=== PATIENT | female | born 1995 | race Caucasian/White ===

== ENCOUNTER 2017-10-22 11:27 | Emergency (ER) | payer OTHER ==
--- OUTSIDE RECORDS SUMMARY | 2017-10-22 11:30 | XMS REPORT ---
:1995 Author Organization [facility] Address [address] [place] [address] Care Team Providers Name Role Phone DR NIDIA LESTER Unavailable Unavailable Problems This patient has no known problems. Allergies, Adverse Reactions, Alerts This patient has no known allergies or adverse reactions. Medications This patient has no known medications. Encounters Start End Encounter Admission Attending Care Care Encounter Date/Time Date/Time Type Type Clinicians Facility Department ID 2017-08-31 2017-09-01 Emergency E NIDIA LESTER [facility] [id number] 21:44:00 01:30:00 Results Test Description Test Time Test Comments Text Results Atomic Results Result Comments THYROID PANEL/SCREEN (TSH) 2017-08-31 22:45:00 Test Item Value Reference Range Comments TSH (test code=A57) 1.110 uIU/mL 0.358-3.740 [id number] 22:40:00 Test Item Value Reference Range Comments ACETAMINPH (test code=94M) <2.0 ug/mL 10.0-30.0 COMPREHENSIVE METABOLIC [id number] 22:40:00 Test Item Value Reference Range Comments GLUCOSE (test code=06D) 72 mg/dL 75-100 SODIUM (test code=01A) 139 mmol/L 136-145 POTASSIUM (test code=01B) 3.6 mmol/L 3.6-5.1 CHLORIDE (test code=04A) 107 mmol/L 98-107 CO2 (test code=02A) 25 mmol/L 22-32 ANION GAP (test code=ANG) 10.6 mmol/L BUN (test code=05D) 22 mg/dL 7-18 CREATININE (test code=03E) 0.7 mg/dL 0.4-1.1 BUN/CREA (test code=BCR) 30 12-20 CALCIUM (test code=09D) 8.4 mg/dL 8.3-9.5 BILI TOTAL (test code=11A) 0.5 mg/dL 0.2-1.0 PROTEIN (test code=07D) 7.8 g/dL 6.4-8.2 ALBUMIN (test code=08D) 4.0 g/dL 3.5-4.8 GLOBULIN (test code=GLB) 3.8 g/dL 1.5-3.8 ALB/GLOB (test code=AGRR) 1.1 1.0-2.6 ALK PHOS (test code=35A) 68 IU/L 42-121 AST (test code=30A) 20 IU/L <=42 ALT (test code=31A) 17 IU/L <=78 BRAIN NATRIURETIC [id number] 22:31:00 Test Item Value Reference Range Comments proBNP (test code=PBNP) 16 pg/mL 0-125 ALCOHOL BLOOD (ETOH)2017-08-31 22:30:00 Test Item Value Reference Range Comments ETOH (test code=HALC) ETHANOL The result is to be used only for medical purposes ALCOHOL (test code=56A) <10 mg/dL <=10 CARDIAC [id number] 22:30:00 Test Item Value Reference Range Comments TROPONIN I (test code=A84) <0.015 ng/mL 0.000-0.045 CKMB (test code=A49) 1.3 ng/mL <=3.6 CPK (test code=32A) 60 IU/L 26-192 [id number] 22:26:00 Test Item Value Reference Range Comments SALICYLATE (test code=94B) 2.9 mg/dL 2.8-20.0 AMYLASE AND [id number] 22:26:00 Test Item Value Reference Range Comments AMYLASE (test code=10A) 24 U/L 28-100 LIPASE (test code=60A) 97 IU/L 73-393 AMMONIA [id number] 22:25:00 Test Item Value Reference Range Comments AMMONIA (test code=54A) 16 umol/L 11-32 [id number] 22:25:00 Test Item Value Reference Range Comments MAGNESIUM (test code=48A) 2.2 mg/dL 1.8-2.4 DRUGS OF [id number] 22:17:00 Test Item Value Reference Range Comments DRUG SCRN (test code=HDOA) URINE DRUG SCREEN This is an unconfirmed screening result and should not be used for non-medical purposes CANNABINOD (test code=88C) Negative NEGATIVE AMPHETAMINE (test code=84A) POSITIVE NEGATIVE BENZODIAZP (test code=86A) POSITIVE NEGATIVE BARBITURAT (test code=85A) Negative NEGATIVE OPIATES (test code=92B) Negative NEGATIVE COCAINE (test code=87A) POSITIVE NEGATIVE PHENCYCLID (test code=66A) Negative NEGATIVE METHADONE (test code=64A) POSITIVE NEGATIVE DOAH (test code=DOAH) URINE DRUG SCREEN Cut-off values are as follows: ---- Cannabinoids 50 ng/mL Cocaine 300 ng/mL Amphetamines 1000 ng/mL Phencyclidine 25 ng/mL Benzodiazepines 200 ng.mL Methadone 300 ng/mL Barbiturates 200 ng/mL Opiates 2000 ng/mL SERUM [id number] 22:17:00 Test Item Value Reference Range Comments PREG SRM (test code=PGS) NEGATIVE NEGATIVE CBC (INCLUDES AUTOMATED DIFFERENTIAL)2017-08-31 22:16:00 Test Item Value Reference Range Comments WBC (test code=WBC) 5.4 10\S\3/uL 4.5-11.0 RBC (test code=RBC) 3.66 10\S\6/uL 4.30-5.70 HGB (test code=HBG) 10.9 g/dL 12.0-15.5 HCT (test code=HCT) 32.3 % 35.0-44.0 MCV (test code=MCV) 88.3 fL 81.0-99.0 MCH (test code=MCH) 29.8 pg 27.0-31.0 MCHC (test code=MCHC) 33.7 g/dL 32.0-36.0 RDW (test code=RDW) 12.7 % 11.5-14.5 PLT (test code=PLT) 278 10\S\3/uL 130-400 MPV (test code=MPV) 11.0 fL 9.4-12.4 NEUTROP # (test code=NE#) 1.5 10\S\3/uL 1.6-8.0 LYMPH # (test code=LY#) 3.1 10\S\3/uL 1.1-3.5 MONOCYTE # (test code=MO#) 0.5 10\S\3/uL 0.0-1.1 EOSINOPH # (test code=EO#) 0.2 10\S\3/uL 0.0-0.7 BASOPHIL # (test code=BA#) 0.0 10\S\3/uL 0.0-0.3 IG # (test code=IG#) 0.01 10\S\3/uL 0.00-0.06 NRBC # (test code=NRBC#) 0.00 10\S\3/uL 0.00-0.01 NEUTROPH % (test code=NE%) 28.2 % 35.0-73.0 LYMPH % (test code=LY%) 58.5 % 20.0-55.0 MONO % (test code=MO%) 9.5 % 2.5-10.0 EOSINOPH % (test code=EO%) 3.2 % 0.0-5.0 BASOPHIL % (test code=BA%) 0.4 % 0.0-2.0 IG % (test code=IG%) 0.2 % 0.0-0.8 NRBC% (test code=NRBC%) 0.0 % 0.0-0.2 MANDIFF (test code=MDIFF) NO NO RBC MORPH (test code=RBCMOR) NORMAL PRO TIME AND [id number] 22:16:00 Test Item Value Reference Range Comments PT (test code=TT) 11.7 s 9.8-13.6 INR (test code=INR) 1.0 INRH (test code=INRH) SUGGESTED THERAPEUTIC RANGE FOR INR: 2.5 - 3.5 For Patients with Prosthetic Valves or Patients with recurrent Thromboembolic Events 2.0 - 3.0 For Most Other Applications PTT (test code=PTT) 18.3 s 20.2-38.0 PTTH (test code=PTTH) To monitor the effectiveness of heparin, we offer the Anti-Xa (Heparin Assay). It can be used for either unfractionated or LMW Heparin. Order Code is ANTI-XA [id number] 22:09:00 Test Item Value Reference Range Comments COLOR (test code=COLU) YELLOW YELLOW CLARITY (test code=CLA) CLEAR CLEAR GLUCOSE UR (test code=UA GLUCOSE) NEGATIVE NEGATIVE BILI UR (test code=BILE) NEGATIVE NEGATIVE KETONES UR (test code=MARTHA) TRACE NEGATIVE SP GRAVITY (test code=SPGR) 1.021 1.005-1.030 PH UR (test code=PH) 6.0 4.5-8.0 PROTEIN UR (test code=PU) NEGATIVE NEGATIVE UROBIL UR (test code=UROQ) 1.0 EU/dL 0.2-1.0 NITRITE UR (test code=NITRITE) NEGATIVE NEGATIVE BLOOD UR (test code=UA BLOOD) NEGATIVE NEGATIVE LEUK ES UR (test code=LEUK) NEGATIVE NEGATIVE
[2017-10-22] MEDS ORDERED: BUPIVACAINE 0.5% PF 10 ML VIAL ONE (11:59)
--- NOTE | 2017-10-22 12:09 | ER ---
Nurse's Notes [facility] Name: Shruti Garcia Age: 21 yrs Sex: Female : 1995 Arrival Date: 10/22/2017 Time: 11:30 Bed 18 Private MD: NIDIA LAMA Diagnosis: Dental Pain;Anxiety disorder, unspecified Presentation: 10/22 11:51 Presenting complaint: Patient states: "I just moved from [place] and I've been having ss bad panic attacks, and I'm out of my alprazolam. Also, my ear and jaw having been hurting since this morning." Pt c/o R ear and jaw pain since this morning. Denies fever. Transition of care: patient was not received from another setting of care. Onset of symptoms is unknown. Risk Assessment: Do you want to hurt yourself or someone else? Patient reports no desire to harm self or others. Initial Sepsis Screen: Does the patient meet any 2 criteria? No. Patient's initial sepsis screen is negative. Does the patient have a suspected source of infection? No. Patient's initial sepsis screen is negative. Care prior to arrival: None. 11:51 Method Of Arrival: Ambulatory 11:51 Acuity: TIMOTEO 4 ss 11:55 Note Pt reports she is currently taking alprazolam because her daughter in May of this year. Historical: - Allergies: 11:55 Neurontin; ss - Home Meds: 11:55 alprazolam 2 mg Oral tab as needed [Active]; ss - PMHx: 11:55 Anxiety; ss - PSHx: 11:55 c section; ss - Immunization history:: Adult Immunizations unknown. - Social history:: Smoking status: Patient uses tobacco products, 4 cigarettes/ day. - Ebola Screening: : Patient denies exposure to infectious person Patient denies travel to an Ebola-affected area in the 21 days before illness onset. Screenin:45 Abuse screen: Denies threats or abuse. Denies injuries from another. Nutritional ss screening: No deficits noted. Tuberculosis screening: Never had TB. Fall Risk None identified. Assessment: 11:45 General: Appears in no apparent distress. comfortable, Behavior is calm, cooperative, ss Denies fever, feeling ill, fatigue, chills. Pain: Complains of pain in right ear and right cheek Pain currently is 8 out of 10 on a pain scale. Quality of pain is described as aching, Pain began this morning Is continuous. Neuro: Level of Consciousness is awake, alert, obeys commands. Cardiovascular: Capillary refill < 3 seconds is brisk in bilateral fingers. Respiratory: Airway is patent Respiratory effort is even, unlabored, Respiratory pattern is regular, symmetrical. GI: Patient currently denies abdominal pain, nausea. EENT: Nares are clear Oral mucosa is moist. Poor dentition noted. Throat is clear. Derm: Skin is intact, is healthy with good turgor, Skin is dry, Skin is pink, warm \\T\\ dry. normal. Musculoskeletal: Circulation, motion, and sensation intact. Range of motion: intact in all extremities, Swelling absent. Vital Signs: 11:55 BP 109 / 57; Pulse 94; Resp 16; Temp 98.5(TE); Pulse Ox 99% on R/A; ss ED Course: 11:30 Patient arrived in ED. sb2 11:31 NIDIA LAMA is Private Physician. sb2 11:44 [facility] 11:44 Deniz Guo MD is Attending Physician. [facility] 11:45 Patient has correct armband on for positive identification. Bed in low position. Call ss light in reach. 11:53 Triage completed. 11:55 Arm band placed on right wrist. 11:56 Jr Navarrete LVN is Primary Nurse. em 12:29 No provider procedures requiring assistance completed. Patient did not have IV access ss during this emergency room visit. Administered Medications: 11:58 CANCELLED (hospital doesn't have stock): [place] - Benzocaine 20 % 1 em application Mucous Membrane in affected area once 12:07 Drug: Marcaine (0.5 %) 10 ml Volume: 10 ml; Route: Infiltration; em Outcome: 12:08 Discharge ordered by . [facility] 12:29 Discharged to home ambulatory. 12:29 Condition: improved 12:29 Discharge instructions given to patient, Instructed on discharge instructions, follow up and referral plans. medication usage, Demonstrated understanding of instructions, follow-up care, medications, Prescriptions given X 2. 12:29 Patient left the ED. Signatures: Gerald Gallegos PA PA jmm Munoz, Edgar, LVN LVN em Marylou Stockton, RN RN ss Billeau, Makayla sb2
--- NOTE | 2017-10-22 12:09 | EDPHYS ---
Physician Documentation [facility] Name: Shruti Garcia Age: 21 yrs Sex: Female : 1995 Arrival Date: 10/22/2017 Time: 11:30 Bed 18 Private MD: NIDIA LAMA ED Physician Deniz Guo HPI: 10/22 11:53 This 21 yrs old Female presents to ER via Unassigned with complaints of PANIC jmm ATTACK, Toothache. 11:53 The patient presents with pain. The problem is located in the right cheek, right ear jmm and mouth. Onset: The symptoms/episode began/occurred gradually, 1 day(s) ago. Patient complains of dental pain radiating to the right ear beginning this morning. Patient states she is also out of her xanax which she takes as needed. Patient denies fever, . Historical: - Allergies: 11:55 Neurontin; ss - Home Meds: 11:55 alprazolam 2 mg Oral tab as needed [Active]; ss - PMHx: 11:55 Anxiety; ss - PSHx: 11:55 c section; ss - Immunization history:: Adult Immunizations unknown. - Social history:: Smoking status: Patient uses tobacco products, 4 cigarettes/ day. - Ebola Screening: : Patient denies exposure to infectious person Patient denies travel to an Ebola-affected area in the 21 days before illness onset. ROS: 11:58 Constitutional: Negative for fever, chills, and weight loss. jmm 11:58 ENT: Positive for dental pain. 11:58 Psych: Positive for anxiety. 11:58 All other systems are negative. Exam: 11:58 Head/Face: atraumatic. jmm 11:58 Constitutional: The patient appears alert, awake, anxious, uncomfortable. 11:58 ENT: Posterior pharynx: is normal, no edema appreciated, Dental exam: avulsion, diffusely, dental caries. 11:58 Neck: ROM/movement: is normal. 11:58 Cardiovascular: Rate: normal. 11:58 Respiratory: the patient does not display signs of respiratory distress, Respirations: normal. 11:58 Musculoskeletal/extremity: ROM: intact in all extremities. 11:58 Skin: Appearance: Color: normal in color. 11:58 Neuro: Orientation: is normal, Mentation: is normal, Memory: is normal, Gait: is steady. 11:58 Psych: Behavior/mood is pleasant, cooperative. Vital Signs: 11:55 BP 109 / 57; Pulse 94; Resp 16; Temp 98.5(TE); Pulse Ox 99% on R/A; ss MDM: 11:51 Patient medically screened. [facility] 12:07 Data reviewed: vital signs, nurses notes. Counseling: I had a detailed discussion with [facility] the patient and/or guardian regarding: the historical points, exam findings, and any diagnostic results supporting the discharge/admit diagnosis, the need for outpatient follow up, to return to the emergency department if symptoms worsen or persist or if there are any questions or concerns that arise at home. 12:30 ED course: The patient experienced immediate relief after administration of marcaine in [facility] the infraorbital region and submental region of the right side of the face. The patient will be prescribed PCN VK and patient will be given a refill of alprazolam. Patient is advised of the need to follow up with PCP for further care of anxiety. Patient is given return precautions for increased pain or swelling, fever, ext. Patient understood and agrees with the plan of care. . Administered Medications: 11:58 CANCELLED (hospital doesn't have stock): [place] - Benzocaine 20 % 1 em application Mucous Membrane in affected area once 12:07 Drug: Marcaine (0.5 %) 10 ml Volume: 10 ml; Route: Infiltration; em Disposition: 14:34 Co-signature as Attending Physician, Deniz Guo MD. rn Disposition: 10/22/17 12:08 Discharged to Home. Impression: Dental Pain, Anxiety disorder, unspecified. - Condition is Stable. - Discharge Instructions: Panic Attacks, Dental Pain. - Prescriptions for penicillin V potassium 500 mg Oral tablet - take 1 tablet by ORAL route every 6 hours for 10 days; 40 tablet. Xanax 1 mg Oral Tablet - take 1 tablet by ORAL route every 8 hours As needed; 10 tablet. - Medication Reconciliation Form, Thank You Letter, Antibiotic Education, Prescription Opioid Use form. - Follow up: Private Physician; When: 2 - 3 days; Reason: Continuance of care. Signatures: Gerald Gallegos PA PA [facility] Jr Navarrete, COMPUTER TECHNICIAN COMPUTER TECHNICIAN em Deniz Guo MD MD rn Marylou Stockton RN RN ss Corrections: (The following items were deleted from the chart) 11:58 11:52 [place] - Benzocaine [place] 20 % 1 application Mucous Membrane in affected em area once ordered. ping 12:29 12:08 10/22/2017 12:08 Discharged to Home. Impression: Dental Pain; Anxiety disorder, ss unspecified. Condition is Stable. Forms are Medication Reconciliation Form, Thank You Letter, Antibiotic Education, Prescription Opioid Use. Follow up: Private Physician; When: 2 - 3 days; Reason: Continuance of care. ping
[2017-10-22 12:33] VITALS: BP 109/57; TEMP 98.5; O2SAT 99
== END 2017-10-22 12:29 | disposition home or self-care (01) ==
LOC: ER 11:27
DX: K08.89 Other specified disorders of teeth and supporting structures (principal); F41.9 Anxiety disorder, unspecified; F17.210 Nicotine dependence, cigarettes, uncomplicated
CPT/HCPCS: 99283

== ENCOUNTER 2017-10-22 18:56 | Emergency (ER) | payer OTHER ==
--- OUTSIDE RECORDS SUMMARY | 2017-10-22 18:59 | XMS REPORT ---
:1995 [facility] Address [address] [place] [address] Care Team Providers Name Role Phone DR NIDIA LESTER Unavailable Unavailable Problems This patient has no known problems. Allergies, Adverse Reactions, Alerts This patient has no known allergies or adverse reactions. Medications This patient has no known medications. Encounters Start End Encounter Admission Attending Care Care Encounter Date/Time Date/Time Type Type Clinicians Facility Department ID 2017-08-31 2017-09-01 Emergency E NIDIA LESTER [facility] [id number] 21:44:00 01:30:00 Results Test Description Test Time Test Comments Text Results Atomic Results Result Comments THYROID PANEL/SCREEN (TSH) 2017-08-31 22:45:00 Test Item Value Reference Range Comments TSH (test code=A57) 1.110 uIU/mL 0.358-3.740 [id number] 22:40:00 Test Item Value Reference Range Comments ACETAMINPH (test code=94M) <2.0 ug/mL 10.0-30.0 COMPREHENSIVE METABOLIC [id number] 22:40:00 Test Item Value Reference Range Comments [...] (test code=31A) 17 IU/L <=78 BRAIN NATRIURETIC [id number] 22:31:00 Test Item Value Reference Range Comments proBNP (test code=PBNP) 16 pg/mL 0-125 ALCOHOL BLOOD (ETOH)2017-08-31 22:30:00 Test Item Value Reference Range Comments ETOH (test code=HALC) ETHANOL The result is to be used only for medical purposes ALCOHOL (test code=56A) <10 mg/dL <=10 CARDIAC [id number] 22:30:00 Test Item Value Reference Range Comments TROPONIN I (test code=A84) <0.015 ng/mL 0.000-0.045 CKMB (test code=A49) 1.3 ng/mL <=3.6 CPK (test code=32A) 60 IU/L 26-192 [id number] 22:26:00 Test Item Value Reference Range Comments SALICYLATE (test code=94B) 2.9 mg/dL 2.8-20.0 AMYLASE AND [id number] 22:26:00 Test Item Value Reference Range Comments AMYLASE (test code=10A) 24 U/L 28-100 LIPASE (test code=60A) 97 IU/L 73-393 AMMONIA [id number] 22:25:00 Test Item Value Reference Range Comments AMMONIA (test code=54A) 16 umol/L 11-32 [id number] 22:25:00 Test Item Value Reference Range Comments MAGNESIUM (test code=48A) 2.2 mg/dL 1.8-2.4 DRUGS OF [id number] 22:17:00 Test Item Value Reference Range Comments [...] Barbiturates 200 ng/mL Opiates 2000 ng/mL SERUM [id number] 22:17:00 Test Item Value Reference Range Comments [...] MORPH (test code=RBCMOR) NORMAL PRO TIME AND [id number] 22:16:00 Test Item Value Reference Range Comments [...] or LMW Heparin. Order Code is ANTI-XA [id number] 22:09:00 Test Item Value Reference Range Comments [...]
[2017-10-22] MEDS ORDERED: HYDROCODONE/APAP 5/325 MG TAB ONE (19:46)
--- NOTE | 2017-10-22 19:51 | ER ---
Nurse's Notes [facility] Name: Shruti Garcia Age: 21 yrs Sex: Female : 1995 Arrival Date: 10/22/2017 Time: 19:00 Bed 19 Private MD: NIDIA LAMA Diagnosis: Dental Pain Presentation: 10/22 19:20 Presenting complaint: Patient states: "I came in here earlier when my ear and jaw pain. aj1 He gave me shot up here, but it didn't work for my ear. The pain is bad. Its intolerable. I can't eat, I can't nothing" Denies N/V/D, denies fever. Transition of care: patient was not received from another setting of care. Onset of symptoms was October 22, 2017. Risk Assessment: Do you want to hurt yourself or someone else? Patient reports no desire to harm self or others. Initial Sepsis Screen: Does the patient meet any 2 criteria? No. Patient's initial sepsis screen is negative. Does the patient have a suspected source of infection? No. Patient's initial sepsis screen is negative. Care prior to arrival: None. 19:20 Method Of Arrival: EMS: [facility] aj1 19:20 Acuity: TIMOTEO 4 aj1 Triage Assessment: 19:22 General: Appears uncomfortable, Behavior is anxious. Pain: Complains of pain in right aj1 ear and right jaw Pain does not radiate. Pain currently is 10 out of 10 on a pain scale. Quality of pain is described as sharp, throbbing, Pain began this morning Is continuous. EENT: Reports pain in right ear and right jaw. Neuro: Level of Consciousness is awake, alert, obeys commands, Oriented to person, place, time, situation, Speech is normal, Facial symmetry appears normal. Cardiovascular: Patient's skin is warm and dry. Respiratory: Airway is patent Respiratory effort is even, unlabored, Respiratory pattern is regular, symmetrical. GI: No signs and/or symptoms were reported involving the gastrointestinal system. Derm: Skin is pink, warm \\T\\ dry. black. Musculoskeletal: Circulation, motion, and sensation intact. DATA CONSULTANT: 19:22 LMP 09/24/2017 aj1 Historical: - Allergies: 19:22 Neurontin; aj1 19:22 Clindamycin; aj1 - Home Meds: 19:22 alprazolam 2 mg Oral tab as needed [Active]; aj1 - PMHx: 19:22 Anxiety; PREECLAMPSIA; aj1 - PSHx: 19:22 ; aj1 - Immunization history:: Adult Immunizations up to date. - Social history:: Smoking status: Patient uses tobacco products, 4 cigarettes per day. - Ebola Screening: : Patient denies travel to an Ebola-affected area in the 21 days before illness onset. Screenin:56 Abuse screen: Denies threats or abuse. Denies injuries from another. Nutritional bs1 screening: No deficits noted. Tuberculosis screening: No symptoms or risk factors identified. Fall Risk None identified. Assessment: 19:30 General: Appears uncomfortable, Behavior is anxious. Pain: Complains of pain in face bs1 and right jaw and right ear Pain radiates to right ear. Neuro: Level of Consciousness is awake, alert, obeys commands, Oriented to person, place, time, situation, Appropriate for age. Cardiovascular: Denies chest pain, shortness of breath, Heart tones S1 S2 present Capillary refill < 3 seconds Patient's skin is warm and dry. Respiratory: Airway is patent Trachea midline Breath sounds are clear bilaterally. GI: No signs and/or symptoms were reported involving the gastrointestinal system. : No signs and/or symptoms were reported regarding the genitourinary system. Derm: Skin is intact, Skin is pink, warm \\T\\ dry. normal. Musculoskeletal: Circulation, motion, and sensation intact. Capillary refill < 3 seconds, Range of motion: intact in all extremities. 19:30 EENT: Poor dentition noted. Reports pain in face and right jaw and right ear. bs1 Vital Signs: 19:22 BP 108 / 79; Pulse 97; Resp 18; Temp 98.5(O); Pulse Ox 99% on R/A; Weight 49.9 kg (R); aj1 Height 5 ft. 4 in. (162.56 cm) (R); Pain 10/10; 19:22 Body Mass Index 18.88 (49.90 kg, 162.56 cm) aj1 ED Course: 19:00 Patient arrived in ED. sb2 19:01 NIDIA LAMA is Private Physician. sb2 19:22 Triage completed. aj1 19:22 Arm band placed on Patient placed in an exam room. aj1 19:31 Cox, Zeinab, RN is Primary Nurse. bs1 19:40 Gerald Gallegos PA is PHCP. [facility] 19:40 Tye Gallegos MD is Attending Physician. [facility] 19:56 Patient has correct armband on for positive identification. Bed in low position. Call bs1 light in reach. Side rails up X 1. Pulse ox on. NIBP on. 19:56 No provider procedures requiring assistance completed. Patient did not have IV access bs1 during this emergency room visit. Administered Medications: 19:46 Drug: [place] 5 mg-325 mg 1 tabs Route: PO; bs1 19:57 Follow up: Response: No adverse reaction bs1 Outcome: 19:51 Discharge ordered by MD. [facility] 19:56 Discharged to home ambulatory. bs1 19:56 Discharged to home with significant other. 19:56 Condition: stable 19:56 Discharge instructions given to patient, Instructed on discharge instructions, follow up and referral plans. medication usage, Demonstrated understanding of instructions, follow-up care, medications, Prescriptions given X 1. 19:57 Patient left the ED. bs1 Signatures: Sanjuanita Win RN RN aj1 Gerald Gallegos PA PA [facility] Zeinab Cox, RN RN bs1 Makayla Novak sb2 Corrections: (The following items were deleted from the chart) 19:49 19:30 EENT: No signs and/or symptoms were reported regarding the EENT system. bs1 bs1
--- NOTE | 2017-10-22 19:52 | EDPHYS ---
Physician Documentation [facility] Name: Shruti Garcia Age: 21 yrs Sex: Female : 1995 Arrival Date: 10/22/2017 Time: 19:00 Bed 19 Private MD: NIDIA LAMA ED Physician Tye Gallegos HPI: 10/22 19:42 This 21 yrs old Female presents to ER via EMS with complaints of PANIC jmm ATTACK, Toothache. 19:42 The patient presents with pain. Onset: The symptoms/episode began/occurred gradually, jmm today. Duration: The symptoms are continuous. Associated signs and symptoms: Pertinent negatives: fever. This is a 21 year old female with no chronic medical conditions that presents to the ED with right sided dental pain and right ear pain. Patient was previously evaluated in the ED and prescribed antibiotics. Patient states her dental bloack has worn off. . 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 - Social history:: Smoking status: Patient uses tobacco products, 4 cigarettes per day. - Ebola Screening: : Patient denies travel to an Ebola-affected area in the 21 days before illness onset. ROS: 19:42 Constitutional: Negative for fever. jmm 19:42 ENT: Positive for dental pain. 19:42 Psych: Positive for anxiety. 19:42 All other systems are negative. Exam: 19:42 Head/Face: atraumatic. jmm 19:42 Constitutional: The patient appears in no acute distress, alert, awake. 19:42 Head/face: No facial swelling appreciated, no submandibular tenderness appreciated. . 19:42 ENT: Dental exam: dental caries, diffusely. 19:42 Neck: ROM/movement: is normal. 19:42 Cardiovascular: Rate: normal. 19:42 Respiratory: the patient does not display signs of respiratory distress, Respirations: normal. 19:42 Musculoskeletal/extremity: ROM: intact in all extremities. 19:42 Skin: Appearance: Color: normal in color. 19:42 Neuro: Orientation: is normal, Mentation: is normal, Memory: is normal, Gait: is steady. 19:42 Psych: Behavior/mood is pleasant, cooperative. Vital Signs: 19:22 BP 108 / 79; Pulse 97; Resp 18; Temp 98.5(O); Pulse Ox 99% on R/A; Weight 49.9 kg (R); aj1 Height 5 ft. 4 in. (162.56 cm) (R); Pain 10/10; 19:22 Body Mass Index 18.88 (49.90 kg, 162.56 cm) aj1 MDM: 19:42 Patient medically screened. [facility] 19:51 Data reviewed: vital signs, nurses notes. Counseling: I had a detailed discussion with [facility] the patient and/or guardian regarding: the historical points, exam findings, and any diagnostic results supporting the discharge/admit diagnosis, radiology results, the need for outpatient follow up, to return to the emergency department if symptoms worsen or persist or if there are any questions or concerns that arise at home. Administered Medications: 19:46 Drug: [place] 5 mg-325 mg 1 tabs Route: PO; bs1 19:57 Follow up: Response: No adverse reaction bs1 Disposition: 10/22/17 19:51 Discharged to Home. Impression: Dental Pain. - Condition is Stable. - Discharge Instructions: Dental Pain. - Prescriptions for Tramadol 50 mg Oral Tablet - take 1 tablet by ORAL route every 8 hours as needed; 6 tablet. - Medication Reconciliation Form, Thank You Letter, Antibiotic Education, Prescription Opioid Use form. - Follow up: Private Physician; When: 2 - 3 days; Reason: Continuance of care. Addendum: 10/24/2017 08:39 Co-signature as Attending Physician, Tye Gallegos MD I agree with the assessment and c reyes plan of care. Signatures: Sanjuanita Win, RN RN aj1 Tye Gallegos MD MD cha Mickail, Joel, PA PA [facility] Zeinab Cox, RN RN bs1 Corrections: (The following items were deleted from the chart) 10/22 19:57 19:51 10/22/2017 19:51 Discharged to Home. Impression: Dental Pain. Condition is bs1 Stable. Forms are Medication Reconciliation Form, Thank You Letter, Antibiotic Education, Prescription Opioid Use. Follow up: Private Physician; When: 2 - 3 days; Reason: Continuance of care. ping
[2017-10-22 20:03] VITALS: BP 108/79; TEMP 98.5; O2SAT 99
== END 2017-10-22 19:57 | disposition home or self-care (01) ==
LOC: ER 18:56
DX: K08.89 Other specified disorders of teeth and supporting structures (principal); Z72.0 Tobacco use; Z88.3 Allergy status to other anti-infective agents; Z88.8 Allergy status to other drugs, medicaments and biological substances
CPT/HCPCS: 99284

== ENCOUNTER 2017-11-12 14:24 | Emergency (ER) | payer OTHER ==
--- OUTSIDE RECORDS SUMMARY | 2017-11-12 14:26 | XMS REPORT ---
:1995 Author Organization [facility] Address [address] [place] [address] Dr. Perez [address] [place] [id number] Care Team Providers Name Role Phone DR NIDIA LESTER Unavailable Unavailable Problems This patient has no known problems. Allergies, Adverse Reactions, Alerts This patient has no known allergies or adverse reactions. Medications This patient has no known medications. Encounters Start End Encounter Admission Attending Care Care Encounter Date/Time Date/Time Type Type Clinicians Facility Department ID 2017-08-31 2017-09-01 Emergency E NIDIA LESTER [facility] [id number] 21:44:00 01:30:00 Results Test Description Test Time Test Comments Text Results Atomic Results Result Comments THYROID PANEL/SCREEN (TSH) 2017-08-31 22:45:00 Test Item Value Reference Range Comments TSH (test code=A57) 1.110 uIU/mL 0.358-3.740 [id number] 22:40:00 Test Item Value Reference Range Comments ACETAMINPH (test code=94M) <2.0 ug/mL 10.0-30.0 COMPREHENSIVE METABOLIC [id number] 22:40:00 Test Item Value Reference Range Comments [...] (test code=31A) 17 IU/L <=78 BRAIN NATRIURETIC [id number] 22:31:00 Test Item Value Reference Range Comments proBNP (test code=PBNP) 16 pg/mL 0-125 ALCOHOL BLOOD (ETOH)2017-08-31 22:30:00 Test Item Value Reference Range Comments ETOH (test code=HALC) ETHANOL The result is to be used only for medical purposes ALCOHOL (test code=56A) <10 mg/dL <=10 CARDIAC [id number] 22:30:00 Test Item Value Reference Range Comments TROPONIN I (test code=A84) <0.015 ng/mL 0.000-0.045 CKMB (test code=A49) 1.3 ng/mL <=3.6 CPK (test code=32A) 60 IU/L 26-192 [id number] 22:26:00 Test Item Value Reference Range Comments SALICYLATE (test code=94B) 2.9 mg/dL 2.8-20.0 AMYLASE AND [id number] 22:26:00 Test Item Value Reference Range Comments AMYLASE (test code=10A) 24 U/L 28-100 LIPASE (test code=60A) 97 IU/L 73-393 AMMONIA [id number] 22:25:00 Test Item Value Reference Range Comments AMMONIA (test code=54A) 16 umol/L 11-32 [id number] 22:25:00 Test Item Value Reference Range Comments MAGNESIUM (test code=48A) 2.2 mg/dL 1.8-2.4 DRUGS OF [id number] 22:17:00 Test Item Value Reference Range Comments [...] Barbiturates 200 ng/mL Opiates 2000 ng/mL SERUM [id number] 22:17:00 Test Item Value Reference Range Comments [...] MORPH (test code=RBCMOR) NORMAL PRO TIME AND [id number] 22:16:00 Test Item Value Reference Range Comments [...] or LMW Heparin. Order Code is ANTI-XA [id number] 22:09:00 Test Item Value Reference Range Comments [...]
--- NOTE | 2017-11-12 15:37 | ER ---
Nurse's Notes [facility] Name: Shruti Garcia Age: 21 yrs Sex: Female : 1995 Arrival Date: 11/12/2017 Time: 14:26 Bed 27 Private MD: Diagnosis: Periapical abscess without sinus;Anxiety disorder due to known physiological condition Presentation: 11/12 14:29 Presenting complaint: Patient states: "I have an abscess tooth and I just need a refill aa5 of my alprazolam until I can see the anxiety doctor this because I can't get it under control". Pt states "I am scheduled to get the tooth out on ". Transition of care: patient was not received from another setting of care. Onset of symptoms was October 2017. Risk Assessment: Do you want to hurt yourself or someone else? Patient reports no desire to harm self or others. Initial Sepsis Screen: Does the patient meet any 2 criteria? No. Patient's initial sepsis screen is negative. Does the patient have a suspected source of infection? No. Patient's initial sepsis screen is negative. Care prior to arrival: None. 14:29 Method Of Arrival: Ambulatory aa5 14:29 Acuity: TIMOTEO 5 aa5 Triage Assessment: 15:44 EENT:. mg2 15:50 EENT: Reports pain in upper right second molar and upper right first molar (#3) and mg2 upper right second molar (#2). 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 - Social history:: Smoking status: Patient/guardian denies using tobacco, Patient/guardian denies using alcohol, street drugs, IV drugs. - Ebola Screening: : No symptoms or risks identified at this time. Screenin:09 Abuse screen: Denies threats or abuse. Denies injuries from another. Nutritional mg2 screening: No deficits noted. Tuberculosis screening: No symptoms or risk factors identified. Fall Risk None identified. Assessment: 15:04 General: Appears in no apparent distress. comfortable, Behavior is calm, cooperative. mg2 Pain: Complains of pain in teeth Pain does not radiate. Pain currently is 5 out of 10 on a pain scale. Quality of pain is described as aching, Pain began 2 weeks Is intermittent, Alleviated by medications. Neuro: Level of Consciousness is awake, alert, obeys commands, Oriented to person, place, time, situation. Cardiovascular: Capillary refill < 3 seconds Patient's skin is warm and dry. Respiratory: Airway is patent Respiratory effort is even, unlabored, Respiratory pattern is regular, symmetrical. GI: No signs and/or symptoms were reported involving the gastrointestinal system. : No signs and/or symptoms were reported regarding the genitourinary system. EENT: Dental caries noted in upper right second molar (#2) and upper right first molar (#3). Derm: Skin is intact, Skin is pink, warm \\T\\ dry. normal. Musculoskeletal: No signs and/or symptoms reported regarding the musculoskeletal system. Vital Signs: 14:31 BP 128 / 81; Pulse 119; Resp 20 S; Temp 98.3(O); Pulse Ox 98% on R/A; Weight 52.16 kg aa5 (R); Height 5 ft. 3 in. (160.02 cm) (R); Pain 10/10; 15:10 BP 100 / 72; Pulse 89; Resp 18; Pulse Ox 100% on R/A; Pain 4/10; mg2 14:31 Body Mass Index 20.37 (52.16 kg, 160.02 cm) aa5 ED Course: 14:26 Patient arrived in ED. aa5 14:30 Triage completed. aa5 14:30 Arm band placed on. aa5 14:56 Sp Bolden, MARTIN is Primary Nurse. mg2 15:02 Jorge Blackwell PA is PHCP. jr8 15:02 Deniz Guo MD is Attending Physician. jr8 15:10 Patient has correct armband on for positive identification. Bed in low position. Call mg2 light in reach. Side rails up X 1. Door closed. Warm blanket given. 15:43 No provider procedures requiring assistance completed. Patient did not have IV access mg2 during this emergency room visit. Administered Medications: No medications were administered Outcome: 15:36 Discharge ordered by . jr8 15:43 Discharged to home ambulatory, with family. mg2 15:43 Condition: stable 15:43 Discharge instructions given to patient, family, Instructed on discharge instructions, follow up and referral plans. medication usage, Demonstrated understanding of instructions, follow-up care, medications, Prescriptions given X 2. 15:45 Patient left the ED. mg2 Signatures: Digna Villagomez RN RN aa5 Jorge Blackwell PA PA jr8 Sp Bolden RN RN mg2 Corrections: (The following items were deleted from the chart) 14:31 14:29 Presenting complaint: Patient states: "I have an abscess tooth and I just need a aa5 refill of my alprazolam until I can see the anxiety doctor this Thday". aa5 14:32 14:29 Presenting complaint: Patient states: "I have an abscess tooth and I just need a aa5 refill of my alprazolam until I can see the anxiety doctor this Thday". Pt states "I am scheduled to get the tooth out on " aa5
--- NOTE | 2017-11-12 15:37 | EDPHYS ---
Physician Documentation [facility] Name: Shruti Garcia Age: 21 yrs Sex: Female : 1995 Arrival Date: 11/12/2017 Time: 14:26 Bed 27 Private MD: ED Physician Deniz Guo HPI: 11/12 16:00 This 21 yrs old Female presents to ER via Ambulatory with complaints of jr8 Anxiety. 16:00 Patient stated that she thinks she has another tooth abscess. Stated that she has had jr8 this once before and got better after antibiotics. Stated that she has both PCP and dentist appointment for this . Stated that she is out of her xanax and is having bad panic attacks before . Severity of symptoms: At their worst the symptoms were moderate in the emergency department the symptoms are unchanged. The patient has experienced a previous episode. The patient has not recently seen a physician. 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 - Social history:: Smoking status: Patient/guardian denies using tobacco, Patient/guardian denies using alcohol, street drugs, IV drugs. - Ebola Screening: : No symptoms or risks identified at this time. ROS: 16:00 Eyes: Negative for injury, pain, redness, and discharge, Neck: Negative for injury, jr8 pain, and swelling, Cardiovascular: Negative for chest pain, palpitations, and edema, Respiratory: Negative for shortness of breath, cough, wheezing, and pleuritic chest pain, Abdomen/GI: Negative for abdominal pain, nausea, vomiting, diarrhea, and constipation, Back: Negative for injury and pain, MS/Extremity: Negative for injury and deformity, Skin: Negative for injury, rash, and discoloration, Neuro: Negative for headache, weakness, numbness, tingling, and seizure. 16:00 ENT: Positive for dental pain, Gum pain Negative for sinus congestion, sinus pain, sore throat, difficulty swallowing, difficulty handling secretions, hoarseness. 16:00 Psych: Positive for anxiety, depression, Negative for homicidal ideation, insomnia, suicide gesture, suicidal ideation. Exam: 16:00 Eyes: Pupils equal round and reactive to light, extra-ocular motions intact. Lids and jr8 lashes normal. Conjunctiva and sclera are non-icteric and not injected. Cornea within normal limits. Periorbital areas with no swelling, redness, or edema. Neck: Trachea midline, no thyromegaly or masses palpated, and no cervical lymphadenopathy. Supple, full range of motion without nuchal rigidity, or vertebral point tenderness. No Meningismus. Cardiovascular: Regular rate and rhythm with a normal S1 and S2. No gallops, murmurs, or rubs. Normal PMI, no JVD. No pulse deficits. Respiratory: Lungs have equal breath sounds bilaterally, clear to auscultation and percussion. No rales, rhonchi or wheezes noted. No increased work of breathing, no retractions or nasal flaring. Abdomen/GI: Soft, non-tender, with normal bowel sounds. No distension or tympany. No guarding or rebound. No evidence of tenderness throughout. Back: No spinal tenderness. No costovertebral tenderness. Full range of motion. Skin: Warm, dry with normal turgor. Normal color with no rashes, no lesions, and no evidence of cellulitis. MS/ Extremity: Pulses equal, no cyanosis. Neurovascular intact. Full, normal range of motion. Neuro: Awake and alert, GCS 15, oriented to person, place, time, and situation. Cranial nerves II-XII grossly intact. Motor strength 5/5 in all extremities. Sensory grossly intact. Cerebellar exam normal. Normal gait. 16:00 ENT: External ear(s): are unremarkable, Ear canal(s): are normal, TM's: are normal, Nose: is normal, Mouth: Lips: moist, Oral mucosa: pink and intact, moist, Gums: pink, reddened, swollen, on the upper right second molar, Dental exam: pain, that is moderate, specifically in the upper right second molar (#2). 16:00 Psych: Behavior/mood is cooperative, anxious, depressed, Patient depressed and anxious over recent of her child. Affect is calm, Oriented to person, place, time, Patient has no thoughts/intents to harm self or others. Judgement / Insight is normal. Memory is normal. Delusions/hallucinations are not present. Vital Signs: 14:31 BP 128 / 81; Pulse 119; Resp 20 S; Temp 98.3(O); Pulse Ox 98% on R/A; Weight 52.16 kg aa5 (R); Height 5 ft. 3 in. (160.02 cm) (R); Pain 10/10; 15:10 BP 100 / 72; Pulse 89; Resp 18; Pulse Ox 100% on R/A; Pain 4/10; mg2 14:31 Body Mass Index 20.37 (52.16 kg, 160.02 cm) aa5 MDM: 15:02 Patient medically screened. jr8 15:35 Data reviewed: vital signs, nurses notes, and as a result, I will discharge patient. jr8 Data interpreted: Pulse oximetry: on room air is 100 %. Interpretation: normal. Counseling: I had a detailed discussion with the patient and/or guardian regarding: the historical points, exam findings, and any diagnostic results supporting the discharge/admit diagnosis, the need for outpatient follow up, a dentist, a family practitioner, to return to the emergency department if symptoms worsen or persist or if there are any questions or concerns that arise at home. Administered Medications: No medications were administered Disposition: 16:13 Co-signature as Attending Physician, Deniz Guo MD. rn Disposition: 11/12/17 15:36 Discharged to Home. Impression: Periapical abscess without sinus, Anxiety disorder due to known physiological condition. - Condition is Stable. - Discharge Instructions: Panic Attacks, Dental Abscess, Root Canal. - Prescriptions for Augmentin 875- 125 mg Oral Tablet - take 1 tablet by ORAL route every 12 hours for 10 days; 20 tablet. Xanax 1 mg Oral Tablet - take 1 tablet by ORAL route every 8 hours As needed; 10 tablet. - Medication Reconciliation Form, Thank You Letter, Antibiotic Education, Prescription Opioid Use form. - Follow up: Private Physician; When: 2 - 3 days; Reason: Recheck today's complaints, Continuance of care, Re-evaluation by your physician. - Problem is new. - Symptoms have improved. Signatures: Deniz Guo MD MD rn Calderon, Audri, RN RN aa5 Jorge Blackwell PA PA jr8 Gardose, Sp, RN RN mg2 Corrections: (The following items were deleted from the chart) 15:45 15:36 11/12/2017 15:36 Discharged to Home. Impression: Periapical abscess without mg2 sinus; Anxiety disorder due to known physiological condition. Condition is Stable. Forms are Medication Reconciliation Form, Thank You Letter, Antibiotic Education, Prescription Opioid Use. Follow up: Private Physician; When: 2 - 3 days; Reason: Recheck today's complaints, Continuance of care, Re-evaluation by your physician. Problem is new. Symptoms have improved. jr8
[2017-11-12 15:52] VITALS: TEMP 98.3
[2017-11-12 15:53] VITALS: BP 100/72; O2SAT 100
== END 2017-11-12 15:45 | disposition home or self-care (01) ==
LOC: ER 14:24
DX: K04.6 Periapical abscess with sinus (principal); F41.9 Anxiety disorder, unspecified; Z88.1 Allergy status to other antibiotic agents; Z88.8 Allergy status to other drugs, medicaments and biological substances
CPT/HCPCS: 99282

== ENCOUNTER 2017-11-22 22:21 | Emergency (ER) | payer OTHER ==
--- OUTSIDE RECORDS SUMMARY | 2017-11-22 22:24 | XMS REPORT ---
:1995 Author [facility] Address [address] [place] [address] Dr. Perez [address] [place] [address] Care Team Providers Name Role Phone DR NIDIA LESTER Unavailable Unavailable Problems This patient has no known problems. Allergies, Adverse Reactions, Alerts This patient has no known allergies or adverse reactions. Medications This patient has no known medications. Encounters Start End Encounter Admission Attending Care Care Encounter Date/Time Date/Time Type Type Clinicians Facility Department ID 2017-08-31 2017-09-01 Emergency E NIDIA LESTER [facility] [id number] 21:44:00 01:30:00 Results Test Description Test Time Test Comments Text Results Atomic Results Result Comments THYROID PANEL/SCREEN (TSH) 2017-08-31 22:45:00 Test Item Value Reference Range Comments TSH (test code=A57) 1.110 uIU/mL 0.358-3.740 [id number] 22:40:00 Test Item Value Reference Range Comments ACETAMINPH (test code=94M) <2.0 ug/mL 10.0-30.0 COMPREHENSIVE METABOLIC [id number] 22:40:00 Test Item Value Reference Range Comments [...] (test code=31A) 17 IU/L <=78 BRAIN NATRIURETIC [id number] 22:31:00 Test Item Value Reference Range Comments proBNP (test code=PBNP) 16 pg/mL 0-125 ALCOHOL BLOOD (ETOH)2017-08-31 22:30:00 Test Item Value Reference Range Comments ETOH (test code=HALC) ETHANOL The result is to be used only for medical purposes ALCOHOL (test code=56A) <10 mg/dL <=10 CARDIAC [id number] 22:30:00 Test Item Value Reference Range Comments TROPONIN I (test code=A84) <0.015 ng/mL 0.000-0.045 CKMB (test code=A49) 1.3 ng/mL <=3.6 CPK (test code=32A) 60 IU/L 26-192 [id number] 22:26:00 Test Item Value Reference Range Comments SALICYLATE (test code=94B) 2.9 mg/dL 2.8-20.0 AMYLASE AND [id number] 22:26:00 Test Item Value Reference Range Comments AMYLASE (test code=10A) 24 U/L 28-100 LIPASE (test code=60A) 97 IU/L 73-393 AMMONIA [id number] 22:25:00 Test Item Value Reference Range Comments AMMONIA (test code=54A) 16 umol/L 11-32 [id number] 22:25:00 Test Item Value Reference Range Comments MAGNESIUM (test code=48A) 2.2 mg/dL 1.8-2.4 DRUGS OF [id number] 22:17:00 Test Item Value Reference Range Comments [...] Barbiturates 200 ng/mL Opiates 2000 ng/mL SERUM [id number] 22:17:00 Test Item Value Reference Range Comments [...] MORPH (test code=RBCMOR) NORMAL PRO TIME AND [id number] 22:16:00 Test Item Value Reference Range Comments [...] or LMW Heparin. Order Code is ANTI-XA [id number] 22:09:00 Test Item Value Reference Range Comments [...]
[2017-11-22] MEDS ORDERED: HYDROCODONE/APAP 5/325 MG TAB ONE (23:23)
[2017-11-22] MEDS ORDERED: ONDANSETRON 4 MG (ODT) TAB ONE (23:23)
[2017-11-23] MEDS ORDERED: IBUPROFEN 200 MG TAB PO ONE (00:11)
[2017-11-23] MEDS ORDERED: BUPIVACAINE 0.5% PF 10 ML VIAL ONE (00:11)
--- NOTE | 2017-11-23 00:42 | EDPHYS ---
Physician Documentation [facility] Name: Shruti Garcia Age: 21 yrs Sex: Female : 1995 Arrival Date: 11/22/2017 Time: 22:23 Bed 30 Private MD: NIDIA LAMA ED Physician Nils Henry HPI: 11/23 07:47 This 21 yrs old Female presents to ER via Ambulatory with complaints of TOOTH wa PAIN AFTER EXTRACTION. 07:47 The patient presents with pain, dry socket. The problem is located in the R upper wa molar. Onset: The symptoms/episode began/occurred today. Duration: The symptoms are continuous, and are steadily getting worse. Modifying factors: The symptoms are alleviated by nothing, the symptoms are aggravated by nothing. Associated signs and symptoms: The patient has no apparent associated signs or symptoms. Severity of symptoms: At their worst the symptoms were moderate, in the emergency department the symptoms are actually worse, moderately. The patient has not experienced similar symptoms in the past. The patient has been recently seen by a physician: her dentist. 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 - Social history:: Smoking status: Patient uses tobacco products, smokes one-half pack cigarettes per day. - Ebola Screening: : Patient negative for fever greater than or equal to 101.5 degrees Fahrenheit, and additional compatible Ebola Virus Disease symptoms Patient denies exposure to infectious person Patient denies travel to an Ebola-affected area in the 21 days before illness onset. - Family history:: not pertinent. - Hospitalizations: : No recent hospitalization is reported. ROS: 11/23 07:49 Constitutional: Negative for fever, chills, and weight loss, Eyes: Negative for injury, wa pain, redness, and discharge, Neck: Negative for injury, pain, and swelling, Cardiovascular: Negative for chest pain, palpitations, and edema, Respiratory: Negative for shortness of breath, cough, wheezing, and pleuritic chest pain, Abdomen/GI: Negative for abdominal pain, nausea, vomiting, diarrhea, and constipation, Back: Negative for injury and pain, : Negative for injury, bleeding, discharge, and swelling, MS/Extremity: Negative for injury and deformity, Skin: Negative for injury, rash, and discoloration, Neuro: Negative for headache, weakness, numbness, tingling, and seizure, Psych: Negative for depression, anxiety, suicide ideation, homicidal ideation, and hallucinations. ENT: Positive for dental pain. Exam: 07:49 Constitutional: This is a well developed, well nourished patient who is awake, alert, wa and in no acute distress. Head/Face: Normocephalic, atraumatic. Eyes: Pupils equal round and reactive to light, extra-ocular motions intact. Lids and lashes normal. Conjunctiva and sclera are non-icteric and not injected. Cornea within normal limits. Periorbital areas with no swelling, redness, or edema. Neck: Trachea midline, no thyromegaly or masses palpated, and no cervical lymphadenopathy. Supple, full range of motion without nuchal rigidity, or vertebral point tenderness. No Meningismus. Chest/axilla: Normal chest wall appearance and motion. Nontender with no deformity. No lesions are appreciated. Cardiovascular: Regular rate and rhythm with a normal S1 and S2. No gallops, murmurs, or rubs. Normal PMI, no JVD. No pulse deficits. Respiratory: Lungs have equal breath sounds bilaterally, clear to auscultation and percussion. No rales, rhonchi or wheezes noted. No increased work of breathing, no retractions or nasal flaring. Abdomen/GI: Soft, non-tender, with normal bowel sounds. No distension or tympany. No guarding or rebound. No evidence of tenderness throughout. Back: No spinal tenderness. No costovertebral tenderness. Full range of motion. Skin: Warm, dry with normal turgor. Normal color with no rashes, no lesions, and no evidence of cellulitis. MS/ Extremity: Pulses equal, no cyanosis. Neurovascular intact. Full, normal range of motion. Neuro: Awake and alert, GCS 15, oriented to person, place, time, and situation. Cranial nerves II-XII grossly intact. Motor strength 5/5 in all extremities. Sensory grossly intact. Cerebellar exam normal. Normal gait. Psych: Awake, alert, with orientation to person, place and time. Behavior, mood, and affect are within normal limits. 07:49 ENT: Dental exam: noted missing R upper molar. socket tender to palpation. no abscess. Vital Signs: 11/22 22:43 BP 119 / 91; Pulse 86; Resp 20; Temp 98.0(O); Pulse Ox 100% on R/A; Weight 52.16 kg fc (R); Height 5 ft. 4 in. (162.56 cm) (R); Pain 10/10; 11/23 00:48 BP 124 / 90; Pulse 87; Resp 20; Pulse Ox 100% on R/A; kr2 11/22 22:43 Body Mass Index 19.74 (52.16 kg, 162.56 cm) Procedures: 07:51 Nerve block: (dental) of periapical block, Medication: Marcaine 0.5%, Amount: 3 mls wa were injected, Effect: the patient's symptoms are improved, Set up for procedure. Performed by Nils Henry MD Patient tolerated well. MDM: 11/22 22:56 Patient medically screened. mn 11/23 07:52 Data reviewed: vital signs, nurses notes. mn 07:52 Differential diagnosis: dry socket. wa Administered Medications: 11/22 23:21 Drug: [place] 5 mg-325 mg 1 tabs Route: PO; kr2 11/23 00:25 Follow up: Response: No adverse reaction; Pain is decreased [facility] 11/22 23:21 Drug: Zofran 4 mg Route: PO; kr2 11/23 00:25 Follow up: Response: No adverse reaction; Nausea is decreased [facility] Disposition: 11/23/17 00:41 Discharged to Home. Impression: Acute dental pain. - Condition is Stable. - Discharge Instructions: Dental Dry Socket. - Prescriptions for Zofran 4 mg Oral Tablet - take 1 tablet by ORAL route every 12 hours As needed; 20 tablet. - Medication Reconciliation Form, Thank You Letter, Antibiotic Education, Prescription Opioid Use form. - Follow up: Private Physician; When: Tomorrow; Reason: Re-evaluation by your physician. - Problem is new. - Symptoms have improved. - Notes: see your dentist later today per your appointment Signatures: Maria Eugenia Rosario, RN RN Nils Henry MD MD wa Reaves, Karey, RN RN kr2 Corrections: (The following items were deleted from the chart) 00:50 00:41 11/23/2017 00:41 Discharged to Home. Impression: Acute dental pain. Condition is kr2 Stable. Forms are Medication Reconciliation Form, Thank You Letter, Antibiotic Education, Prescription Opioid Use. Follow up: Private Physician; When: Tomorrow; Reason: Re-evaluation by your physician. Problem is new. Symptoms have improved. karma
--- NOTE | 2017-11-23 00:42 | ER ---
Nurse's Notes [facility] Name: Shruti Garcia Age: 21 yrs Sex: Female : 1995 Arrival Date: 11/22/2017 Time: 22:23 Bed 30 Private MD: NIDIA LAMA Diagnosis: Acute dental pain Presentation: 11/22 22:37 Presenting complaint: Patient states: that yesterday she had a wisdom tooth and molar fc removed from right upper and she is now having increasing pain. Done by Suzi Lin in [place]. Transition of care: patient was not received from another setting of care. Onset of symptoms was November 22, 2017. Risk Assessment: Do you want to hurt yourself or someone else? Patient reports no desire to harm self or others. Care prior to arrival: Medication(s) given: Motrin, 800 mg, at 2215. 22:37 Method Of Arrival: Ambulatory fc 22:37 Acuity: TIMOTEO 4 fc 23:28 Initial Sepsis Screen: Does the patient meet any 2 criteria? No. Patient's initial kr2 sepsis screen is negative. Does the patient have a suspected source of infection? Yes: Other: tooth extraction yesterday. 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 - Social history:: Smoking status: Patient uses tobacco products, smokes one-half pack cigarettes per day. - Ebola Screening: : Patient negative for fever greater than or equal to 101.5 degrees Fahrenheit, and additional compatible Ebola Virus Disease symptoms Patient denies exposure to infectious person Patient denies travel to an Ebola-affected area in the 21 days before illness onset. - Family history:: not pertinent. - Hospitalizations: : No recent hospitalization is reported. Screenin:49 Abuse screen: Denies threats or abuse. Denies injuries from another. Nutritional mg2 screening: No deficits noted. Tuberculosis screening: No symptoms or risk factors identified. Fall Risk None identified. Assessment: 23:25 General: Appears in no apparent distress. uncomfortable, well developed, Behavior is kr2 calm, cooperative, appropriate for age. Pain: Complains of pain in mouth and jaw Pain currently is 10 out of 10 on a pain scale. Quality of pain is described as aching, Is continuous, Alleviated by nothing. Aggravated by eating, drinking. Neuro: Level of Consciousness is awake, alert, obeys commands, Oriented to person, place, time, situation, Appropriate for age. Cardiovascular: Capillary refill < 3 seconds in bilateral fingers Patient's skin is warm and dry. Respiratory: Airway is patent Respiratory effort is even, unlabored, Respiratory pattern is regular, symmetrical. GI: Reports nausea. EENT: Poor dentition noted. [place] tooth extraction yesterday. Derm: Skin is intact, is healthy with good turgor. 23:25 Musculoskeletal: Swelling present in jaw. kr2 11/23 00:25 Reassessment: Patient appears in no apparent distress at this time. Patient and/or kr2 family updated on plan of care and expected duration. Pain level reassessed. Patient is alert, oriented x 3, equal unlabored respirations, skin warm/dry/pink. Patient states she does want to have Dr. Henry perform nerve block for management of pain. 00:40 Reassessment: Patient appears in no apparent distress at this time. Patient and/or kr2 family updated on plan of care and expected duration. Pain level reassessed. Patient is alert, oriented x 3, equal unlabored respirations, skin warm/dry/pink. Dr. Henry injected Bupivacaine orally at this time. Patient tolerated well. 00:48 Reassessment: Patient appears in no apparent distress at this time. Patient and/or kr2 family updated on plan of care and expected duration. Pain level reassessed. Patient is alert, oriented x 3, equal unlabored respirations, skin warm/dry/pink. Patient states she "feels much better and the pain is instantly better". Vital Signs: 11/22 22:43 BP 119 / 91; Pulse 86; Resp 20; Temp 98.0(O); Pulse Ox 100% on R/A; Weight 52.16 kg fc (R); Height 5 ft. 4 in. (162.56 cm) (R); Pain 02/01; 11/23 00:48 BP 124 / 90; Pulse 87; Resp 20; Pulse Ox 100% on R/A; kr2 11/22 22:43 Body Mass Index 19.74 (52.16 kg, 162.56 cm) ED Course: 11/22 22:23 Patient arrived in ED. es 22:37 NIDIA LAMA is Private Physician. 22:40 Triage completed. 22:43 Arm band placed on Patient placed in an exam room, on a stretcher. 22:56 Nils Henry MD is Attending Physician. ri 23:16 Nneka Corey, RN is Primary Nurse. kr2 23:28 Patient has correct armband on for positive identification. Bed in low position. Call kr2 light in reach. Side rails up X 1. Adult w/ patient. Pulse ox on. NIBP on. Door closed. Warm blanket given. Head of bed elevated. 11/23 00:49 No provider procedures requiring assistance completed. Patient did not have IV access kr2 during this emergency room visit. Administered Medications: 11/22 23:21 Drug: [place] 5 mg-325 mg 1 tabs Route: PO; kr2 11/23 00:25 Follow up: Response: No adverse reaction; Pain is decreased kr2 11/22 23:21 Drug: Zofran 4 mg Route: PO; kr2 11/23 00:25 Follow up: Response: No adverse reaction; Nausea is decreased kr2 Outcome: 00:41 Discharge ordered by . ri 00:49 Discharged to home ambulatory, with family. kr2 00:49 Condition: improved 00:49 Discharge instructions given to patient, family, Instructed on discharge instructions, follow up and referral plans. medication usage, Demonstrated understanding of instructions, follow-up care, medications, Prescriptions given X 1. 00:50 Patient left the ED. kr2 Signatures: Cassandra Delatorre Felicia RN MARTIN Nils Henry MD MD wa Reaves, Karey, RN RN kr2 Sp Bolden RN RN [place]
[2017-11-23 00:56] VITALS: TEMP 98; O2SAT 100
[2017-11-23 00:57] VITALS: BP 124/90
== END 2017-11-23 00:50 | disposition home or self-care (01) ==
LOC: ER 22:21
DX: K08.89 Other specified disorders of teeth and supporting structures (principal); F17.210 Nicotine dependence, cigarettes, uncomplicated; F41.9 Anxiety disorder, unspecified; Z88.3 Allergy status to other anti-infective agents; Z88.8 Allergy status to other drugs, medicaments and biological substances; Z98.818 Other dental procedure status
CPT/HCPCS: 99283

== ENCOUNTER 2017-11-29 11:21 | Emergency (ER) | payer OTHER, SELFPAY ==
--- OUTSIDE RECORDS SUMMARY | 2017-11-29 11:23 | XMS REPORT ---
:1995 Author Organization [facility] Address [address] Perez [address] [place] [id number] Care Team Providers Name Role Phone DR NIDIA LESTER Unavailable Unavailable Problems This patient has no known problems. Allergies, Adverse Reactions, Alerts This patient has no known allergies or adverse reactions. Medications This patient has no known medications. Encounters Start End Encounter Admission Attending Care Care Encounter Date/Time Date/Time Type Type Clinicians Facility Department ID 2017-08-31 2017-09-[address] [facility] [id number] 21:44:00 01:30:00 Results Test Description Test Time Test Comments Text Results Atomic Results Result Comments THYROID PANEL/SCREEN (TSH) 2017-08-31 22:45:00 Test Item Value Reference Range Comments TSH (test code=A57) 1.110 uIU/mL 0.358-3.740 [id number] 22:40:00 Test Item Value Reference Range Comments ACETAMINPH (test code=94M) <2.0 ug/mL 10.0-30.0 COMPREHENSIVE METABOLIC [id number] 22:40:00 Test Item Value Reference Range Comments [...] (test code=31A) 17 IU/L <=78 BRAIN NATRIURETIC [id number] 22:31:00 Test Item Value Reference Range Comments proBNP (test code=PBNP) 16 pg/mL 0-125 ALCOHOL BLOOD (ETOH)2017-08-31 22:30:00 Test Item Value Reference Range Comments ETOH (test code=HALC) ETHANOL The result is to be used only for medical purposes ALCOHOL (test code=56A) <10 mg/dL <=10 CARDIAC [id number] 22:30:00 Test Item Value Reference Range Comments TROPONIN I (test code=A84) <0.015 ng/mL 0.000-0.045 CKMB (test code=A49) 1.3 ng/mL <=3.6 CPK (test code=32A) 60 IU/L 26-192 [id number] 22:26:00 Test Item Value Reference Range Comments SALICYLATE (test code=94B) 2.9 mg/dL 2.8-20.0 AMYLASE AND [id number] 22:26:00 Test Item Value Reference Range Comments AMYLASE (test code=10A) 24 U/L 28-100 LIPASE (test code=60A) 97 IU/L 73-393 AMMONIA [id number] 22:25:00 Test Item Value Reference Range Comments AMMONIA (test code=54A) 16 umol/L 11-32 [id number] 22:25:00 Test Item Value Reference Range Comments MAGNESIUM (test code=48A) 2.2 mg/dL 1.8-2.4 DRUGS OF [id number] 22:17:00 Test Item Value Reference Range Comments [...] Barbiturates 200 ng/mL Opiates 2000 ng/mL SERUM [id number] 22:17:00 Test Item Value Reference Range Comments [...] MORPH (test code=RBCMOR) NORMAL PRO TIME AND [id number] 22:16:00 Test Item Value Reference Range Comments [...] or LMW Heparin. Order Code is ANTI-XA [id number] 22:09:00 Test Item Value Reference Range Comments [...]
[2017-11-29] MEDS ORDERED: ONDANSETRON 4 MG/2 ML VIAL ONE (12:20)
[2017-11-29] MEDS ORDERED: NA CHLORIDE 0.9% 1,000 ML ONE (12:20)
[2017-11-29 12:31] LABS: Absolute Lymphocytes (CBC) 1.7 K/uL (0.7-4.9); Absolute Monocytes 0.5 K/uL (0.1-1.3); Absolute Neutrophil 5.2 K/uL (1.8-8.0); Basophils % 0.4 % (0-1.3); Eosinophils % 0.6 % (0-4.4); Hematocrit 36.3 % (36.0-45.0); Lymphocytes % 22.9 % (15.3-44.8); MCH 31.2 pg (27.0-35.0); MCV 89.6 fL (80-100); MPV 9.3 fL (7.6-11.3); Monocytes % 6.5 % (3.3-12.3); RBC Red Blood Cell Count 4.05 M/uL (3.86-4.86)
[2017-11-29 12:42] LABS: ALT/SGPT 10 U/L (12-78); AST/SGOT 10 U/L (15-37); Alkaline Phosphatase 72 U/L (45-117); BUN Blood Urea Nitrogen 18 mg/dL (7-18); Bicarbonate 27 mmol/L (21-32); Bilirubin Direct 0.1 mg/dL (0-0.2); Bilirubin Total 0.3 mg/dL (0.2-1.0); Glucose Level 78 mg/dL (74-106); Lipase 263 U/L (73-393); Potassium 3.4 mmol/L (3.5-5.1); Sodium Level 145 mmol/L (136-145)
[2017-11-29 13:31] LABS: Urine Blood NEGATIVE (NEG); Urine Glucose NEGATIVE (NEG); Urine Protein NEGATIVE (NEG); Urine Specific Gravity 1.015 (1.005-1.030); Urine pH 6.5 (5.0-7.0)
[2017-11-29 13:36] LABS: Urine Bacteria >50 /HPF (<20); Urine Culture Reflex Order REFLEXED; Urine RBC <5 /HPF (NONE SEEN)
--- NOTE | 2017-11-29 14:05 | EDPHYS ---
Physician Documentation [facility] Name: Shruti Garcia Age: 22 yrs Sex: Female : 1995 Arrival Date: 11/29/2017 Time: 11:26 Bed 16 Private MD: NIDIA LAMA ED Physician Deniz Guo HPI: 11/29 12:49 This 22 yrs old Female presents to ER via Ambulatory with complaints of rn Anxiety, Nausea/Vomiting/Diarrhea. 12:49 The patient presents to the emergency department with nausea, vomiting, diarrhea. rn Onset: The symptoms/episode began/occurred 3 day(s) ago. Possible causes: unknown. The symptoms are aggravated by nothing. The symptoms are alleviated by nothing. Severity of symptoms: At their worst the symptoms were mild in the emergency department the symptoms are unchanged. The patient has experienced similar episodes in the past. Reports nausea/vomiting/diarrhea, no abd pain, here more for anxiety, states ran out of anxiety medication recently, and ran out of insurance. + chills. 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 - Social history:: Smoking status: Patient/guardian denies using tobacco. - Ebola Screening: : No symptoms or risks identified at this time. - Family history:: not pertinent. - Hospitalizations: : No recent hospitalization is reported. ROS: 12:49 Constitutional: Negative for weight loss, Eyes: Negative for injury, pain, redness, and employee benefits attorney, Neck: Negative for injury, pain, and swelling, Cardiovascular: Negative for chest pain, palpitations, and edema, Respiratory: Negative for shortness of breath, cough, wheezing, and pleuritic chest pain, Abdomen/GI: Negative for abdominal pain, constipation, MS/Extremity: Negative for injury and deformity, Skin: Negative for injury, rash, and discoloration, Neuro: Negative for headache, weakness, and seizure. Exam: 12:49 Constitutional: This is a well developed, well nourished patient who is awake, alert, rn and in no acute distress. Head/Face: Normocephalic, atraumatic. Eyes: Pupils equal round and reactive to light, extra-ocular motions intact. Lids and lashes normal. Conjunctiva and sclera are non-icteric and not injected. Cornea within normal limits. Periorbital areas with no swelling, redness, or edema. ENT: MMM Cardiovascular: tachycardic, regular, no murmur Respiratory: Lungs have equal breath sounds bilaterally, clear to auscultation and percussion. No rales, rhonchi or wheezes noted. No increased work of breathing, no retractions or nasal flaring. Abdomen/GI: Soft, non-tender, with normal bowel sounds. No distension or tympany. No guarding or rebound. No evidence of tenderness throughout. MS/ Extremity: Pulses equal, no cyanosis. Neurovascular intact. Full, normal range of motion. Equal circumference. Neuro: Awake and alert, GCS 15, oriented to person, place, time, and situation. Cranial nerves II-XII grossly intact. Motor strength 5/5 in all extremities. Sensory grossly intact. Vital Signs: 11:37 BP 133 / 99; Pulse 118; Resp 16; Temp 98.3; Pulse Ox 100% on R/A; Weight 49.9 kg; hb Height 5 ft. 3 in. (160.02 cm); Pain 0/10; 11:37 Body Mass Index 19.49 (49.90 kg, 160.02 cm) hb MDM: 11:41 Patient medically screened. rn 14:02 Differential diagnosis: Nonspecific abd pain, gastritis, viral gastroenteritis, rn gastroenteritis. Data reviewed: vital signs, nurses notes, lab test result(s), and as a result, I will discharge patient. Counseling: I had a detailed discussion with the patient and/or guardian regarding: the historical points, exam findings, and any diagnostic results supporting the discharge/admit diagnosis, lab results, the need for outpatient follow up, to return to the emergency department if symptoms worsen or persist or if there are any questions or concerns that arise at home. Response to treatment: the patient's symptoms have markedly improved after treatment, and as a result, I will discharge patient. Special discussion: I discussed with the patient/guardian in detail that at this point there is no indication for admission to the hospital. It is understood, however, that if the symptoms persist or worsen the patient needs to return immediately for re-evaluation. 14:02 ED course: Pt states has a ride home, given PO valium for her anxiety, none prescribed, rn recommend pcp f/u.. 11/29 11:55 Order name: Basic Metabolic Panel rn 11/29 11:55 Order name: CBC with Diff rn 11/29 11:55 Order name: Hepatic Function rn 11/29 11:55 Order name: Lipase rn 11/29 11:55 Order name: Urine Microscopic Only rn 11/29 11:55 Order name: Flu rn 11/29 12:17 Order name: Urine Dipstick--Ancillary (enter results) eb 11/29 12:27 Order name: Influenza Screen (A ; Complete Time: 13:18 EDMS 11/29 12:34 Order name: CBC with Automated Diff; Complete Time: 13:18 EDMS 11/29 12:42 Order name: Basic Metabolic Panel; Complete Time: 13:18 EDMS 11/29 12:42 Order name: Liver (Hepatic) Function; Complete Time: 13:18 EDMS 11/29 12:42 Order name: Lipase; Complete Time: 13:18 EDMS 11/29 13:31 Order name: Urine Dipstick-Ancillary; Complete Time: 13:44 EDMS 11/29 13:36 Order name: Urine Microscopic Only; Complete Time: 13:44 EDMS 11/29 11:55 Order name: IV Saline Lock; Complete Time: 12:18 rn 11/29 11:55 Order name: Labs collected and sent; Complete Time: 12:18 rn 11/29 11:55 Order name: Urine Dipstick-Ancillary (obtain specimen); Complete Time: 12:18 rn Administered Medications: 12:20 Drug: NS 0.9% 1000 ml Route: IV; Rate: 1000 ml; Site: left antecubital; rb1 13:34 Follow up: IV Status: Completed infusion rb1 12:20 Drug: Zofran 4 mg Route: IVP; Site: left antecubital; rb1 12:35 Follow up: Response: No adverse reaction; Nausea is decreased rb1 14:33 Drug: Valium 5 mg Route: PO; rb1 14:33 Follow up: Response: Medication administered at discharge.; Significant other is at rb1 bedside to drive the pt. home. Disposition: 11/29/17 14:05 Discharged to Home. Impression: Anxiety disorder, unspecified, Viral gastroenteritis. - Condition is Stable. - Discharge Instructions: Generalized Anxiety Disorder. - Prescriptions for Zofran ODT 4 mg Oral tablet,disintegrating - place 1 tablet by TRANSLINGUAL route every 8-10 hours As needed; 20 tablet. Macrobid 100 mg Oral Capsule - take 1 capsule by ORAL route every 12 hours for 7 days; 14 capsule. - Medication Reconciliation Form, Thank You Letter, Antibiotic Education, Prescription Opioid Use form. - Follow up: Private Physician; When: As needed; Reason: Recheck today's complaints, Re-evaluation by your physician. - Problem is new. - Symptoms have improved. Signatures: Dispatcher [employer] EDMS Deniz Guo MD MD rn Barber, Rebecca, RN RN rb1 Divine Olsen RN RN Corrections: (The following items were deleted from the chart) 14:34 14:05 11/29/2017 14:05 Discharged to Home. Impression: Anxiety disorder, unspecified; rb1 Viral gastroenteritis. Condition is Stable. Forms are Medication Reconciliation Form, Thank You Letter, Antibiotic Education, Prescription Opioid Use. Follow up: Private Physician; When: As needed; Reason: Recheck today's complaints, Re-evaluation by your physician. Problem is new. Symptoms have improved. rn
--- NOTE | 2017-11-29 14:05 | ER ---
Nurse's Notes [facility] Name: Shruti Garcia Age: 22 yrs Sex: Female : 1995 Arrival Date: 11/29/2017 Time: 11:26 Bed 16 Private MD: NIDIA LAMA Diagnosis: Anxiety disorder, unspecified;Viral gastroenteritis Presentation: 11/29 11:34 Presenting complaint: Patient states: N/V/D, lower abdominal pain, and fever x 3 days. hb Not tolerating liquids. Also reports anxiety r/t recent of daughter. TMAX 103. Transition of care: patient was not received from another setting of care. Onset of symptoms was November 26, 2017. Risk Assessment: Do you want to hurt yourself or someone else? Patient reports no desire to harm self or others. Initial Sepsis Screen:. Care prior to arrival: Medication(s) given: Tylenol, 1000 today. 11:34 Method Of Arrival: Ambulatory hb 11:34 Acuity: TIMOTEO 3 hb 11:45 Initial Sepsis Screen: Does the patient meet any 2 criteria? No. Patient's initial rb1 sepsis screen is negative. Does the patient have a suspected source of infection? No. Patient's initial sepsis screen is negative. 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 - Social history:: Smoking status: Patient/guardian denies using tobacco. - Ebola Screening: : No symptoms or risks identified at this time. - Family history:: not pertinent. - Hospitalizations: : No recent hospitalization is reported. Screenin:45 Abuse screen: Denies threats or abuse. rb1 11:45 Nutritional screening: No deficits noted. Tuberculosis screening: No symptoms or risk rb1 factors identified. Fall Risk None identified. Assessment: 11:45 General: Appears uncomfortable, slender, Behavior is cooperative, anxious, Reports rb1 fever for 2-3 days. Pain: Denies pain. Neuro: Level of Consciousness is awake, alert, obeys commands, Oriented to person, place, time, situation. Cardiovascular: Capillary refill < 3 seconds is brisk in bilateral fingers. Respiratory: Airway is patent Respiratory effort is even, unlabored, Respiratory pattern is regular, symmetrical. GI: Reports diarrhea, nausea, vomiting, since x 3 days. : No signs and/or symptoms were reported regarding the genitourinary system. Derm: Skin is pink, warm \T\ dry. Vital Signs: 11:37 BP 133 / 99; Pulse 118; Resp 16; Temp 98.3; Pulse Ox 100% on R/A; Weight 49.9 kg; hb Height 5 ft. 3 in. (160.02 cm); Pain 0/10; 11:37 Body Mass Index 19.49 (49.90 kg, 160.02 cm) hb ED Course: 11:26 Patient arrived in ED. sb2 11:27 NIDIA LAMA is Private Physician. sb2 11:36 Triage completed. hb 11:37 Arm band placed on left wrist. hb 11:41 Deniz Guo MD is Attending Physician. rn 11:45 Patient has correct armband on for positive identification. Bed in low position. Call rb1 light in reach. Side rails up X 1. Pulse ox on. NIBP on. 12:06 Initial lab(s) drawn, by me, sent to lab. Urine collected: clean catch specimen, dh3 cloudy. Inserted saline lock: 22 gauge in left antecubital area, using aseptic technique. Blood collected. 12:11 Lesa Shelby, RN is Primary Nurse. rb1 12:16 Flu and/or RSV swab sent to lab. dh3 12:26 Flu Sent. rb1 14:34 No provider procedures requiring assistance completed. IV discontinued, intact, rb1 bleeding controlled, No redness/swelling at site. Pressure dressing applied. Administered Medications: 12:20 Drug: NS 0.9% 1000 ml Route: IV; Rate: 1000 ml; Site: left antecubital; rb1 13:34 Follow up: IV Status: Completed infusion rb1 12:20 Drug: Zofran 4 mg Route: IVP; Site: left antecubital; rb1 12:35 Follow up: Response: No adverse reaction; Nausea is decreased rb1 14:33 Drug: Valium 5 mg Route: PO; rb1 14:33 Follow up: Response: Medication administered at discharge.; Significant other is at rb1 bedside to drive the pt. home. Intake: Outcome: 14:05 Discharge ordered by . rn 14:34 Patient left the ED. rb1 14:34 Discharged to home ambulatory, with significant other. rb1 14:34 Condition: stable 14:34 Discharge instructions given to patient, Instructed on discharge instructions, follow up and referral plans. medication usage, Demonstrated understanding of instructions, follow-up care, medications, Prescriptions given X 2. Addendum: 12/02/2017 07:20 Addendum: Culture Results: Positive urine culture. No further action required. Bacteria s s sensitive to prescribed antibiotic. Signatures: Deniz Guo MD MD rn Smirch, Shelby, RN RN Lesa Shelby RN RN Divine Dalton RN RN Fabienne Kelly 3 Makayla Novak sb2 Corrections: (The following items were deleted from the chart) 11/29 11:37 11:34 Presenting complaint: Patient states: N/V/D and fever x 3 days. Also reports hb anxiety r/t recent of daughter. TMAX 103 hb
[2017-11-29] MEDS ORDERED: DIAZEPAM 5 MG TABLET ONE (14:33)
[2017-11-29 14:38] VITALS: BP 133/99; TEMP 98.3; O2SAT 100
[2017-11-29 15:25] LABS: Specific Gravity 1.015 (1.005-1.030)
== END 2017-11-29 14:34 | disposition home or self-care (01) ==
LOC: ER 11:21
DX: A08.4 Viral intestinal infection, unspecified (principal); Z88.3 Allergy status to other anti-infective agents; Z88.8 Allergy status to other drugs, medicaments and biological substances
CPT/HCPCS: 36415; 80048; 80076; 81003; 81015; 81025; 83690; 85025; 87077; 87086; 87088; 87186; 87804; 96361; 96374; 99284; J2405; J7030

== ENCOUNTER 2018-05-07 12:33 | Emergency (ER) | payer SELFPAY ==
--- OUTSIDE RECORDS SUMMARY | 2018-05-07 12:36 | XMS REPORT ---
:1995 [facility] Address [address] [place] [address] [address]. [address] [place] [address] Care Team Providers Name Role Phone DR NIDIA LESTER Unavailable Unavailable Problems This patient has no known problems. Allergies, Adverse Reactions, Alerts This patient has no known allergies or adverse reactions. Medications This patient has no known medications. Encounters Start End Encounter Admission Attending Care Care Encounter Date/Time Date/Time Type Type Clinicians Facility Department ID 2017-08-31 2017-09-01 Emergency E NIDIA LESTER [facility] [id number] 21:44:00 01:30:00 Results Test Description Test Time Test Comments Text Results Atomic Results Result Comments THYROID PANEL/SCREEN (TSH) 2017-08-31 22:45:00 Test Item Value Reference Range Comments TSH (test code=A57) 1.110 uIU/mL 0.358-3.740 [id number] 22:40:00 Test Item Value Reference Range Comments ACETAMINPH (test code=94M) <2.0 ug/mL 10.0-30.0 COMPREHENSIVE METABOLIC [id number] 22:40:00 Test Item Value Reference Range Comments [...] (test code=31A) 17 IU/L <=78 BRAIN NATRIURETIC [id number] 22:31:00 Test Item Value Reference Range Comments proBNP (test code=PBNP) 16 pg/mL 0-125 ALCOHOL BLOOD (ETOH)2017-08-31 22:30:00 Test Item Value Reference Range Comments ETOH (test code=HALC) ETHANOL The result is to be used only for medical purposes ALCOHOL (test code=56A) <10 mg/dL <=10 CARDIAC [id number] 22:30:00 Test Item Value Reference Range Comments TROPONIN I (test code=A84) <0.015 ng/mL 0.000-0.045 CKMB (test code=A49) 1.3 ng/mL <=3.6 CPK (test code=32A) 60 IU/L 26-192 [id number] 22:26:00 Test Item Value Reference Range Comments SALICYLATE (test code=94B) 2.9 mg/dL 2.8-20.0 AMYLASE AND [id number] 22:26:00 Test Item Value Reference Range Comments AMYLASE (test code=10A) 24 U/L 28-100 LIPASE (test code=60A) 97 IU/L 73-393 AMMONIA [id number] 22:25:00 Test Item Value Reference Range Comments AMMONIA (test code=54A) 16 umol/L 11-32 [id number] 22:25:00 Test Item Value Reference Range Comments MAGNESIUM (test code=48A) 2.2 mg/dL 1.8-2.4 DRUGS OF [id number] 22:17:00 Test Item Value Reference Range Comments [...] Barbiturates 200 ng/mL Opiates 2000 ng/mL SERUM [id number] 22:17:00 Test Item Value Reference Range Comments [...] MORPH (test code=RBCMOR) NORMAL PRO TIME AND [id number] 22:16:00 Test Item Value Reference Range Comments [...] or LMW Heparin. Order Code is ANTI-XA [id number] 22:09:00 Test Item Value Reference Range Comments [...]
[2018-05-07 13:25] LABS: Absolute Lymphocytes (CBC) 1.7 K/uL (0.7-4.9); Absolute Monocytes 0.2 K/uL (0.1-1.3); Absolute Neutrophil 2.1 K/uL (1.8-8.0); Basophils % 0.4 % (0-1.3); Eosinophils % 1.1 % (0-4.4); Hematocrit 39.4 % (36.0-45.0); Lymphocytes % 41.6 % (15.3-44.8); MPV 9.4 fL (7.6-11.3); Monocytes % 4.4 % (3.3-12.3); RBC Red Blood Cell Count 4.45 M/uL (3.86-4.86)
[2018-05-07 13:54] LABS: ALT/SGPT 13 U/L (12-78); AST/SGOT 12 U/L (15-37); Albumin 4.4 g/dL (3.4-5.0); Alkaline Phosphatase 68 U/L (45-117); BUN Blood Urea Nitrogen 10 mg/dL (7-18); Bicarbonate 26 mmol/L (21-32); Bilirubin Direct < 0.1 mg/dL (0-0.2); Bilirubin Total 0.3 mg/dL (0.2-1.0); Glucose Level 98 mg/dL (74-106); Potassium 3.6 mmol/L (3.5-5.1); Protein, Total 8.5 g/dL (6.4-8.2); Sodium Level 145 mmol/L (136-145)
[2018-05-07] MEDS ORDERED: clonazePAM 0.5 MG TAB ONE ×2 (14:47→19:20)
[2018-05-07] MEDS ORDERED: ACETAMINOPHEN 325 MG TABLET ONE (14:47)
[2018-05-07 16:19] LABS: Urine Bacteria LOADED /HPF (<20); Urine Culture Reflex Order REFLEXED; Urine RBC NONE SEEN /HPF (NONE SEEN)
[2018-05-07 16:24] LABS: Barbiturates NEGATIVE (NEGATIVE); Benzodiazepines POSITIVE (NEGATIVE); Cocaine NEGATIVE (NEGATIVE); METHAMPHETAM NEGATIVE (NEGATIVE); Methadone NEGATIVE (NEGATIVE); Opiates NEGATIVE (NEGATIVE); Phencyclidine NEGATIVE (NEGATIVE); THC Cannibis NEGATIVE (NEGATIVE)
--- NOTE | 2018-05-07 16:25 | EKG ---
Test Date: 2018-05-07 Test Time: 13:17:48 Making Machine Operator: MERARY MEASUREMENT RESULTS: Intervals: Rate: 87 VT: 126 QRSD: 76 QT: 372 QTc: 447 [place]: P: 68 VT: 126 QRS: 64 T: 55 INTERPRETIVE STATEMENTS: Normal sinus rhythm Normal ECG Compared to ECG 05/18/2014 12:58:06 No significant changes Electronically Signed On 05-07-18 16:24:55 MODELING ANALYST by Timothy Mistry
[2018-05-07] MEDS ORDERED: LORazepam 2 MG/ML VIAL ONE (17:11)
[2018-05-07 17:47] LABS: Urine Blood NEGATIVE (NEG); Urine Glucose NEGATIVE (NEG); Urine Protein NEGATIVE (NEG); Urine Specific Gravity 1.015 (1.005-1.030); Urine pH 7.5 (5.0-7.0)
--- NOTE | 2018-05-07 17:58 | ER ---
Nurse's Notes [facility] Name: Shruti Garcia Age: 22 yrs Sex: Female : 1995 Arrival Date: 05/07/2018 Time: 12:34 Bed 26 Private MD: NIDIA LAMA Diagnosis: Major depressive disorder, recurrent;Suicidal ideations Presentation: 05/07 12:44 Presenting complaint: Patient states: "I'm having suicidal thoughts and really bad aj1 anxiety" Patient states that she has been having these feelings since her daughter last May. Patient was last treated in an inpatient psychiatric facility 7 months ago. Patient denies a plan at this time. Transition of care: patient was not received from another setting of care. Onset of symptoms was May 04, 2018. Risk Assessment: Do you want to hurt yourself or someone else? Patient reports desire/thoughts of hurting themselves or someone else. Provider notified. Initial Sepsis Screen: Does the patient meet any 2 criteria? HR > 90 bpm. No. Patient's initial sepsis screen is negative. Does the patient have a suspected source of infection? No. Patient's initial sepsis screen is negative. Care prior to arrival: None. 12:44 Method Of Arrival: Ambulatory aj 12:44 Acuity: TIMOTEO 2 aj1 Triage Assessment: 12:48 General: Appears uncomfortable, Behavior is cooperative, anxious, crying. Pain: Denies aj1 pain. Neuro: Level of Consciousness is awake, alert, obeys commands. Cardiovascular: Patient's skin is warm and dry. Respiratory: Airway is patent Respiratory effort is even, unlabored, Respiratory pattern is regular, symmetrical. QUALITY CONTROL ASSISTANT: 12:48 LMP 04/30/2018 aj1 Historical: - Allergies: 12:48 Clindamycin; aj1 12:48 Neurontin; aj1 - Home Meds: 12:48 Klonopin Oral [Active]; Lexapro Oral [Active]; aj1 - PMHx: 12:48 Anxiety; PREECLAMPSIA; Depression; overdose; aj1 - Immunization history:: Flu vaccine is not up to date. - Social history:: Smoking status: Patient uses tobacco products, smokes one pack cigarettes per day. - Ebola Screening: : Patient denies travel to an Ebola-affected area in the 21 days before illness onset. Screenin:49 Abuse screen: Denies threats or abuse. Nutritional screening: No deficits noted. tw2 Tuberculosis screening: No symptoms or risk factors identified. Fall Risk None identified. Assessment: 12:52 General: Appears in no apparent distress. slender, Behavior is calm, cooperative, tw2 appropriate for age. Pain: Denies pain. Neuro: Level of Consciousness is awake, alert, obeys commands, Oriented to person, place, time, situation. Cardiovascular: Heart tones S1 S2 Patient's skin is warm and dry. Respiratory: Airway is patent Respiratory effort is even, unlabored, Respiratory pattern is regular, symmetrical, Breath sounds are clear bilaterally. GI: No signs and/or symptoms were reported involving the gastrointestinal system. Abdomen is flat, Bowel sounds present X 4 quads. : No signs and/or symptoms were reported regarding the genitourinary system. EENT: No signs and/or symptoms were reported regarding the EENT system. Derm: No signs and/or symptoms reported regarding the dermatologic system. Musculoskeletal: Circulation, motion, and sensation intact. Range of motion: intact in all extremities. 12:55 Reassessment: Dr. Potts at bedside. tw2 13:52 Reassessment: Patient appears in no apparent distress at this time. No changes from tw2 previously documented assessment. Patient and/or family updated on plan of care and expected duration. Pain level reassessed. Patient is alert, oriented x 3, equal unlabored respirations, skin warm/dry/pink. 14:52 Reassessment: Patient appears in no apparent distress at this time. No changes from tw2 previously documented assessment. Patient and/or family updated on plan of care and expected duration. Pain level reassessed. Patient is alert, oriented x 3, equal unlabored respirations, skin warm/dry/pink. 15:52 Reassessment: Patient appears in no apparent distress at this time. No changes from tw2 previously documented assessment. Patient and/or family updated on plan of care and expected duration. Pain level reassessed. Patient is alert, oriented x 3, equal unlabored respirations, skin warm/dry/pink. 17:00 Reassessment: pt had a male visitor after he left pt became upset started crying, tw2 states "he is my boyfriend and we are just not used to not being together", provider notified. 18:00 Reassessment: Patient appears in no apparent distress at this time. No changes from tw2 previously documented assessment. Patient and/or family updated on plan of care and expected duration. Pain level reassessed. Patient is alert, oriented x 3, equal unlabored respirations, skin warm/dry/pink. 19:00 Reassessment: Patient appears in no apparent distress at this time. No changes from tw2 previously documented assessment. Patient and/or family updated on plan of care and expected duration. Pain level reassessed. Patient is alert, oriented x 3, equal unlabored respirations, skin warm/dry/pink. 20:17 Reassessment: Patient appears in no apparent distress at this time. No changes from la1 previously documented assessment. Patient and/or family updated on plan of care and expected duration. Pain level reassessed. Patient is alert, oriented x 3, equal unlabored respirations, skin warm/dry/pink. Psych: 12:49 Subjective: Patient's mood is sad, Delusions are denied, Hallucinations are denied aj1 Having thoughts of suicide. Objective: Patient is cooperative, Speech is normal, Affect is flat. Suicide Risk Assessment: Sad Person Scale: Sex of patient: Female: Score 0 points. Age of patient: Score 1 point if patient 15-34. Depression: Score 1 point if signs of depression are present. Previous Attempt: Score 1 point if patient has previously attempted suicide. Substance Abuse: Score 1 point if patient abuses alcohol or drugs. Rational Thinking: Score 1 point if patient is lacking rational thinking. Social Support: Score 0 if social support is present/available. Organized Plan: Score 0 if patient did not have an organized plan in place. Relationship: Score 1 point if patient is , , , or for a single male Chronic Sickness: Score 0 point if patient does not have a chronic illness, debilitating, or severe disorder. TOTAL POINTS: If total points are 3-4, proposed clinical action is close follow-up/consider hospitalization. opitaes. 12:52 Interventions: Removed personal items and placed in bag. Patient placed in hospital tw2 gown. Safety Checks: Personal items have been removed. Door is open. Commitment: Patient will be a voluntary commitment. Vital Signs: 12:48 BP 120 / 80; Pulse 113; Resp 16; Temp 98.9(O); Pulse Ox 100% on R/A; Weight 49.9 kg aj1 (R); Height 5 ft. 3 in. (160.02 cm) (R); Pain 0/10; 16:45 BP 121 / 88; Pulse 88; Resp 18; Pulse Ox 99% on R/A; dh3 20:14 BP 104 / 74; Pulse 96; Resp 18; Temp 98.8(O); Pulse Ox 100% on R/A; jb5 12:48 Body Mass Index 19.49 (49.90 kg, 160.02 cm) aj1 ED Course: 12:34 Patient arrived in ED. sb2 12:34 NIDIA LAMA is Private Physician. sb2 12:46 Triage completed. aj1 12:48 Arm band placed on Patient placed in an exam room. aj1 12:48 Safety checks: Items removed: yes. Door open/sign placed on door: yes. Family/friend dh3 present: yes. Family/friends encouraged to stay with patient. Sitter present: Yes. 12:52 Placed in gown. Bed in low position. Call light in reach. Adult w/ patient. tw2 12:58 Safety Checks: Personal items have been removed. The door is open or patient has been tw2 placed in a hallway bed/chair. A family member and/or friend is present and encouraged to stay. Sitter present at this time. sitter to remain present throughout shift. 13:00 Safety checks: Items removed: yes. Door open/sign placed on door: yes. Family/friend dh3 present: yes. Family/friends encouraged to stay with patient. Sitter present: Yes. 13:02 Franklin Potts MD is Attending Physician. gs 13:10 Iman Dougherty RN is Primary Nurse. tw2 13:15 Safety checks: Items removed: yes. Door open/sign placed on door: yes. Family/friend dh3 present: yes. Family/friends encouraged to stay with patient. Sitter present: Yes. 13:20 Inserted saline lock: 22 gauge in left antecubital area, using aseptic technique. Blood la1 collected. 13:21 EKG done, by telemetry technician. la1 13:30 Safety checks: Items removed: yes. Door open/sign placed on door: yes. Family/friend dh3 present: yes. Family/friends encouraged to stay with patient. Sitter present: Yes. 13:45 Safety checks: Items removed: yes. Door open/sign placed on door: yes. Family/friend dh3 present: yes. Family/friends encouraged to stay with patient. Sitter present: Yes. 13:50 No provider procedures requiring assistance completed. tw2 14:00 Safety checks: Items removed: yes. Door open/sign placed on door: yes. Family/friend dh3 present: yes. Family/friends encouraged to stay with patient. Sitter present: Yes. 14:15 Safety checks: Items removed: yes. Door open/sign placed on door: yes. Family/friend dh3 present: yes. Family/friends encouraged to stay with patient. Sitter present: Yes. 14:30 Safety checks: Items removed: yes. Door open/sign placed on door: yes. Family/friend dh3 present: yes. Family/friends encouraged to stay with patient. Sitter present: Yes. 14:45 Safety checks: Items removed: yes. Door open/sign placed on door: yes. Family/friend dh3 present: no. Sitter present: Yes. 15:00 Safety checks: Items removed: yes. Door open/sign placed on door: yes. Family/friend dh3 present: no. Sitter present: Yes. 15:15 Safety checks: Items removed: yes. Door open/sign placed on door: yes. Family/friend dh3 present: no. Sitter present: Yes. 15:30 Safety checks: Items removed: yes. Door open/sign placed on door: yes. Family/friend dh3 present: no. Sitter present: Yes. 15:45 Safety checks: Items removed: yes. Door open/sign placed on door: yes. Family/friend dh3 present: no. Sitter present: Yes. 16:00 Safety checks: Items removed: yes. Door open/sign placed on door: yes. Family/friend dh3 present: yes. Family/friends encouraged to stay with patient. Sitter present: Yes. 16:15 Safety checks: Items removed: yes. Door open/sign placed on door: yes. Family/friend dh3 present: yes. Family/friends encouraged to stay with patient. Sitter present: Yes. 16:30 Safety checks: Items removed: yes. Door open/sign placed on door: yes. Family/friend dh3 present: yes. Family/friends encouraged to stay with patient. Sitter present: Yes. 16:45 Safety checks: Items removed: yes. Door open/sign placed on door: yes. Family/friend dh3 present: yes. Family/friends encouraged to stay with patient. Sitter present: Yes. 17:00 Safety checks: Items removed: yes. Door open/sign placed on door: yes. Family/friend dh3 present: no. Sitter present: Yes. 17:10 Safety Checks: Personal items have been removed. The door is open or patient has been tw2 placed in a hallway bed/chair. There are no family/friend visitors at this time Sitter present at this time. 17:15 Safety checks: Items removed: yes. Door open/sign placed on door: yes. Family/friend dh3 present: no. Sitter present: Yes. 17:30 Safety checks: Items removed: yes. Door open/sign placed on door: yes. Family/friend dh3 present: no. Sitter present: Yes. 17:45 Safety checks: Items removed: yes. Door open/sign placed on door: yes. Family/friend dh3 present: no. Sitter present: Yes. 18:00 Safety checks: Items removed: yes. Door open/sign placed on door: yes. Family/friend dh3 present: yes. Family/friends encouraged to stay with patient. Sitter present: Yes. 18:15 Safety checks: Items removed: yes. Door open/sign placed on door: yes. Family/friend dh3 present: yes. Family/friends encouraged to stay with patient. Sitter present: Yes. 18:30 Safety checks: Items removed: yes. Door open/sign placed on door: yes. Family/friend dh3 present: no. Sitter present: Yes. 18:45 Safety checks: Items removed: yes. Door open/sign placed on door: yes. Family/friend dh3 present: no. Sitter present: Yes. 19:00 Safety checks: Items removed: yes. Door open/sign placed on door: yes. Family/friend dh3 present: no. Sitter present: Yes. 19:00 Report given to MARTIN Diana. tw2 20:17 IV discontinued, intact, bleeding controlled, No redness/swelling at site. Pressure la1 dressing applied. Administered Medications: 14:40 Drug: clonazePAM 1 mg Route: PO; tw2 15:20 Follow up: Response: No adverse reaction; Marked relief of symptoms tw2 14:40 Drug: Tylenol 650 mg Route: PO; tw2 17:25 Follow up: Response: No adverse reaction tw2 17:04 Drug: Ativan 1 mg Route: IVP; Site: left antecubital; tw2 17:30 Follow up: Response: No adverse reaction; No change in condition tw2 19:13 Drug: KLONopin 1 mg Route: PO; la1 20:17 Follow up: Response: No adverse reaction la1 Outcome: 17:57 ER care complete, transfer ordered by . 20:18 Patient left the ED. la1 Addendum: 05/10/2018 07:45 Addendum: Culture Results: Positive urine culture. Phone call Attempt #1 faxed urine s s culture report to [address] Signatures: Sanjuanita Win RN RN aj1 Marylou Stockton RN MARTIN ss Pasquale Perkins RN RN la1 Iman Dougherty RN RN tw2 Preethi Mccloud Fabienne Rivero [facility] Franklin Potts MD MD gs [place], Sheri 2 Corrections: (The following items were deleted from the chart) 05/07 16:58 16:56 Safety checks: Items removed: yes. Door open/sign placed on door: yes. [facility] Family/friend present: yes. Family/friends encouraged to stay with patient. Sitter present: Yes. [facility] 18:34 18:24 Safety checks: [place] [id number]
--- NOTE | 2018-05-07 17:58 | EDPHYS ---
Physician Documentation [facility] Name: Shruti Garcia Age: 22 yrs Sex: Female : 1995 Arrival Date: 05/07/2018 Time: 12:34 Bed 26 Private MD: NIDIA LAMA ED Physician Franklin Potts HPI: 05/07 15:39 This 22 yrs old Female presents to ER via Ambulatory with complaints of gs Suicidal Ideation, Anxiety. 15:39 The patient presents to the emergency department with depression, over a , a gs history of substance abuse, suicide ideation. Onset: The symptoms/episode began/occurred 1 week(s) ago, and became persistent. Associated signs and symptoms: Pertinent negatives: chest pain, delusions, hallucinations. Severity of symptoms: At their worst the symptoms were severe in the emergency department the symptoms are unchanged. The patient has experienced similar episodes in the past, a few times. 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 - Social history:: Smoking status: Patient uses tobacco products, smokes one pack cigarettes per day. - Ebola Screening: : Patient denies travel to an Ebola-affected area in the 21 days before illness onset. ROS: 15:39 All other systems are negative. gs Exam: 15:39 Head/Face: Normocephalic, atraumatic. Eyes: Pupils equal round and reactive to light, gs extra-ocular motions intact. Lids and lashes normal. Conjunctiva and sclera are non-icteric and not injected. Cornea within normal limits. Periorbital areas with no swelling, redness, or edema. ENT: Nares patent. No nasal discharge, no septal abnormalities noted. Tympanic membranes are normal and external auditory canals are clear. Oropharynx with no redness, swelling, or masses, exudates, or evidence of obstruction, uvula midline. Mucous membranes moist. Neck: Trachea midline, no thyromegaly or masses palpated, and no cervical lymphadenopathy. Supple, full range of motion without nuchal rigidity, or vertebral point tenderness. No Meningismus. Chest/axilla: Normal chest wall appearance and motion. Nontender with no deformity. No lesions are appreciated. Respiratory: Lungs have equal breath sounds bilaterally, clear to auscultation and percussion. No rales, rhonchi or wheezes noted. No increased work of breathing, no retractions or nasal flaring. Abdomen/GI: Soft, non-tender, with normal bowel sounds. No distension or tympany. No guarding or rebound. No evidence of tenderness throughout. Back: No spinal tenderness. No costovertebral tenderness. Full range of motion. Skin: Warm, dry with normal turgor. Normal color with no rashes, no lesions, and no evidence of cellulitis. MS/ Extremity: Pulses equal, no cyanosis. Neurovascular intact. Full, normal range of motion. 15:39 Neuro: Awake and alert, GCS 15, oriented to person, place, time, and situation. Cranial nerves II-XII grossly intact. Motor strength 5/5 in all extremities. Sensory grossly intact. Cerebellar exam normal. Normal gait. 15:39 Constitutional: The patient appears alert, awake. 15:39 Cardiovascular: Rate: tachycardic, Rhythm: regular, Pulses: no pulse deficits are appreciated. 15:39 Psych: Behavior/mood is depressed, Affect is flat, Oriented to person, place, time, Patient having thoughts of suicide. Judgement / Insight is impaired. Delusions/hallucinations are not present. Vital Signs: 12:48 BP 120 / 80; Pulse 113; Resp 16; Temp 98.9(O); Pulse Ox 100% on R/A; Weight 49.9 kg aj1 (R); Height 5 ft. 3 in. (160.02 cm) (R); Pain 0/10; 16:45 BP 121 / 88; Pulse 88; Resp 18; Pulse Ox 99% on R/A; dh3 20:14 BP 104 / 74; Pulse 96; Resp 18; Temp 98.8(O); Pulse Ox 100% on R/A; jb5 12:48 Body Mass Index 19.49 (49.90 kg, 160.02 cm) aj1 MDM: 13:10 Patient medically screened. 15:39 Data reviewed: vital signs, nurses notes. Response to treatment: the patient's symptoms gs have markedly improved after treatment, and as a result, I will continue to observe the patient. 05/07 13:10 Order name: Acetaminophen; Complete Time: 15:35 05/07 13:10 Order name: Basic Metabolic Panel; Complete Time: 15:35 05/07 13:10 Order name: CBC with Diff; Complete Time: 15:35 05/07 13:10 Order name: ETOH Level; Complete Time: 15:35 05/07 13:10 Order name: Hepatic Function; Complete Time: 15:35 05/07 13:10 Order name: PT-INR; Complete Time: 15:35 05/07 13:10 Order name: Ptt, Activated; Complete Time: 15:35 05/07 13:10 Order name: Salicylate; Complete Time: 15:35 05/07 13:10 Order name: Urine Drug Screen; Complete Time: 17:57 05/07 15:42 Order name: Urine Microscopic Only; Complete Time: 17:57 05/07 16:21 Order name: Urine Culture [facility] 05/07 16:49 Order name: Urine Dipstick--Ancillary (enter results); Complete Time: 17:57 05/07 16:49 Order name: Urine --Ancillary (enter results); Complete Time: 17:57 05/07 13:10 Order name: Urine Test (obtain specimen); Complete Time: 17:25 05/07 13:10 Order name: EKG; Complete Time: 13:11 05/07 13:10 Order name: EKG - Nurse/Tech; Complete Time: 13:26 05/07 13:10 Order name: IV Saline Lock; Complete Time: 13:26 05/07 13:10 Order name: Labs collected and sent; Complete Time: 13:26 05/07 13:10 Order name: Urine Dipstick-Ancillary (obtain specimen); Complete Time: 15:42 05/07 17:05 Order name: Diet Regular; Complete Time: 17:05 tw2 Administered Medications: 14:40 Drug: clonazePAM 1 mg Route: PO; tw2 15:20 Follow up: Response: No adverse reaction; Marked relief of symptoms tw2 14:40 Drug: Tylenol 650 mg Route: PO; tw2 17:25 Follow up: Response: No adverse reaction tw2 17:04 Drug: Ativan 1 mg Route: IVP; Site: left antecubital; tw2 17:30 Follow up: Response: No adverse reaction; No change in condition tw2 19:13 Drug: KLONopin 1 mg Route: PO; la1 20:17 Follow up: Response: No adverse reaction la1 Disposition: 05/07/18 17:57 Transfer ordered to [facility]. Diagnosis are Major depressive disorder, recurrent, Suicidal ideations. - Reason for transfer: Higher level of care. - Accepting physician is law. - Condition is Stable. - Problem is new. - Symptoms have improved. Signatures: Dispatcher [employer] EDMS Sanjuanita Win RN RN aj1 Marylou Stockton RN RN ss Pasquale Perkins RN RN la1 Iman Dougherty RN RN tw2 Franklin Potts MD MD Corrections: (The following items were deleted from the chart) 17:57 17:57 05/07/2018 17:57 Transfer ordered to [facility]. Diagnosis is gs Major depressive disorder, recurrent. Reason for transfer: Higher level of care. Accepting physician is law. Condition is Stable. Problem is new. Symptoms have improved. 20:18 17:57 05/07/2018 17:57 Transfer ordered to [facility]. Diagnosis is la1 Major depressive disorder, recurrent; Suicidal ideations. Reason for transfer: Higher level of care. Accepting physician is law. Condition is Stable. Problem is new. Symptoms have improved. gs
[2018-05-07 20:40] VITALS: BP 104/74; TEMP 98.8; O2SAT 100
== END 2018-05-07 20:18 | disposition short-term general hospital (02) ==
LOC: ER 12:33
DX: F33.9 Major depressive disorder, recurrent, unspecified (principal); F41.9 Anxiety disorder, unspecified; F17.210 Nicotine dependence, cigarettes, uncomplicated; Z88.3 Allergy status to other anti-infective agents; Z88.8 Allergy status to other drugs, medicaments and biological substances
CPT/HCPCS: 36415; 80048; 80076; 80307; 80320; 80329; 81003; 81015; 81025; 85025; 85610; 85730; 87077; 87086; 87088; 87186; 93005; 96374; 99285

== ENCOUNTER 2018-05-28 11:39 | Emergency (ER) | payer SELFPAY ==
--- OUTSIDE RECORDS SUMMARY | 2018-05-28 11:41 | XMS REPORT | Clinical Summary ---
:1995 Author Organization [facility] Address [address] [place] [address] Care Team Providers Name Role Phone Asked, No Pcp Primary Care Provider Unavailable Allergies No Known Allergies Medications Medication Sig Dispensed Refills Start Date End Date Status gabapentin Take 2 180 capsule 0 05/16/2018 Active (NEURONTIN) 300 mg capsules (600 0 capsuleIndications mg total) by : Alcoholism mouth 3 (three) times a day. hydrOXYzine Take 1 tablet 30 tablet 0 05/16/2018 Active (ATARAX) 25 MG (25 mg total) 9 tabletIndications: by mouth every Anxiety 6 (six) hours as needed for anxiety for up to 30 days. escitalopram Take 1 tablet 30 tablet 0 05/17/2018 Active (LEXAPRO) 10 MG (10 mg total) 9 tabletIndications: by mouth daily Anxiety with for 90 days. Depression traZODone Take 1 tablet 30 tablet 0 05/16/2018 Active (DESYREL) 100 MG (100 mg total) 9 tabletIndications: by mouth insomnia nightly for 30 associated with days. depression nicotine (NICODERM Place 1 patch 30 patch 0 05/17/2018 Active CQ) 21 mg/24 on the skin 9 hrIndications: daily for 30 Smoking Cessation days. clonAZEPAM Take 2 mg by 0 Discontinued (KlonoPIN) 1 MG mouth 2 (two) 9 tablet times a day as needed for anxiety or seizures. buprenorphine-nalo Place 1 Film 0 Discontinued xone (SUBOXONE) under the 9 8-2 mg film tongue 2 (two) times a day. amoxicillin-pot Take 1 tablet 20 tablet 0 05/16/2018 clavulanate (500 mg total) 9 (AUGMENTIN) by mouth 2 500-125 mg per (two) times a tabletIndications: day for 10 Skin and Skin days. Structure Infection Active Problems Problem Noted Date Opioid dependence with withdrawal 05/08/2018 Encounters Date Type Specialty Care Team Description 05/07/2018 - Hospital Encounter Psychiatry Keiko Hinojosa MD 05/16/2018 Lea Mahmood MD Flack, James N., MD 05/07/2018 Intake Access N/A after 05/27/2017 Social History Tobacco Use Types Packs/Day Years Used Date Current Every Day Smoker Cigarettes 1.5 5 Tobacco Cessation: Ready to Quit: No; Counseling Given: Yes Alcohol Use Drinks/Week oz/Week Comments No Alcohol Habits Answer Date Recorded How often do you have a drink containing alcohol? Never 05/07/2018 How many drinks containing alcohol do you have on a typical Not asked day when you are drinking? How often do you have six or more drinks on one occasion? Not asked Sex Assigned at Date Recorded Not on file Job Start Date Occupation Industry Not on file Not on file Not on file Travel History Travel Start Travel End No recent travel history available. Last Filed Vital Signs Vital Sign Reading Time Taken Blood Pressure 96/58 05/16/2018 6:20 AM [facility] Pulse 64 05/16/2018 6:20 AM [employer] Temperature 36.7 C (98.1 F) 05/16/2018 6:20 AM [employer] [facility] [facility] Respiratory Rate 15 05/16/2018 6:20 AM [employer] [facility] Oxygen Saturation 99% 05/16/2018 6:20 AM [employer] [facility] Inhaled Oxygen Concentration - - Weight 50.4 kg (111 lb 3.2 oz) 05/10/2018 6:15 AM [employer] [facility] Height 160 cm (5' 3") 05/07/2018 9:40 PM [employer] [facility] Body Mass Index 19.7 05/10/2018 6:15 AM [facility] Plan of Treatment Health Maintenance Due Date Last Done Comments CHLAMYDIA SCREENING 2009 CERVICAL CANCER SCREENING 2014 INFLUENZA VACCINE 2017 Procedures Procedure Name Priority Date/Time Associated Comments Diagnosis XR PANOREX STAT 05/12/2018 10:03 Results for this PM [facility] procedure are in the results section. HCG QUALITATIVE, Routine 05/08/2018 6:00 Results for this SERUM SCREEN AM [employer] [facility] procedure are in the results section. HEMOGLOBIN A1C Routine 05/08/2018 6:00 Results for this AM [employer] procedure are in the results section. SYPHILIS TREPONEMAL Routine 05/08/2018 4:00 Results for this IGG AM [employer] procedure are in the results section. HIV AG/AB COMBINATION Routine 05/08/2018 4:00 Results for this AM [employer] [facility] procedure are in the results section. LIPID PANEL Routine 05/08/2018 4:00 Results for this AM [employer] [facility] [facility] procedure are in the results section. 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 IMPRESSION: Single Panorex demonstrates lucency of central maxilla without definition of alveolar ridge and absence of bilateral maxillary central and lateral incisors and possibly canines. Absence of right maxillary third molar, left mandibular first and third molars with defined alveolar ridge in these locations. Focal dental amalgam along the crowns of left maxillary second molar and right mandibular second molar.. Recommend maxillofacial CT for further evaluation. 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 IMPRESSION: Single Panorex demonstrates lucency of central maxilla without definition of alveolar ridge and absence of bilateral maxillary central and lateral incisors and possibly canines. Absence of right maxillary third molar, left mandibular first and third molars with defined alveolar ridge in these locations. Focal dental amalgam along the crowns of left maxillary second molar and right mandibular second molar.. Recommend maxillofacial CT for further evaluation. [facility]-[id number] Performing Organization Address City/State/Zipcode Phone Number [facility] [address] [place] [address] hCG qualitative, serum screen (05/08/2018 6:00 AM [facility] [facility] [facility]) hCG qualitative, serum NegativeComment: [facility] Sensitivity of HCG test: 25 HOSPITAL mIU/mL Specimen Blood Performing Organization Address City/[facility]/Zipcode Phone Number [facility] DEPARTMENT OF PATHOLOGY AND [address] [place] [address] GENOMIC MEDICINE [address] [address] Hemoglobin A1c (05/08/2018 6:00 AM [facility]) Hemoglobin A1C 5.0 4.0 - 5.6 % [facility] Comment: HbA1c cutoffs for diagnosing diabetes: 4.0% - 5.6%=normal 5.7% - 6.4%=increased risk for diabetes (prediabetes) >=6.5%=diabetes Goals for glycemic control (ADA 2016) < 7.0%Target for non adults with diabetes. More or less stringent targets may be appropriate for individual patients. <7.5% Target for Children and adolescents with type 1 diabetes. Specimen Blood Performing Organization Address City/[facility] Phone Number [facility] DEPARTMENT OF PATHOLOGY AND [address] [place] [address] Syphilis treponemal IgG (05/08/2018 4:00 AM [facility]) Syphilis treponemal IgG Non-reactiveComment: Non-reactive [facility] Non-reactive: No HOSPITAL serological evidence of Syphilis infection Specimen Serum Performing Organization Address City/[facility] Phone Number [facility] DEPARTMENT OF PATHOLOGY AND [address] [place] [phone] HIV Ag/Ab combination (05/08/2018 4:00 AM [facility]) HIV Ag/Ab combination Non-reactive Non-reactive [facility] Specimen Blood Performing Organization Address City/[facility] Phone Number [facility] DEPARTMENT OF PATHOLOGY AND [address] [place] [phone] Lipid panel (05/08/2018 4:00 AM [facility]) Cholesterol 142 <200 mg/dL [facility] Triglycerides 98 <150 mg/dL [facility] HDL cholesterol 51 >40 mg/dL [facility] LDL cholesterol 86Comment: Result obtained <100 mg/dL [facility] by direct LDL measurement [facility] Lipid panel interpretation SeeBelow [facility] Comment: HOSPITAL Total Cholesterol (mg/dL) <200 Desirable 080-181Xazpwrwpep-tseq >=240High Triglycerides (mg/dL) <150 Normal 314-545Fprgfawkyh-bejn 200-499High >=500Very high HDL Cholesterol (mg/dL) <40Low (male) <40Low (female) LDL Cholesterol (mg/dL) <100 Optimal 100-129Near or above optimal 109-146Tylhgmzdxs-xovt 160-189High >=190Very high Risk Catergories that modify LDL goals. Risk CatergoriesLDL goal (mg/dL) CHD and CHD risk equivalent<100 (10-year risk >20%) Multiple (2+) risk factors <130 (10-year risk=<20%) 0-1 risk factors <160 (<10-year risk) Defining levels of lipids in metabolic syndrome Triglycerides>=150 mg/dL HDL Cholesterol Men<40 mg/dL Women<40 mg/dL Non-HDL cholesterol is a second target for therapy in persons with high triglycerides (>=200 mg/dL) Specimen Plasma specimen Performing Organization Address City/State/Zipcode Phone Number [facility] DEPARTMENT OF PATHOLOGY AND [address] [place] [address] GENOMIC MEDICINE [address] [address] after 05/27/2017 Advance Directives Patient has advance care planning documents on file. For more information, please contact:[address] [address]
--- OUTSIDE RECORDS SUMMARY | 2018-05-28 11:42 | XMS REPORT ---
:1995 [facility] Address [address] [place] [address] Care Team Providers Name Role Phone DR NIDIA LESTER Unavailable Unavailable Problems This patient has no known problems. Allergies, Adverse Reactions, Alerts This patient has no known allergies or adverse reactions. Medications This patient has no known medications. Encounters Start End Encounter Admission Attending Care Care Encounter Date/Time Date/Time Type Type Clinicians Facility Department ID 2017-08-31 2017-09-01 Emergency E NIDIA LESTER [facility] [id number] 21:44:00 01:30:00 Results Test Description Test Time Test Comments Text Results Atomic Results Result Comments THYROID PANEL/SCREEN (TSH) 2017-08-31 22:45:00 Test Item Value Reference Range Comments TSH (test code=A57) 1.110 uIU/mL 0.358-3.740 [id number] 22:40:00 Test Item Value Reference Range Comments ACETAMINPH (test code=94M) <2.0 ug/mL 10.0-30.0 COMPREHENSIVE METABOLIC [id number] 22:40:00 Test Item Value Reference Range Comments [...] (test code=31A) 17 IU/L <=78 BRAIN NATRIURETIC [id number] 22:31:00 Test Item Value Reference Range Comments proBNP (test code=PBNP) 16 pg/mL 0-125 ALCOHOL BLOOD (ETOH)2017-08-31 22:30:00 Test Item Value Reference Range Comments ETOH (test code=HALC) ETHANOL The result is to be used only for medical purposes ALCOHOL (test code=56A) <10 mg/dL <=10 CARDIAC [id number] 22:30:00 Test Item Value Reference Range Comments TROPONIN I (test code=A84) <0.015 ng/mL 0.000-0.045 CKMB (test code=A49) 1.3 ng/mL <=3.6 CPK (test code=32A) 60 IU/L 26-192 [id number] 22:26:00 Test Item Value Reference Range Comments SALICYLATE (test code=94B) 2.9 mg/dL 2.8-20.0 AMYLASE AND [id number] 22:26:00 Test Item Value Reference Range Comments AMYLASE (test code=10A) 24 U/L 28-100 LIPASE (test code=60A) 97 IU/L 73-393 AMMONIA [id number] 22:25:00 Test Item Value Reference Range Comments AMMONIA (test code=54A) 16 umol/L 11-32 [id number] 22:25:00 Test Item Value Reference Range Comments MAGNESIUM (test code=48A) 2.2 mg/dL 1.8-2.4 DRUGS OF [id number] 22:17:00 Test Item Value Reference Range Comments [...] Barbiturates 200 ng/mL Opiates 2000 ng/mL SERUM [id number] 22:17:00 Test Item Value Reference Range Comments [...] MORPH (test code=RBCMOR) NORMAL PRO TIME AND [id number] 22:16:00 Test Item Value Reference Range Comments [...] or LMW Heparin. Order Code is ANTI-XA [id number] 22:09:00 Test Item Value Reference Range Comments [...]
[2018-05-28] MEDS ORDERED: LORAZEPAM 0.5 MG TABLET ONE (12:40)
--- NOTE | 2018-05-28 13:10 | EDPHYS ---
Physician Documentation [facility] Name: Shruti Garcia Age: 22 yrs Sex: Female : 1995 Arrival Date: 05/28/2018 Time: 11:41 Bed 17 Private MD: ED Physician Tye Gallegos HPI: 05/28 11:48 This 22 yrs old Female presents to ER via EMS with complaints of Anxiety. rh1 11:48 The patient presents to the emergency department with anxiety, over recent arrest. rh1 Onset: The symptoms/episode began/occurred just prior to arrival. Past psychiatric history: Prior diagnosis: depression, Psychiatric medications include: Klonipin, Lexapro, trazadone. Associated signs and symptoms: Pertinent positives; anxiety, depression, Pertinent negatives: abdominal pain, chest pain, chills, delusions, fever, hallucinations, headache, homicidal ideation, palpitations, shortness of breath, suicide ideation, vomiting. Severity of symptoms: At their worst the symptoms were moderate in the emergency department the symptoms are unchanged. The patient has not experienced similar symptoms in the past. The patient has not recently seen a physician. She was brought in today with [employer] after she began hyperventilating, and was tachycardic today after arrested and [facility]. She reports hx of panic attacks, and is having one now due to recent arrest. Reports with hyperventilation she has transient cramping in hands/feet. No chest pain, SOB, palpitations, syncope. She is calm, quiet, minimally tearful throughout examination. She has hx of PTSD and OD after her daughter's , reports taking oxycontin. She currently takes medication for anxiety/depression, took her am mullins of lexapro, has not had trazadone or clonazepam today. She sees Dr. Dobbins/psych at [facility]. Denies any SI/HI at this time. Her significant other was also brought in by police today.. IT SOLUTIONS ARCHITECT: 11:47 LMP 05/18/2018 em Historical: - Allergies: 11:47 Clindamycin; em 11:47 Neurontin; em - Home Meds: 11:47 Klonopin Oral [Active]; Lexapro Oral [Active]; em - PMHx: 11:47 Anxiety; Depression; Overdose; PREECLAMPSIA; em - Immunization history:: Adult Immunizations up to date. - Social history:: Smoking status: Patient uses tobacco products, smokes one pack cigarettes per day. - Ebola Screening: : Patient negative for fever greater than or equal to 101.5 degrees Fahrenheit, and additional compatible Ebola Virus Disease symptoms Patient denies exposure to infectious person Patient denies travel to an Ebola-affected area in the 21 days before illness onset No symptoms or risks identified at this time. ROS: 11:48 Constitutional: Negative for fever, chills, and weight loss. rh1 11:48 ENT: Negative for rhinorrhea, sore throat, difficulty swallowing, difficulty handling secretions. 11:48 Neck: Negative for pain with movement, pain at rest. 11:48 Cardiovascular: Negative for chest pain, palpitations. 11:48 Respiratory: Negative for cough, hemoptysis, shortness of breath, wheezing. 11:48 Abdomen/GI: Negative for abdominal pain, nausea, vomiting, and diarrhea. 11:48 Back: Negative for decreased range of motion, pain at rest, pain with movement, radiated pain. 11:48 : Negative for urinary symptoms. 11:48 MS/extremity: Positive for cramping, Negative for decreased range of motion, pain, paresthesias, swelling, tenderness. 11:48 Skin: Negative for pallor, rash. 11:48 Neuro: Negative for altered mental status, dizziness, headache, numbness, tingling, weakness. 11:48 Psych: Positive for anxiety, depression, Negative for auditory hallucinations, visual hallucinations, homicidal ideation, suicide gesture, suicidal ideation. Exam: 11:48 Constitutional: This is a well developed, well nourished patient who is awake, alert, rh1 and in no acute distress. Head/Face: Normocephalic, atraumatic. Eyes: Pupils equal round and reactive to light, extra-ocular motions intact. Lids and lashes normal. Conjunctiva and sclera are non-icteric and not injected. Cornea within normal limits. Periorbital areas with no swelling, redness, or edema. ENT: Nares patent. No nasal discharge, no septal abnormalities noted. Tympanic membranes are normal and external auditory canals are clear. Oropharynx with no redness, swelling, or masses, exudates, or evidence of obstruction, uvula midline. Mucous membranes moist. Neck: Trachea midline, and no cervical lymphadenopathy. Supple, full range of motion without nuchal rigidity. No Meningismus. Chest/axilla: Normal chest wall appearance and motion. Nontender with no deformity. No lesions are appreciated. Cardiovascular: Regular rate and rhythm with a normal S1 and S2. No gallops, murmurs, or rubs. No JVD. No pulse deficits. Respiratory: Lungs have equal breath sounds bilaterally, clear to auscultation. No rales, rhonchi or wheezes noted. No increased work of breathing. Abdomen/GI: Soft, non-tender, with normal bowel sounds. No distension. No guarding or rebound. No evidence of tenderness throughout. Back: No spinal tenderness. No costovertebral tenderness. Full range of motion. Skin: Warm, dry with normal turgor. Normal color with no rashes, no lesions, and no evidence of cellulitis. MS/ Extremity: Pulses equal, no cyanosis. Neurovascular intact. Full, normal range of motion. 11:48 Neuro: Orientation: is normal, to person, place \T\ time. Mentation: is normal, lucid, able to follow commands, Motor: is normal, moves all fours, Sensation: is normal, no obvious gross deficits, numbness, is not appreciated, tingling, is not appreciated, Gait: is steady, at a normal pace, without difficulty. 11:48 Psych: Behavior/mood is cooperative, tearful. Affect is calm, Oriented to person, place, time, Patient has no thoughts/intents to harm self or others. Judgement / Insight is normal. Delusions/hallucinations are not present. Vital Signs: 11:47 BP 105 / 87; Pulse 102; Resp 18; Pulse Ox 100% on R/A; Weight 52.16 kg; Height 5 ft. 3 em in. (160.02 cm); Pain 0/10; 12:40 BP 105 / 79; Pulse 88; Resp 20; Pulse Ox 100% on R/A; em 13:30 BP 110 / 77; Pulse 90; Resp 22; Pulse Ox 100% on R/A; em 11:47 Body Mass Index 20.37 (52.16 kg, 160.02 cm) em MDM: 11:[address] [facility] 13:09 Data reviewed: vital signs, nurses notes, EKG, and as a result, I will discharge 1 patient. Data interpreted: Pulse oximetry: on room air is 100 %. Interpretation: normal. Counseling: I had a detailed discussion with the patient and/or guardian regarding: the historical points, exam findings, and any diagnostic results supporting the discharge/admit diagnosis, lab results, the need for outpatient follow up, a family practitioner, a psychiatrist, to return to the emergency department if symptoms worsen or persist or if there are any questions or concerns that arise at home. 05/28 12:50 Order name: Urine Dipstick--Ancillary (enter results) 05/28 12:50 Order name: Urine --Ancillary (enter results) 05/28 12:03 Order name: EKG - Nurse/Tech; Complete Time: 12:31 [facility] 05/28 12:05 Order name: Urine Dipstick-Ancillary (obtain specimen); Complete Time: 12:31 [facility] 05/28 12:05 Order name: Urine Test (obtain specimen); Complete Time: 12:16 [facility] Administered Medications: 12:35 Drug: Ativan 0.5 mg Route: PO; em 13:38 Follow up: Response: No adverse reaction; Anxiety unchanged em Disposition: 05/29 09:14 Co-signature as Attending Physician, Tye Gallegos MD I agree with the assessment and georges plan of care. Disposition: 05/28/18 13:09 Discharged to Home. Impression: Anxiety disorder, unspecified. - Condition is Stable. - Discharge Instructions: Panic Attacks, Generalized Anxiety Disorder. - Medication Reconciliation Form, Thank You Letter, Antibiotic Education, Prescription Opioid Use form. - Follow up: Private Physician; When: 1 - 2 days; Reason: Recheck today's complaints, Continuance of care, Re-evaluation by your physician. Follow up: Emergency Department; When: As needed; Reason: Fever > 102 F, If symptoms return, Trouble breathing, Worsening of condition. - Problem is new. - Symptoms have improved. Signatures: Dispatcher [employer] Tye Gerardo MD MD cha Munoz, Edgar, BLIND AIDE BLIND AIDE em Doreen Cook, ILEANA RESOURCE CONSERVATION MANAGER [facility] Corrections: (The following items were deleted from the chart) 05/28 13:07 11:48 She began hyperventilating, and was tachycardic today after arrested and taken to [facility]. She reports hx of panic attacks, and is having one now due to recent arrest. Reports with hyperventilation she has transient cramping in hands/feet. She is calm, quiet, minimally tearful throughout examination. Denies any SI/HI at this time.. rh1 13:08 11:48 She began hyperventilating, and was tachycardic today after arrested and taken to [facility]. She reports hx of panic attacks, and is having one now due to recent arrest. Reports with hyperventilation she has transient cramping in hands/feet. She is calm, quiet, minimally tearful throughout examination. She has hx of PTSD and OD after her daughter's , reports taking oxycontin. She currently takes medication for anxiety/depression, took her am mullins of lexapro, has not had trazadone or clonazepam today. Denies any SI/HI at this time.. rh1 13:10 11:48 She was brought in today with [employer] after she began hyperventilating, and was [facility] tachycardic today after arrested and taken to penitentiary. She reports hx of panic attacks, and is having one now due to recent arrest. Reports with hyperventilation she has transient cramping in hands/feet. No chest pain, SOB, palpitations, syncope. She is calm, quiet, minimally tearful throughout examination. She has hx of PTSD and OD after her daughter's , reports taking oxycontin. She currently takes medication for anxiety/depression, took her am mullins of lexapro, has not had trazadone or clonazepam today. Denies any SI/HI at this time. Her significant other was also brought in by police today.. rh1 13:39 13:09 05/28/2018 13:09 Discharged to Home. Impression: Anxiety disorder, unspecified. em Condition is Stable. Forms are Medication Reconciliation Form, Thank You Letter, Antibiotic Education, Prescription Opioid Use. Follow up: Private Physician; When: 1 - 2 days; Reason: Recheck today's complaints, Continuance of care, Re-evaluation by your physician. Follow up: Emergency Department; When: As needed; Reason: Fever > 102 F, If symptoms return, Trouble breathing, Worsening of condition. Problem is new. Symptoms have improved. rh1
--- NOTE | 2018-05-28 13:10 | ER ---
Nurse's Notes [facility] Name: Shruti Garcia Age: 22 yrs Sex: Female : 1995 Arrival Date: 05/28/2018 Time: 11:41 Bed 17 Private MD: Diagnosis: Anxiety disorder, unspecified Presentation: 05/28 11:42 Presenting complaint: EMS states: called out for anxiety attack about 30. minutes after em being in custody, denies pain, has hx of anxiety attacks. Transition of care: patient was not received from another setting of care. Onset of symptoms was May 28, 2018. Risk Assessment: Do you want to hurt yourself or someone else? Patient reports no desire to harm self or others. Initial Sepsis Screen: Does the patient meet any 2 criteria? No. Patient's initial sepsis screen is negative. Does the patient have a suspected source of infection? No. Patient's initial sepsis screen is negative. Care prior to arrival: None. 11:42 Method Of Arrival: EMS: [facility] em 12:13 Acuity: TIMOTEO 3 iw Triage Assessment: 11:47 General: Appears in no apparent distress. comfortable, Behavior is cooperative, em anxious, crying. Pain: Denies pain. SHUTTLER: 11:47 LMP 05/18/2018 em Historical: - Allergies: 11:47 Clindamycin; em 11:47 Neurontin; em - Home Meds: 11:47 Klonopin Oral [Active]; Lexapro Oral [Active]; em - PMHx: 11:47 Anxiety; Depression; Overdose; PREECLAMPSIA; em - Immunization history:: Adult Immunizations up to date. - Social history:: Smoking status: Patient uses tobacco products, smokes one pack cigarettes per day. - Ebola Screening: : Patient negative for fever greater than or equal to 101.5 degrees Fahrenheit, and additional compatible Ebola Virus Disease symptoms Patient denies exposure to infectious person Patient denies travel to an Ebola-affected area in the 21 days before illness onset No symptoms or risks identified at this time. Screenin:51 Abuse screen: Denies threats or abuse. Nutritional screening: No deficits noted. em Tuberculosis screening: No symptoms or risk factors identified. Fall Risk None identified. Assessment: 11:47 General: Appears in no apparent distress. comfortable, Behavior is cooperative, em anxious, crying. Pain: Denies pain. Neuro: Level of Consciousness is awake, alert, obeys commands, Oriented to person, place, time, situation. Cardiovascular: Capillary refill < 3 seconds Patient's skin is warm and dry. Cardiovascular: Denies chest pain. Respiratory: Airway is patent Respiratory effort is even, unlabored, Respiratory pattern is regular, symmetrical. GI: Abdomen is flat, Patient currently denies nausea, vomiting. : Urine is clear. EENT: No signs and/or symptoms were reported regarding the EENT system. Derm: Skin is intact, is healthy with good turgor, Skin is pink, warm \T\ dry. Musculoskeletal: Range of motion: intact in all extremities. 12:40 Reassessment: Patient appears in no apparent distress at this time. Patient and/or em family updated on plan of care and expected duration. Pain level reassessed. Patient is alert, oriented x 3, equal unlabored respirations, skin warm/dry/pink. Patient states feeling better. 12:54 Reassessment: pt having a crying spell, hyperventilating at 40 breaths a minute, HR em 130, given a nonrebreather to breathe into, pt refused and pushed away, states medication did not work, will continue to monitor pt, provider notified. 13:20 Reassessment: provider at bedside, discussing POC, will be discharged after patient em calms down. 13:30 Reassessment: Patient appears in no apparent distress at this time. patient understand em she is still going to be in custody, RR 22, HR 90, BP 110/77, appears more calmed and relaxed. Vital Signs: 11:47 BP 105 / 87; Pulse 102; Resp 18; Pulse Ox 100% on R/A; Weight 52.16 kg; Height 5 ft. 3 em in. (160.02 cm); Pain 0/10; 12:40 BP 105 / 79; Pulse 88; Resp 20; Pulse Ox 100% on R/A; em 13:30 BP 110 / 77; Pulse 90; Resp 22; Pulse Ox 100% on R/A; em 11:47 Body Mass Index 20.37 (52.16 kg, 160.02 cm) em ED Course: 11:41 Patient arrived in ED. em 11:41 Jr Navarrete LVN is Primary Nurse. em 11:47 Doreen Cook NP is PHCP. rh1 11:47 Tye Gallegos MD is Attending Physician. rh1 11:47 Arm band placed on. em 11:51 Patient has correct armband on for positive identification. Placed in gown. Bed in low em position. Call light in reach. Side rails up X2. Pulse ox on. NIBP on. [employer] at bedside. 12:13 Triage completed. iw 13:37 No provider procedures requiring assistance completed. Patient did not have IV access em during this emergency room visit. Administered Medications: 12:35 Drug: Ativan 0.5 mg Route: PO; em 13:38 Follow up: Response: No adverse reaction; Anxiety unchanged em Outcome: 13:09 Discharge ordered by . rh1 13:37 Discharged to Law Enforcement em 13:37 Condition: good 13:37 Discharge instructions given to patient, police, Instructed on discharge instructions, follow up and referral plans. Demonstrated understanding of instructions, follow-up care. 13:39 Patient left the ED. em Signatures: Jr Navarrete LVN SEALANT MIXER em Ryann Tam RN RN iw Jones, Rachel, NP MANUFACTURING SHIFT SUPERVISOR rh1
[2018-05-28 13:58] VITALS: O2SAT 100
[2018-05-28 14:01] VITALS: BP 110/77
[2018-05-28 14:28] LABS: Urine Blood 2+ (NEG); Urine Glucose NEGATIVE (NEG); Urine Protein NEGATIVE (NEG); Urine pH 6.5 (5.0-7.0)
--- NOTE | 2018-05-29 09:26 | EKG ---
Test Date: 2018-05-28 Test Time: 12:20:02 Coordinating Producer: MIKE MEASUREMENT RESULTS: Intervals: Rate: 95 TN: 134 QRSD: 76 QT: 368 QTc: 462 [place]: P: 78 TN: 134 QRS: 81 T: 65 INTERPRETIVE STATEMENTS: Normal sinus rhythm Normal ECG Compared to ECG 05/07/2018 13:17:48 No significant changes Electronically Signed On 05-29-18 09:25:51 STRUCTURAL STEEL IRONWORKER by Timothy Mistry
== END 2018-05-28 13:39 | disposition home or self-care (01) ==
LOC: ER 11:39
DX: F41.9 Anxiety disorder, unspecified (principal); F32.9 Major depressive disorder, single episode, unspecified; F17.210 Nicotine dependence, cigarettes, uncomplicated; Z79.899 Other long term (current) drug therapy
CPT/HCPCS: 81003; 81025; 93005; 99283

== ENCOUNTER 2018-05-29 10:22 | Emergency (ER) | payer SELFPAY ==
--- OUTSIDE RECORDS SUMMARY | 2018-05-29 10:25 | XMS REPORT ---
:1995 Author Organization [facility] Address [address] [place] [address] [address]. [address] [place] [address] Care Team Providers Name Role Phone DR NIDIA LESTER Unavailable Unavailable Problems This patient has no known problems. Allergies, Adverse Reactions, Alerts This patient has no known allergies or adverse reactions. Medications This patient has no known medications. Encounters Start End Encounter Admission Attending Care Care Encounter Date/Time Date/Time Type Type Clinicians Facility Department ID 2017-08-31 2017-09-01 Emergency E NIDIA LESTER [facility] [id number] 21:44:00 01:30:00 Results Test Description Test Time Test Comments Text Results Atomic Results Result Comments THYROID PANEL/SCREEN (TSH) 2017-08-31 22:45:00 Test Item Value Reference Range Comments TSH (test code=A57) 1.110 uIU/mL 0.358-3.740 [id number] 22:40:00 Test Item Value Reference Range Comments ACETAMINPH (test code=94M) <2.0 ug/mL 10.0-30.0 COMPREHENSIVE METABOLIC [id number] 22:40:00 Test Item Value Reference Range Comments [...] (test code=31A) 17 IU/L <=78 BRAIN NATRIURETIC [id number] 22:31:00 Test Item Value Reference Range Comments proBNP (test code=PBNP) 16 pg/mL 0-125 ALCOHOL BLOOD (ETOH)2017-08-31 22:30:00 Test Item Value Reference Range Comments ETOH (test code=HALC) ETHANOL The result is to be used only for medical purposes ALCOHOL (test code=56A) <10 mg/dL <=10 CARDIAC [id number] 22:30:00 Test Item Value Reference Range Comments TROPONIN I (test code=A84) <0.015 ng/mL 0.000-0.045 CKMB (test code=A49) 1.3 ng/mL <=3.6 CPK (test code=32A) 60 IU/L 26-192 [id number] 22:26:00 Test Item Value Reference Range Comments SALICYLATE (test code=94B) 2.9 mg/dL 2.8-20.0 AMYLASE AND [id number] 22:26:00 Test Item Value Reference Range Comments AMYLASE (test code=10A) 24 U/L 28-100 LIPASE (test code=60A) 97 IU/L 73-393 AMMONIA [id number] 22:25:00 Test Item Value Reference Range Comments AMMONIA (test code=54A) 16 umol/L 11-32 [id number] 22:25:00 Test Item Value Reference Range Comments MAGNESIUM (test code=48A) 2.2 mg/dL 1.8-2.4 DRUGS OF [id number] 22:17:00 Test Item Value Reference Range Comments [...] Barbiturates 200 ng/mL Opiates 2000 ng/mL SERUM [id number] 22:17:00 Test Item Value Reference Range Comments [...] MORPH (test code=RBCMOR) NORMAL PRO TIME AND [id number] 22:16:00 Test Item Value Reference Range Comments [...] or LMW Heparin. Order Code is ANTI-XA [id number] 22:09:00 Test Item Value Reference Range Comments [...]
--- OUTSIDE RECORDS SUMMARY | 2018-05-29 10:25 | XMS REPORT | Clinical Summary ---
:1995 Author Organization [facility] Address [address] [place] [address] Care Team Providers Name Role Phone Asked, [...] N., MD 05/07/2018 Intake Access N/A after 05/28/2017 Social History Tobacco Use Types Packs/Day Years [...] Taken Blood Pressure 96/58 05/16/2018 6:20 AM SECURITY EXPERT Pulse 64 05/16/2018 6:20 AM SECURITY EXPERT Temperature 36.7 C (98.1 F) 05/16/2018 6:20 AM SECURITY EXPERT Respiratory Rate 15 05/16/2018 6:20 AM SECURITY EXPERT Oxygen Saturation 99% 05/16/2018 6:20 AM SECURITY EXPERT Inhaled Oxygen Concentration - - Weight 50.4 kg (111 lb 3.2 oz) 05/10/2018 6:15 AM SECURITY EXPERT Height 160 cm (5' 3") 05/07/2018 9:40 PM SECURITY EXPERT Body Mass Index 19.7 05/10/2018 6:15 AM SECURITY EXPERT Plan of Treatment Health Maintenance Due Date Last Done Comments CHLAMYDIA SCREENING 2009 CERVICAL CANCER SCREENING 2014 INFLUENZA VACCINE 2017 Procedures Procedure Name Priority Date/Time Associated Comments Diagnosis XR PANOREX STAT 05/12/2018 10:03 Results for this PM SECURITY EXPERT procedure are in the results section. HCG QUALITATIVE, Routine 05/08/2018 6:00 Results for this SERUM SCREEN AM SECURITY EXPERT procedure are in the results section. HEMOGLOBIN A1C Routine 05/08/2018 6:00 Results for this AM SECURITY EXPERT procedure are in the results section. SYPHILIS TREPONEMAL Routine 05/08/2018 4:00 Results for this IGG AM SECURITY EXPERT procedure are in the results section. HIV AG/AB COMBINATION Routine 05/08/2018 4:00 Results for this AM SECURITY EXPERT procedure are in the results section. LIPID PANEL Routine 05/08/2018 4:00 Results for this AM SECURITY EXPERT procedure are in the results section. after 05/28/2017 Results XR Panorex (05/12/2018 10:03 PM SECURITY EXPERT) Narrative Performed At EXAMINATION:XR PANOREX [facility] [...] molar.. Recommend maxillofacial CT for further evaluation. [facility]-[id number] Procedure Note Interface, Radiology Results Incoming - 05/12/2018 10:40 PM SECURITY EXPERT EXAMINATION: XR PANOREX CLINICAL HISTORY: Oral cavity [...] molar.. Recommend maxillofacial CT for further evaluation. [facility]-[id number] Performing Organization Address City/State/Zipcode Phone Number [facility] [address] [place] [address] hCG qualitative, serum screen (05/08/2018 6:00 AM SECURITY EXPERT) hCG qualitative, serum NegativeComment: [facility] Sensitivity of HCG test: 25 HOSPITAL mIU/mL Specimen Blood Performing Organization Address City/[facility]/Zipcode Phone Number [facility] DEPARTMENT OF PATHOLOGY AND [address] [place] [address] GENOMIC MEDICINE [address] [address] Hemoglobin A1c (05/08/2018 6:00 AM SECURITY EXPERT) Hemoglobin A1C 5.0 4.0 - 5.6 % [facility] Comment: HbA1c cutoffs for diagnosing diabetes: 4.0% - 5.6%=normal 5.7% - 6.4%=increased risk for diabetes (prediabetes) >=6.5%=diabetes Goals for glycemic control (ADA 2016) < 7.0%Target for non adults with diabetes. More or less stringent targets may be appropriate for individual patients. <7.5% Target for Children and adolescents with type 1 diabetes. Specimen Blood Performing Organization Address City/[facility] Phone Number [facility] DEPARTMENT OF PATHOLOGY AND [address] [place] [address] Syphilis treponemal IgG (05/08/2018 4:00 AM SECURITY EXPERT) Syphilis treponemal IgG Non-reactiveComment: Non-reactive [facility] Non-reactive: No HOSPITAL serological evidence of Syphilis infection Specimen Serum Performing Organization Address City/[facility] Phone Number [facility] DEPARTMENT OF PATHOLOGY AND [address] [place] [phone] HIV Ag/Ab combination (05/08/2018 4:00 AM SECURITY EXPERT) HIV Ag/Ab combination Non-reactive Non-reactive [facility] Specimen Blood Performing Organization Address City/[facility] Phone Number [facility] DEPARTMENT OF PATHOLOGY AND [address] [place] [phone] Lipid panel (05/08/2018 4:00 AM SECURITY EXPERT) Cholesterol 142 <200 mg/dL [facility] Triglycerides 98 <150 mg/dL [facility] HDL cholesterol 51 >40 mg/dL [facility] LDL cholesterol 86Comment: Result obtained <100 mg/dL [facility] by direct LDL measurement [facility] Lipid panel interpretation SeeBelow [facility] Comment: HOSPITAL Total Cholesterol (mg/dL) <200 Desirable 361-191Qzhtjiwcxd-enpu >=240High Triglycerides (mg/dL) <150 Normal 309-273Tsjislpmhb-obib 200-499High >=500Very high HDL Cholesterol (mg/dL) <40Low (male) <40Low (female) LDL Cholesterol (mg/dL) <100 Optimal 100-129Near or above optimal 253-456Efzayhzxma-nkbf 160-189High >=190Very high Risk Catergories that modify [...] specimen Performing Organization Address City/State/Zipcode Phone Number [facility] DEPARTMENT OF PATHOLOGY AND [address] [place] [address] GENOM[address] MED[address] [address] after 05/28/2017 Advance Directives Patient has advance care planning documents on file. For more information, please contact:[address] [address]
[2018-05-29] MEDS ORDERED: LORAZEPAM 0.5 MG TABLET ONE (10:56)
--- NOTE | 2018-05-29 11:39 | ER ---
Nurse's Notes [facility] Name: Shruti Garcia Age: 22 yrs Sex: Female : 1995 Arrival Date: 05/29/2018 Time: 10:25 Bed 26 Private MD: Diagnosis: Anxiety disorder, unspecified Presentation: 05/29 10:25 Presenting complaint: EMS states: pt here for anxiety attack, was seen here yesterday tl3 for the same, tomorrow tomlinson one year anniversary of zeus due to SIDSs. Transition of care: patient was not received from another setting of care. Onset of symptoms was May 29, 2018. Risk Assessment: Do you want to hurt yourself or someone else? Patient reports no desire to harm self or others. Initial Sepsis Screen: Does the patient meet any 2 criteria? No. Patient's initial sepsis screen is negative. Does the patient have a suspected source of infection? No. Patient's initial sepsis screen is negative. Care prior to arrival: None. 10:25 Method Of Arrival: EMS: [facility] tl3 10:25 Acuity: TIMOTEO 3 tl3 Triage Assessment: 10:28 General: Appears distressed, uncomfortable, slender, well groomed, well developed, well tl3 nourished, Behavior is cooperative, appropriate for age, anxious. Pain: Denies pain. EENT: No deficits noted. Neuro: No deficits noted. Level of Consciousness is awake, alert, obeys commands, Oriented to person, place, time, situation, Appropriate for age. Cardiovascular: Patient's skin is warm and dry. Respiratory: Airway is patent Respiratory effort is even, labored, Respiratory pattern is symmetrical, tachypnea. GI: No signs and/or symptoms were reported involving the gastrointestinal system. 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 - Social history:: Smoking status: Patient uses tobacco products, denies chronic smoking, but will smoke occasionally. - Ebola Screening: : No symptoms or risks identified at this time. - Family history:: not pertinent. Screenin:31 Abuse screen: Denies threats or abuse. Nutritional screening: No deficits noted. tl3 Tuberculosis screening: No symptoms or risk factors identified. Fall Risk None identified. Assessment: 10:31 Reassessment: No changes from previously documented assessment. tl3 10:50 Reassessment: Patient and/or family updated on plan of care and expected duration. Pain tl3 level reassessed. Patient is alert, oriented x 3, equal unlabored respirations, skin warm/dry/pink. pt crying, verbal reassurance given, lights dimmed, bed reclined for comfort. 11:29 Reassessment: No changes from previously documented assessment. Patient and/or family tl3 updated on plan of care and expected duration. Pain level reassessed. Patient is alert, oriented x 3, equal unlabored respirations, skin warm/dry/pink. Dr Gallegos at bedside talking to pt. Vital Signs: 10:28 BP 104 / 83; Pulse 115; Resp 28; Temp 97.8; Pulse Ox 100% ; Weight 52.16 kg; Height 5 tl3 ft. 7 in. (170.18 cm); 11:29 BP 103 / 89; Pulse 113; Resp 18; Pulse Ox 100% ; tl3 10:28 Body Mass Index 18.01 (52.16 kg, 170.18 cm) tl3 ED Course: 10:25 Patient arrived in ED. tl3 10:27 Triage completed. tl3 10:28 Arm band placed on right wrist. tl3 10:29 Tye Gallegos MD is Attending Physician. georges 10:31 Patient has correct armband on for positive identification. Side rails up X2. Adult w/ tl3 patient. Pulse ox on. NIBP on. 10:31 No provider procedures requiring assistance completed. Patient did not have IV access tl3 during this emergency room visit. 10:49 Verna Prince, MARTIN is Primary Nurse. tl3 Administered Medications: 10:50 Drug: Ativan 0.5 mg Route: PO; tl3 11:30 Follow up: Response: No adverse reaction tl3 11:58 Drug: KLONopin 1 mg Route: PO; tl3 11:58 Follow up: Response: Medication administered at discharge. tl3 Outcome: 11:38 Discharge ordered by . georges 11:59 Discharged to [facility] tl3 11:59 Condition: stable 11:59 Discharge instructions given to patient, Instructed on discharge instructions, follow up and referral plans. medication usage, Demonstrated understanding of instructions, follow-up care, medications, Prescriptions given X 2. 12:00 Patient left the ED. tl3 Signatures: Tye Gallegos MD MD cha Lowrey, Tammy, RN RN tl3
--- NOTE | 2018-05-29 11:39 | EDPHYS ---
Physician Documentation [facility] Name: Shruti Garcia Age: 22 yrs Sex: Female : 1995 Arrival Date: 05/29/2018 Time: 10:25 Bed 26 Private MD: ED Physician Tye Gallegos HPI: 05/29 11:36 This 22 yrs old Female presents to ER via EMS with complaints of Anxiety. georges 11:36 The patient presents to the emergency department with anxiety. Onset: The georges symptoms/episode began/occurred just prior to arrival. Past psychiatric history: Prior diagnosis: no previous psychiatric diagnosis known, addiction history. 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 - Social history:: Smoking status: Patient uses tobacco products, denies chronic smoking, but will smoke occasionally. - Ebola Screening: : No symptoms or risks identified at this time. - Family history:: not pertinent. ROS: 11:36 Constitutional: Negative for fever, chills, and weight loss, Eyes: Negative for injury, georges pain, redness, and discharge, ENT: Negative for injury, pain, and discharge, Neck: Negative for injury, pain, and swelling, Cardiovascular: Negative for chest pain, palpitations, and edema, Respiratory: Negative for shortness of breath, cough, wheezing, and pleuritic chest pain, Abdomen/GI: Negative for abdominal pain, nausea, vomiting, diarrhea, and constipation, Back: Negative for injury and pain, : Negative for injury, bleeding, discharge, and swelling, MS/Extremity: Negative for injury and deformity, Skin: Negative for injury, rash, and discoloration, Neuro: Negative for headache, weakness, numbness, tingling, and seizure, Allergy/Immunology: Negative for hives, rash, and allergies, Endocrine: Negative for neck swelling, polydipsia, polyuria, polyphagia, and marked weight changes, Hematologic/Lymphatic: Negative for swollen nodes, abnormal bleeding, and unusual bruising. 11:36 Psych: Positive for anxiety. Exam: 11:36 Constitutional: This is a well developed, well nourished patient who is awake, alert, georges and in no acute distress. Head/Face: Normocephalic, atraumatic. Eyes: Pupils equal round and reactive to light, extra-ocular motions intact. Lids and lashes normal. Conjunctiva and sclera are non-icteric and not injected. Cornea within normal limits. Periorbital areas with no swelling, redness, or edema. ENT: Nares patent. No nasal discharge, no septal abnormalities noted. Tympanic membranes are normal and external auditory canals are clear. Oropharynx with no redness, swelling, or masses, exudates, or evidence of obstruction, uvula midline. Mucous membranes moist. Neck: Trachea midline, no thyromegaly or masses palpated, and no cervical lymphadenopathy. Supple, full range of motion without nuchal rigidity, or vertebral point tenderness. No Meningismus. Chest/axilla: Normal chest wall appearance and motion. Nontender with no deformity. No lesions are appreciated. Cardiovascular: Regular rate and rhythm with a normal S1 and S2. No gallops, murmurs, or rubs. Normal PMI, no JVD. No pulse deficits. Respiratory: Lungs have equal breath sounds bilaterally, clear to auscultation and percussion. No rales, rhonchi or wheezes noted. No increased work of breathing, no retractions or nasal flaring. Abdomen/GI: Soft, non-tender, with normal bowel sounds. No distension or tympany. No guarding or rebound. No evidence of tenderness throughout. Back: No spinal tenderness. No costovertebral tenderness. Full range of motion. Skin: Warm, dry with normal turgor. Normal color with no rashes, no lesions, and no evidence of cellulitis. MS/ Extremity: Pulses equal, no cyanosis. Neurovascular intact. Full, normal range of motion. Neuro: Awake and alert, GCS 15, oriented to person, place, time, and situation. Cranial nerves II-XII grossly intact. Motor strength 5/5 in all extremities. Sensory grossly intact. Cerebellar exam normal. Normal gait. Psych: Awake, alert, with orientation to person, place and time. Behavior, mood, and affect are within normal limits. Vital Signs: 10:28 BP 104 / 83; Pulse 115; Resp 28; Temp 97.8; Pulse Ox 100% ; Weight 52.16 kg; Height 5 tl3 ft. 7 in. (170.18 cm); 11:29 BP 103 / 89; Pulse 113; Resp 18; Pulse Ox 100% ; tl3 10:28 Body Mass Index 18.01 (52.16 kg, 170.18 cm) tl3 MDM: 10:29 Patient medically screened. [facility] 11:40 Data reviewed: vital signs, nurses notes, lab test result(s), urinalysis. [facility] 05/29 10:30 Order name: Urine Dipstick-Ancillary (obtain specimen); Complete Time: 11:59 [facility] 05/29 10:30 Order name: Urine Test (obtain specimen); Complete Time: 11:58 [facility] Administered Medications: 10:50 Drug: Ativan 0.5 mg Route: PO; tl3 11:30 Follow up: Response: No adverse reaction tl3 11:58 Drug: KLONopin 1 mg Route: PO; tl3 11:58 Follow up: Response: Medication administered at discharge. tl3 Disposition: 05/29/18 11:38 Discharged to Home. Impression: Anxiety disorder, unspecified. - Condition is Stable. - Discharge Instructions: Panic Attacks, Panic Attacks, [id number], Generalized Anxiety Disorder. - Prescriptions for Lexapro 20 mg Oral tablet - take 1 tablet by ORAL route once daily; 20 tablet. Klonopin 1 mg Oral Tablet - take 1 tablet by ORAL route every 12 hours As needed; 20 tablet. - Medication Reconciliation Form, Thank You Letter, Antibiotic Education, Prescription Opioid Use form. - Follow up: Private Physician; When: 2 - 3 days; Reason: Recheck today's complaints, Continuance of care, Re-evaluation by your physician. - Problem is new. - Symptoms have improved. Signatures: Tye Gallegos MD MD cha Lowrey, Tammy RN RN tl3 Corrections: (The following items were deleted from the chart) 12:00 11:38 05/29/2018 11:38 Discharged to Home. Impression: Anxiety disorder, unspecified. tl3 Condition is Stable. Forms are Medication Reconciliation Form, Thank You Letter, Antibiotic Education, Prescription Opioid Use. Follow up: Private Physician; When: 2 - 3 days; Reason: Recheck today's complaints, Continuance of care, Re-evaluation by your physician. Problem is new. Symptoms have improved. georges
[2018-05-29] MEDS ORDERED: clonazePAM 0.5 MG TAB ONE (12:08)
[2018-05-29 12:11] VITALS: TEMP 97.8; O2SAT 100
[2018-05-29 12:18] VITALS: BP 103/89
== END 2018-05-29 12:00 | disposition home or self-care (01) ==
LOC: ER 10:22
DX: F41.9 Anxiety disorder, unspecified (principal); F32.9 Major depressive disorder, single episode, unspecified; Z79.899 Other long term (current) drug therapy; Z72.0 Tobacco use
CPT/HCPCS: 99284

== ENCOUNTER 2018-05-30 09:56 | Emergency (ER) | payer SELFPAY ==
--- OUTSIDE RECORDS SUMMARY | 2018-05-30 09:58 | XMS REPORT | Clinical Summary ---
:1995 Author Organization [employer] Address [address] [place] [address] Care Team Providers Name Role Phone Asked, [...] N., MD 05/07/2018 Intake Access N/A after 05/29/2017 Social History Tobacco Use Types Packs/Day Years [...] Taken Blood Pressure 96/58 05/16/2018 6:20 AM RN REHABILITATION Pulse 64 05/16/2018 6:20 AM RN REHABILITATION Temperature 36.7 C (98.1 F) 05/16/2018 6:20 AM RN REHABILITATION Respiratory Rate 15 05/16/2018 6:20 AM RN REHABILITATION Oxygen Saturation 99% 05/16/2018 6:20 AM RN REHABILITATION Inhaled Oxygen Concentration - - Weight 50.4 kg (111 lb 3.2 oz) 05/10/2018 6:15 AM RN REHABILITATION Height 160 cm (5' 3") 05/07/2018 9:40 PM RN REHABILITATION Body Mass Index 19.7 05/10/2018 6:15 AM RN REHABILITATION Plan of Treatment Health Maintenance Due Date Last Done Comments CHLAMYDIA SCREENING 2009 CERVICAL CANCER SCREENING 2014 INFLUENZA VACCINE 2017 Procedures Procedure Name Priority Date/Time Associated Comments Diagnosis XR PANOREX STAT 05/12/2018 10:03 Results for this PM RN REHABILITATION procedure are in the results section. HCG QUALITATIVE, Routine 05/08/2018 6:00 Results for this SERUM SCREEN AM RN REHABILITATION procedure are in the results section. HEMOGLOBIN A1C Routine 05/08/2018 6:00 Results for this AM RN REHABILITATION procedure are in the results section. SYPHILIS TREPONEMAL Routine 05/08/2018 4:00 Results for this IGG AM RN REHABILITATION procedure are in the results section. HIV AG/AB COMBINATION Routine 05/08/2018 4:00 Results for this AM RN REHABILITATION procedure are in the results section. LIPID PANEL Routine 05/08/2018 4:00 Results for this AM RN REHABILITATION procedure are in the results section. after 05/29/2017 Results XR Panorex (05/12/2018 10:03 PM RN REHABILITATION) Narrative Performed At EXAMINATION:XR PANOREX [facility] [...] molar.. Recommend maxillofacial CT for further evaluation. [id number] Procedure Note Interface, Radiology Results Incoming - 05/12/2018 10:40 PM RN REHABILITATION EXAMINATION: XR PANOREX CLINICAL HISTORY: Oral cavity [...] molar.. Recommend maxillofacial CT for further evaluation. [id number] Performing Organization Address City/State/Zipcode Phone Number [facility] [address] [place] [address] hCG qualitative, serum screen (05/08/2018 6:00 AM RN REHABILITATION) hCG qualitative, serum NegativeComment: [facility] Sensitivity of HCG test: 25 HOSPITAL mIU/mL Specimen Blood Performing Organization Address City/[facility]/Zipcode Phone Number [facility] DEPARTMENT OF PATHOLOGY AND [address] [place] [address] GENOMIC MEDICINE [address] [address] Hemoglobin A1c (05/08/2018 6:00 AM RN REHABILITATION) Hemoglobin A1C 5.0 4.0 - 5.6 % [facility] Comment: HbA1c cutoffs for diagnosing diabetes: 4.0% - 5.6%=normal 5.7% - 6.4%=increased risk for diabetes (prediabetes) >=6.5%=diabetes Goals for glycemic control (ADA 2016) < 7.0%Target for non adults with diabetes. More or less stringent targets may be appropriate for individual patients. <7.5% Target for Children and adolescents with type 1 diabetes. Specimen Blood Performing Organization Address City/[facility] Phone Number [facility] DEPARTMENT OF PATHOLOGY AND [address] [place] [address] Syphilis treponemal IgG (05/08/2018 4:00 AM RN REHABILITATION) Syphilis treponemal IgG Non-reactiveComment: Non-reactive [facility] Non-reactive: No HOSPITAL serological evidence of Syphilis infection Specimen Serum Performing Organization Address City/[facility] Phone Number [facility] DEPARTMENT OF PATHOLOGY AND [address] [place] [phone] HIV Ag/Ab combination (05/08/2018 4:00 AM RN REHABILITATION) HIV Ag/Ab combination Non-reactive Non-reactive [facility] Specimen Blood Performing Organization Address City/[facility] Phone Number [facility] DEPARTMENT OF PATHOLOGY AND [address] [place] [phone] Lipid panel (05/08/2018 4:00 AM RN REHABILITATION) Cholesterol 142 <200 mg/dL [facility] Triglycerides 98 <150 mg/dL [facility] HDL cholesterol 51 >40 mg/dL [facility] LDL cholesterol 86Comment: Result obtained <100 mg/dL [facility] by direct LDL measurement [facility] Lipid panel interpretation SeeBelow [facility] Comment: HOSPITAL Total Cholesterol (mg/dL) <200 Desirable 043-945Mkywqknmal-ydyt >=240High Triglycerides (mg/dL) <150 Normal 792-310Itxqmwidsq-rcri 200-499High >=500Very high HDL Cholesterol (mg/dL) <40Low (male) <40Low (female) LDL Cholesterol (mg/dL) <100 Optimal 100-129Near or above optimal 534-102Helbvsslwx-leiq 160-189High >=190Very high Risk Catergories that modify [...] specimen Performing Organization Address City/State/Zipcode Phone Number [facility] DEPARTMENT OF PATHOLOGY AND [address] [place] [address] GENOMIC MEDICINE [address] [address] after 05/29/2017 Advance Directives Patient has advance care planning documents on file. For more information, please contact:[address] [address]
--- OUTSIDE RECORDS SUMMARY | 2018-05-30 09:59 | XMS REPORT ---
:1995 [facility] Address [address] [place] [address] Care Team Providers Name Role Phone DR NIDIA LESTER Unavailable Unavailable Problems This patient has no known problems. Allergies, Adverse Reactions, Alerts This patient has no known allergies or adverse reactions. Medications This patient has no known medications. Encounters Start End Encounter Admission Attending Care Care Encounter Date/Time Date/Time Type Type Clinicians Facility Department ID 2017-08-31 2017-09-01 Emergency E NIDIA LESTER [facility] [id number] 21:44:00 01:30:00 Results Test Description Test Time Test Comments Text Results Atomic Results Result Comments THYROID PANEL/SCREEN (TSH) 2017-08-31 22:45:00 Test Item Value Reference Range Comments TSH (test code=A57) 1.110 uIU/mL 0.358-3.740 [id number] 22:40:00 Test Item Value Reference Range Comments ACETAMINPH (test code=94M) <2.0 ug/mL 10.0-30.0 COMPREHENSIVE METABOLIC [id number] 22:40:00 Test Item Value Reference Range Comments [...] (test code=31A) 17 IU/L <=78 BRAIN NATRIURETIC [id number] 22:31:00 Test Item Value Reference Range Comments proBNP (test code=PBNP) 16 pg/mL 0-125 ALCOHOL BLOOD (ETOH)2017-08-31 22:30:00 Test Item Value Reference Range Comments ETOH (test code=HALC) ETHANOL The result is to be used only for medical purposes ALCOHOL (test code=56A) <10 mg/dL <=10 CARDIAC [id number] 22:30:00 Test Item Value Reference Range Comments TROPONIN I (test code=A84) <0.015 ng/mL 0.000-0.045 CKMB (test code=A49) 1.3 ng/mL <=3.6 CPK (test code=32A) 60 IU/L 26-192 [id number] 22:26:00 Test Item Value Reference Range Comments SALICYLATE (test code=94B) 2.9 mg/dL 2.8-20.0 AMYLASE AND [id number] 22:26:00 Test Item Value Reference Range Comments AMYLASE (test code=10A) 24 U/L 28-100 LIPASE (test code=60A) 97 IU/L 73-393 AMMONIA [id number] 22:25:00 Test Item Value Reference Range Comments AMMONIA (test code=54A) 16 umol/L 11-32 [id number] 22:25:00 Test Item Value Reference Range Comments MAGNESIUM (test code=48A) 2.2 mg/dL 1.8-2.4 DRUGS OF [id number] 22:17:00 Test Item Value Reference Range Comments [...] Barbiturates 200 ng/mL Opiates 2000 ng/mL SERUM [id number] 22:17:00 Test Item Value Reference Range Comments [...] MORPH (test code=RBCMOR) NORMAL PRO TIME AND [id number] 22:16:00 Test Item Value Reference Range Comments [...] or LMW Heparin. Order Code is ANTI-XA [id number] 22:09:00 Test Item Value Reference Range Comments [...]
[2018-05-30 10:56] LABS: Absolute Lymphocytes (CBC) 1.4 K/uL (0.7-4.9); Absolute Monocytes 0.3 K/uL (0.1-1.3); Absolute Neutrophil 4.4 K/uL (1.8-8.0); Basophils % 0.3 % (0-1.3); Eosinophils % 0.3 % (0-4.4); Hematocrit 33.9 % (36.0-45.0); Lymphocytes % 22.3 % (15.3-44.8); MPV 9.7 fL (7.6-11.3); Monocytes % 4.8 % (3.3-12.3); RBC Red Blood Cell Count 3.83 M/uL (3.86-4.86)
[2018-05-30] MEDS ORDERED: NA CHLORIDE 0.9% 1,000 ML ONE (11:06)
[2018-05-30 11:12] LABS: ALT/SGPT 13 U/L (12-78); AST/SGOT 12 U/L (15-37); Alkaline Phosphatase 69 U/L (45-117); BUN Blood Urea Nitrogen 27 mg/dL (7-18); Bicarbonate 24 mmol/L (21-32); Bilirubin Total 0.5 mg/dL (0.2-1.0); Glucose Level 68 mg/dL (74-106); Potassium 3.7 mmol/L (3.5-5.1); Protein, Total 7.7 g/dL (6.4-8.2); Sodium Level 140 mmol/L (136-145)
[2018-05-30] MEDS ORDERED: KETOROLAC 30 MG/ML INJ ONE (11:13)
[2018-05-30 11:25] LABS: Barbiturates NEGATIVE (NEGATIVE); Benzodiazepines POSITIVE (NEGATIVE); Cocaine NEGATIVE (NEGATIVE); METHAMPHETAM NEGATIVE (NEGATIVE); Methadone NEGATIVE (NEGATIVE); Opiates NEGATIVE (NEGATIVE); Phencyclidine NEGATIVE (NEGATIVE); THC Cannibis NEGATIVE (NEGATIVE)
[2018-05-30] MEDS ORDERED: hydrOXYzine HCl 25 MG TAB ONE (11:40)
--- NOTE | 2018-05-30 11:44 | EDPHYS ---
Physician Documentation [facility] Name: Shruti Garcia Age: 22 yrs Sex: Female : 1995 Arrival Date: 05/30/2018 Time: 10:02 Bed 16 Private MD: ED Physician Travon Simon HPI: 05/30 10:37 This 22 yrs old Female presents to ER via EMS with complaints of Seizure. ps1 10:37 patient brought in by Carmelo LOJA. Has been incarcerated for 3 days. Hx of PTSD and ps1 anxiety. Additionally taking suboxone (but ran out 3 days ago). reported seizure. Dropped dose of clonazepam yesterday from 2mg to 1mg and had a reported seizure today noticed via cell camera that lasted 1 minute. No history of seizure in past. Reported anniversary of her daughters . She is AOx3. No tongue laceration. . 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 - Social history:: Smoking status: Patient uses tobacco products, smokes one pack cigarettes per day. - Ebola Screening: : Patient negative for fever greater than or equal to 101.5 degrees Fahrenheit, and additional compatible Ebola Virus Disease symptoms. ROS: 10:37 Constitutional: Negative for fever, chills, and weight loss, Eyes: Negative for injury, ps1 pain, redness, and discharge, Cardiovascular: Negative for chest pain, palpitations, and edema, Respiratory: Negative for shortness of breath, cough, wheezing, and pleuritic chest pain, Abdomen/GI: Negative for abdominal pain, nausea, vomiting, diarrhea, and constipation, Back: Negative for injury and pain, MS/Extremity: Negative for injury and deformity, Skin: Negative for injury, rash, and discoloration. 10:37 Neuro: Positive for headache, seizure activity. Exam: 10:37 Constitutional: This is a well developed, well nourished patient who is awake, alert, ps1 and in no acute distress. Head/Face: Normocephalic, atraumatic. Eyes: Pupils equal round and reactive to light, extra-ocular motions intact. Lids and lashes normal. Conjunctiva and sclera are non-icteric and not injected. Chest/axilla: Normal chest wall appearance and motion. Nontender with no deformity. No lesions are appreciated. Cardiovascular: Regular rate and rhythm. No gallops, murmurs, or rubs. Normal PMI, no JVD. No pulse deficits. Respiratory: Lungs have equal breath sounds bilaterally, clear to auscultation and percussion. No rales, rhonchi or wheezes noted. No increased work of breathing, no retractions or nasal flaring. Abdomen/GI: Soft, non-tender, with normal bowel sounds. No distension or tympany. No guarding or rebound. No evidence of tenderness throughout. Skin: Warm, dry with normal turgor. Normal color with no rashes, no lesions, and no evidence of cellulitis. MS/ Extremity: Pulses equal, no cyanosis. Neurovascular intact. Full, normal range of motion. Neuro: Awake and alert, GCS 15, oriented to person, place, time, and situation. Cranial nerves II-XII grossly intact. Sensory grossly intact. 10:37 Psych: Behavior/mood is depressed, Affect is flat, Oriented to person, place, time. Vital Signs: 10:00 BP 99 / 64; Pulse 94; Resp 17; Temp 99(O); Pulse Ox 99% on R/A; Weight 52.16 kg (R); rb1 Height 5 ft. 4 in. (162.56 cm); Pain 8/10; 11:00 BP 102 / 68; Pulse 83; Resp 16; Pulse Ox 100% on R/A; rb1 11:45 BP 104 / 65; Pulse 79; Resp 17; Pulse Ox 99% on R/A; Pain 8/10; rb1 10:00 Body Mass Index 19.74 (52.16 kg, 162.56 cm) rb1 Felix Coma Score: 10:00 Eye Response: spontaneous(4). Verbal Response: oriented(5). Motor Response: obeys rb1 commands(6). Total: 15. MDM: 11:11 Patient medically screened. ps1 11:29 Data reviewed: vital signs, nurses notes. ED course: patient reportedly had a seizure ps1 in the ED that was not typical for seizure activity. No figure four pointing. No gaze preference. No post ictal. Laughing shortly after event. . 05/30 10:37 Order name: CBC with Diff; Complete Time: 11:11 ps1 05/30 10:37 Order name: CMP; Complete Time: 11:27 ps1 05/30 10:37 Order name: Lactate; Complete Time: 11:27 ps1 05/30 10:37 Order name: UDS; Complete Time: 11: ps1 05/30 11:41 Order name: Urine Dipstick--Ancillary (enter results) bd 05/30 11:41 Order name: Urine --Ancillary (enter results) bd 05/30 10:37 Order name: Urine Dipstick-Ancillary (obtain specimen); Complete Time: 11:14 ps1 Administered Medications: 10:52 Drug: NS 0.9% 1000 ml Route: IV; Rate: 1 bolus; Site: left antecubital; rb1 11:40 Follow up: IV Status: Completed infusion rb1 11:05 Drug: TORadol 30 mg Route: IVP; Site: left antecubital; rb1 11:30 Follow up: Response: No adverse reaction; Pain is unchanged, physician notified; No new rb1 order received. 11:56 Not Given (Patient Refused; Provider notified): hydrOXYzine 50 mg PO once rb1 Disposition: 05/30/18 11:43 Discharged to Home. Impression: Psychogenic Non-Epileptic Seizure, Opioid Withdrawal. - Condition is Stable. - Discharge Instructions: Nonepileptic Seizures. - Medication Reconciliation Form, Thank You Letter, Antibiotic Education, Prescription Opioid Use form. - Follow up: Private Physician; When: As needed; Reason: Further diagnostic work-up, Recheck today's complaints, Continuance of care, Re-evaluation by your physician. Follow up: Emergency Department; When: As needed; Reason: Worsening of condition. - Problem is new. - Symptoms are unchanged. Signatures: Dispatcher [employer] EDLesa Kim RN RN rb1 Travon Simon MD MD ps1 Corrections: (The following items were deleted from the chart) 11:59 11:43 05/30/2018 11:43 Discharged to Home. Impression: Psychogenic Non-Epileptic rb1 Seizure; Opioid Withdrawal. Condition is Stable. Forms are Medication Reconciliation Form, Thank You Letter, Antibiotic Education, Prescription Opioid Use. Follow up: Private Physician; When: As needed; Reason: Further diagnostic work-up, Recheck today's complaints, Continuance of care, Re-evaluation by your physician. Follow up: Emergency Department; When: As needed; Reason: Worsening of condition. Problem is new. Symptoms are unchanged. ps1
--- NOTE | 2018-05-30 11:44 | ER ---
Nurse's Notes [facility] Name: Shruti Garcia Age: 22 yrs Sex: Female : 1995 Arrival Date: 05/30/2018 Time: 10:02 Bed 16 Private MD: Diagnosis: Psychogenic Non-Epileptic Seizure;Opioid Withdrawal Presentation: 05/30 10:00 Presenting complaint: EMS states: 22 yr. old female, A \T\ O x 4, had a seizure that rb1 lasted 1 minute and 20 seconds. Pt. responded when they did a sternal rub. History of anxiety. Facility administered Clonazepam and Lexapro. NKDA, vital signs WNL, BS 99. Pt. c/o of bodyaches. Pt. does not have a history of seizures. 10:00 Method Of Arrival: EMS: [facility] rb1 10:00 Transition of care: [facility]. Risk Assessment: Do you want to rb1 hurt yourself or someone else? Patient reports no desire to harm self or others. Initial Sepsis Screen: Does the patient meet any 2 criteria? No. Patient's initial sepsis screen is negative. Does the patient have a suspected source of infection? No. Patient's initial sepsis screen is negative. Care prior to arrival: Medication(s) given: Clonazepam and Lexapro. 10:00 Acuity: TIMOTEO 3 rb1 10:00 Onset of symptoms was May 30, 2018 at 09:30. rb1 10:00 Onset of symptoms was May 30, 2018 at 09:30. rb1 Triage Assessment: 10:00 Neuro: Level of Consciousness is awake, alert, obeys commands, Oriented to person, rb1 place, time, situation. 10:00 General: Appears in no apparent distress. comfortable, Behavior is calm, cooperative. 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 - Social history:: Smoking status: Patient uses tobacco products, smokes one pack cigarettes per day. - Ebola Screening: : Patient negative for fever greater than or equal to 101.5 degrees Fahrenheit, and additional compatible Ebola Virus Disease symptoms. Screenin:00 Abuse screen: Denies threats or abuse. Nutritional screening: No deficits noted. rb1 Tuberculosis screening: No symptoms or risk factors identified. Fall Risk None identified. Assessment: 10:00 General: See triage assessment. rb1 11:00 Reassessment: Patient appears in no apparent distress at this time. No changes from rb1 previously documented assessment. 11:30 Reassessment: Patient appears in no apparent distress at this time. Patient and/or rb1 family updated on plan of care and expected duration. Pain level reassessed. Patient is alert, oriented x 3, equal unlabored respirations, skin warm/dry/pink. pt. c/o pain 8/10, provider notified. 11:45 Reassessment: Patient appears in no apparent distress at this time. No changes from rb1 previously documented assessment. Vital Signs: 10:00 BP 99 / 64; Pulse 94; Resp 17; Temp 99(O); Pulse Ox 99% on R/A; Weight 52.16 kg (R); rb1 Height 5 ft. 4 in. (162.56 cm); Pain 8/10; 11:00 BP 102 / 68; Pulse 83; Resp 16; Pulse Ox 100% on R/A; rb1 11:45 BP 104 / 65; Pulse 79; Resp 17; Pulse Ox 99% on R/A; Pain 8/10; rb1 10:00 Body Mass Index 19.74 (52.16 kg, 162.56 cm) rb1 Felix Coma Score: 10:00 Eye Response: spontaneous(4). Verbal Response: oriented(5). Motor Response: obeys rb1 commands(6). Total: 15. ED Course: 10:00 Arm band placed on right wrist. rb1 10:00 Patient has correct armband on for positive identification. Bed in low position. Call rb1 light in reach. Side rails up X2. Pulse ox on. NIBP on. 10:00 Seizure precautions initiated. rb1 10:02 Patient arrived in ED. rb1 10:07 Triage completed. rb1 10:11 Travon Simon MD is Attending Physician. ps1 10:23 Inserted saline lock: 22 gauge in left antecubital area, using aseptic technique. Blood rb1 collected. 10:32 Lesa Shelby, MARTIN is Primary Nurse. rb1 11:14 UDS Sent. rb1 11:59 No provider procedures requiring assistance completed. IV discontinued, intact, rb1 bleeding controlled, No redness/swelling at site. Pressure dressing applied. Administered Medications: 10:52 Drug: NS 0.9% 1000 ml Route: IV; Rate: 1 bolus; Site: left antecubital; rb1 11:40 Follow up: IV Status: Completed infusion rb1 11:05 Drug: TORadol 30 mg Route: IVP; Site: left antecubital; rb1 11:30 Follow up: Response: No adverse reaction; Pain is unchanged, physician notified; No new rb1 order received. 11:56 Not Given (Patient Refused; Provider notified): hydrOXYzine 50 mg PO once rb1 Intake: Outcome: 11:43 Discharge ordered by . ps1 11:59 Patient left the ED. rb1 11:59 Discharged to home ambulatory. rb1 11:59 Condition: stable 11:59 Discharge instructions given to patient, Instructed on discharge instructions, follow up and referral plans. Demonstrated understanding of instructions, follow-up care, Prescriptions given X none Signatures: Lesa Shelby RN RN rb1 Travon Simon MD MD ps1
[2018-05-30 12:04] VITALS: TEMP 99
[2018-05-30 12:07] VITALS: BP 104/65; O2SAT 99
[2018-05-30 12:10] LABS: Urine Blood 3+ (NEG); Urine Glucose NEGATIVE (NEG); Urine Protein 1+ (NEG); Urine Specific Gravity 1.025 (1.005-1.030)
== END 2018-05-30 11:59 | disposition home or self-care (01) ==
LOC: ER 09:56
DX: F11.23 Opioid dependence with withdrawal (principal); G40.89 Other seizures; F41.9 Anxiety disorder, unspecified; F32.9 Major depressive disorder, single episode, unspecified; F17.210 Nicotine dependence, cigarettes, uncomplicated
CPT/HCPCS: 36415; 80053; 80307; 81003; 81025; 83605; 85025; 96361; 96374; 99284; J7030

== ENCOUNTER 2018-11-18 10:15 | Emergency (ER) | payer SELFPAY ==
--- OUTSIDE RECORDS SUMMARY | 2018-11-18 10:18 | XMS REPORT ---
:1995 [facility] Address [address] [place] [address] Dr. [address]. [address] [place] [address] Care Team Providers Name Role Phone DR NIDIA LESTER Unavailable Unavailable Problems This patient has no known problems. Allergies, Adverse Reactions, Alerts This patient has no known allergies or adverse reactions. Medications This patient has no known medications. Encounters Start End Encounter Admission Attending Care Care Encounter Date/Time Date/Time Type Type Clinicians Facility Department ID 2017-08-31 2017-09-01 Emergency E NIDIA LESTER [facility] [id number] 21:44:00 01:30:00 Results Test Description Test Time Test Comments Text Results Atomic Results Result Comments THYROID PANEL/SCREEN (TSH) 2017-08-31 22:45:00 Test Item Value Reference Range Comments TSH (test code=A57) 1.110 uIU/mL 0.358-3.740 [id number] 22:40:00 Test Item Value Reference Range Comments ACETAMINPH (test code=94M) <2.0 ug/mL 10.0-30.0 COMPREHENSIVE METABOLIC [id number] 22:40:00 Test Item Value Reference Range Comments [...] (test code=31A) 17 IU/L <=78 BRAIN NATRIURETIC [id number] 22:31:00 Test Item Value Reference Range Comments proBNP (test code=PBNP) 16 pg/mL 0-125 ALCOHOL BLOOD (ETOH)2017-08-31 22:30:00 Test Item Value Reference Range Comments ETOH (test code=HALC) ETHANOL The result is to be used only for medical purposes ALCOHOL (test code=56A) <10 mg/dL <=10 CARDIAC [id number] 22:30:00 Test Item Value Reference Range Comments TROPONIN I (test code=A84) <0.015 ng/mL 0.000-0.045 CKMB (test code=A49) 1.3 ng/mL <=3.6 CPK (test code=32A) 60 IU/L 26-192 [id number] 22:26:00 Test Item Value Reference Range Comments SALICYLATE (test code=94B) 2.9 mg/dL 2.8-20.0 AMYLASE AND [id number] 22:26:00 Test Item Value Reference Range Comments AMYLASE (test code=10A) 24 U/L 28-100 LIPASE (test code=60A) 97 IU/L 73-393 AMMONIA [id number] 22:25:00 Test Item Value Reference Range Comments AMMONIA (test code=54A) 16 umol/L 11-32 [id number] 22:25:00 Test Item Value Reference Range Comments MAGNESIUM (test code=48A) 2.2 mg/dL 1.8-2.4 DRUGS OF [id number] 22:17:00 Test Item Value Reference Range Comments [...] Barbiturates 200 ng/mL Opiates 2000 ng/mL SERUM [id number] 22:17:00 Test Item Value Reference Range Comments [...] MORPH (test code=RBCMOR) NORMAL PRO TIME AND [id number] 22:16:00 Test Item Value Reference Range Comments [...] or LMW Heparin. Order Code is ANTI-XA [id number] 22:09:00 Test Item Value Reference Range Comments [...]
--- OUTSIDE RECORDS SUMMARY | 2018-11-18 10:18 | XMS REPORT | Clinical Summary ---
:1995 Author Organization [facility] Address [address] [place] [address] Care Team Providers Name Role Phone Asked, No Pcp Primary Care Provider Unavailable Allergies No Known Allergies Medications Medication Sig Dispensed Refills Start Date End Date Status gabapentin Take 2 180 capsule 0 05/16/2018 Active (NEURONTIN) 300 mg capsules (600 0 capsuleIndications mg total) by : alcoholism mouth 3 (three) times a day. clonAZEPAM Take 2 mg by 0 Discontinued (KlonoPIN) 1 MG mouth 2 (two) 9 tablet times a day as needed for anxiety or seizures. buprenorphine-nalo Place 1 Film 0 Discontinued xone (SUBOXONE) under the 9 8-2 mg film tongue 2 (two) times a day. hydrOXYzine Take 1 tablet 30 tablet 0 05/16/2018 (ATARAX) 25 MG (25 mg total) 9 tabletIndications: by mouth every anxiety 6 (six) hours as needed for anxiety for up to 30 days. amoxicillin-pot Take 1 tablet 20 tablet 0 05/16/2018 clavulanate (500 mg total) 9 (AUGMENTIN) by mouth 2 500-125 mg per (two) times a tabletIndications: day for 10 skin and skin days. structure infection escitalopram Take 1 tablet 30 tablet 0 05/17/2018 (LEXAPRO) 10 MG (10 mg total) 9 tabletIndications: by mouth daily Anxiety with for 90 days. Depression traZODone Take 1 tablet 30 tablet 0 05/16/2018 (DESYREL) 100 MG (100 mg total) 9 tabletIndications: by mouth insomnia nightly for 30 associated with days. depression nicotine (NICODERM Place 1 patch 30 patch 0 05/17/2018 CQ) 21 mg/24 on the skin 9 hrIndications: daily for 30 Smoking Cessation days. 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 Temperature 36.7 C (98.1 F) 05/16/2018 6:20 AM CRM MARKETING EXECUTIVE Respiratory Rate 15 05/16/2018 6:20 AM CRM MARKETING EXECUTIVE Oxygen Saturation 99% 05/16/2018 6:20 AM 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 HCG QUALITATIVE, Routine 05/08/2018 6:00 Results for this SERUM SCREEN AM CRM MARKETING EXECUTIVE procedure are in the results section. HEMOGLOBIN A1C Routine 05/08/2018 6:00 Results for this AM CRM MARKETING EXECUTIVE procedure are in the results section. SYPHILIS TREPONEMAL Routine 05/08/2018 4:00 Results for this IGG AM CRM MARKETING EXECUTIVE procedure are in the results section. HIV AG/AB COMBINATION Routine 05/08/2018 4:00 Results for this AM CRM MARKETING EXECUTIVE procedure are in the results section. LIPID PANEL Routine 05/08/2018 4:00 Results for this AM CRM MARKETING EXECUTIVE procedure are in the results section. after 11/17/2017 Results XR Panorex (05/12/2018 10:03 PM CRM MARKETING EXECUTIVE) Specimen Narrative Performed At EXAMINATION:XR PANOREX [facility] [...] molar.. Recommend maxillofacial CT for further evaluation. [facility]-[id number] Procedure Note Interface, Radiology Results Incoming - 05/12/2018 10:40 PM CRM MARKETING EXECUTIVE EXAMINATION: XR PANOREX CLINICAL HISTORY: Oral cavity [...] molar.. Recommend maxillofacial CT for further evaluation. [facility]-[id number] Performing Organization Address City/State/Zipcode Phone Number [facility] [address] [place] [address] hCG qualitative, serum screen (05/08/2018 6:00 AM CRM MARKETING EXECUTIVE) hCG qualitative, NegativeComment: [facility] serum Sensitivity of HCG [facility] test: 25 mIU/mL Specimen Blood Performing Organization Address City/[facility] [address]/Zipcode Phone Number [facility] DEPARTMENT OF PATHOLOGY AND [address] [place] [address] GENOMIC MEDICINE [address] [address] Hemoglobin A1c (05/08/2018 6:00 AM CRM MARKETING EXECUTIVE) Hemoglobin A1C 5.0 4.0 - 5.6 % [facility] Comment: HOSPITAL HbA1c cutoffs for diagnosing diabetes: 4.0% - 5.6%=normal 5.7% - 6.4%=increased risk for diabetes (prediabetes) >=6.5%=diabetes Goals for glycemic control (ADA 2016) < 7.0%Target for non adults with diabetes. More or less stringent targets may be appropriate for individual patients. <7.5% Target for Children and adolescents with type 1 diabetes. Specimen Blood Performing Organization Address City/[facility] [address]/[facility] Phone Number [facility] DEPARTMENT OF PATHOLOGY AND [address] [place] [address] Syphilis treponemal IgG (05/08/2018 4:00 AM CRM MARKETING EXECUTIVE) Syphilis Non-reactiveComment Non-reactive [facility] treponemal IgG : Non-reactive: No HOSPITAL serological evidence of Syphilis infection Specimen Serum Performing Organization Address City/[facility] [address]/[facility] Center[facility] Phone Number [facility] DEPARTMENT OF PATHOLOGY AND [address] [place] [phone] HIV Ag/Ab combination (05/08/2018 4:00 AM CRM MARKETING EXECUTIVE) HIV Ag/Ab combination Non-reactive Non-reactive [facility] Specimen Blood Performing Organization Address [facility] [address]/[facility] Phone Number [facility] DEPARTMENT OF PATHOLOGY AND [address] [place] [phone] Lipid panel (05/08/2018 4:00 AM CRM MARKETING EXECUTIVE) Cholesterol 142 <200 mg/dL [facility] Triglycerides 98 <150 mg/dL [facility] HDL cholesterol 51 >40 mg/dL [facility] LDL cholesterol 86Comment: Result <100 mg/dL AMBER obtained by direct HOAHAOISM LDL measurement [facility] Lipid panel [facility] interpretation Comment: [facility] Total Cholesterol (mg/dL) [facility] <200 Desirable [id number]-mtvg >=240High Triglycerides (mg/dL) <150 Normal [id number] 200-499High >=500Very high HDL Cholesterol (mg/dL) <40Low (male) <40Low (female) LDL Cholesterol (mg/dL) <100 Optimal 100-129Near or above optimal [phone] 160-189High >=190Very high Risk Catergories that modify [...] specimen Performing Organization Address City/State/Zipcode Phone Number [facility] DEPARTMENT OF PATHOLOGY AND [address] [place] [address] GEN[address] [address] after 11/17/2017 Advance Directives Patient has advance care planning documents on file. For more information, please contact:[address] [address]
--- NOTE | 2018-11-18 10:37 | ER ---
Nurse's Notes [facility] Name: Shruti Garcia Age: 22 yrs Sex: Female : 1995 Arrival Date: 11/18/2018 Time: 10:16 Bed 18 Private MD: Diagnosis: Dental caries Presentation: 11/18 10:27 Presenting complaint: Patient states: "A couple days ago my back tooth started hurting aj1 but Oragel would help. When I woke up this morning the whole side of my face and into my ear is throbbing. I called my dentist but they can't get me in until , and I can't go on that long like this" Patient reports right jaw pain. Transition of care: patient was not received from another setting of care. Onset of symptoms was November 16, 2018. Risk Assessment: Do you want to hurt yourself or someone else? Patient reports no desire to harm self or others. Initial Sepsis Screen: Does the patient meet any 2 criteria? No. Patient's initial sepsis screen is negative. Does the patient have a suspected source of infection? No. Patient's initial sepsis screen is negative. Care prior to arrival: None. 10:27 Method Of Arrival: Ambulatory aj1 10:27 Acuity: TIMOTEO 4 aj1 Triage Assessment: 10:29 General: Appears in no apparent distress. uncomfortable, Behavior is calm, cooperative, aj1 appropriate for age. Pain: Complains of pain in right jaw Pain radiates to right ear Pain currently is 10 out of 10 on a pain scale. EENT: Reports pain in right jaw. Neuro: Level of Consciousness is awake, alert, obeys commands. Cardiovascular: Patient's skin is warm and dry. Respiratory: Airway is patent Respiratory effort is even, unlabored, Respiratory pattern is regular, symmetrical. MEDICAL OFFICE ASST: 10:29 LMP 10/23/2018 aj1 Historical: - Allergies: 10:29 Clindamycin; aj1 10:29 GABAPENTIN; aj1 10:29 Neurontin; aj1 10:29 NKA; aj1 10:29 Tramadol HCl; aj1 - Home Meds: 10:29 None [Active]; aj1 - PMHx: 10:29 Anxiety; Depression; Overdose; PREECLAMPSIA; aj1 - PSHx: 10:29 ; aj1 - Immunization history:: Flu vaccine is not up to date. - Social history:: Smoking status: Patient uses tobacco products, smokes one pack cigarettes per day. - Ebola Screening: : Patient denies travel to an Ebola-affected area in the 21 days before illness onset. Screenin:37 Abuse screen: Denies threats or abuse. Nutritional screening: No deficits noted. em Tuberculosis screening: No symptoms or risk factors identified. Fall Risk None identified. Assessment: 10:37 General: Appears in no apparent distress. comfortable, Behavior is calm, cooperative, em Denies fever. Pain: Complains of pain in right jaw Pain radiates to right ear Pain currently is 10 out of 10 on a pain scale. Neuro: Level of Consciousness is awake, alert, obeys commands, Oriented to person, place, time, situation. Cardiovascular: Capillary refill < 3 seconds Patient's skin is warm and dry. Respiratory: Airway is patent Respiratory effort is even, unlabored, Respiratory pattern is regular, symmetrical. EENT: Oral mucosa is moist. Throat is clear is pink. Derm: Skin is intact, is healthy with good turgor, Skin is pink, warm \\T\\ dry. Musculoskeletal: Capillary refill < 3 seconds, Range of motion: intact in all extremities. 10:37 Reassessment: I agree with assessment completed by Jr Navarrete LVN . aa5 Vital Signs: 10:29 BP 106 / 86; Pulse 108; Resp 18; Temp 98.4; Pulse Ox 100% on R/A; Weight 49.9 kg (R); aj1 Height 5 ft. 3 in. (160.02 cm) (R); Pain 10/10; 10:29 Body Mass Index 19.49 (49.90 kg, 160.02 cm) aj1 ED Course: 10:16 Patient arrived in ED. as 10:26 Gerald Gallegos PA is PHCP. [facility] 10:26 Tye Gallegos MD is Attending Physician. [facility] 10:29 Triage completed. aj1 10:29 Arm band placed on Patient placed in an exam room. aj1 10:33 Jr Navarrete LVN is Primary Nurse. em 10:37 Patient has correct armband on for positive identification. Bed in low position. em 10:50 No provider procedures requiring assistance completed. Patient did not have IV access em during this emergency room visit. Administered Medications: No medications were administered Outcome: 10:36 Discharge ordered by . ping 10:50 Discharged to home ambulatory. em 10:50 Condition: good 10:50 Discharge instructions given to patient, Instructed on discharge instructions, follow up and referral plans. medication usage, Demonstrated understanding of instructions, follow-up care, medications, Prescriptions given X 2. 10:53 Patient left the ED. em Signatures: Sanjuanita Win, RN RN aj1 Gerald Gallegos PA PA jmm Munoz, Edgar, DEPARTMENT EDITOR DEPARTMENT EDITOR Renae Magana Audri, RN RN aa5
--- NOTE | 2018-11-18 10:38 | EDPHYS ---
Physician Documentation [facility] Name: Shruti Garcia Age: 22 yrs Sex: Female : 1995 Arrival Date: 11/18/2018 Time: 10:16 Bed 18 Private MD: ED Physician Tye Gallegos HPI: 11/18 10:32 This 22 yrs old Female presents to ER via Ambulatory with complaints of jmm Toothache. 10:32 The patient presents with pain. Onset: The symptoms/episode began/occurred gradually, 2 jmm day(s) ago. Duration: The symptoms are continuous. Modifying factors: The symptoms are alleviated by nothing, the symptoms are aggravated by chewing. Associated signs and symptoms: Pertinent positives: pain, swelling, Pertinent negatives: fever. The patient has experienced similar episodes in the past. This is a 22 year old female with a history of anxiety, depression, that presents to the ED with complaints of right molar pain beginning approx 2 days ago. Patient states pain intensified today. Denies fever, denies chills. . AUTOMATIC PRESSER: 10:29 LMP 10/23/2018 aj1 Historical: - Allergies: 10:29 Clindamycin; aj1 10:29 GABAPENTIN; aj1 10:29 Neurontin; aj1 10:29 NKA; aj1 10:29 Tramadol HCl; aj1 - Home Meds: 10:29 None [Active]; aj1 - PMHx: 10:29 Anxiety; Depression; Overdose; PREECLAMPSIA; aj1 - PSHx: 10:29 ; aj1 - Immunization history:: Flu vaccine is not up to date. - Social history:: Smoking status: Patient uses tobacco products, smokes one pack cigarettes per day. - Ebola Screening: : Patient denies travel to an Ebola-affected area in the 21 days before illness onset. ROS: 10:32 Constitutional: Negative for fever, chills, and weight loss, Cardiovascular: Negative jmm for chest pain, palpitations, and edema, Respiratory: Negative for shortness of breath, cough, wheezing, and pleuritic chest pain. 10:32 ENT: Positive for dental pain. 10:32 All other systems are negative. Exam: 10:32 Constitutional: This is a well developed, well nourished patient who is awake, alert, jmm and in no acute distress. Head/Face: atraumatic. 10:32 Eyes: EOMI, no conjunctival erythema appreciated Chest/axilla: Normal chest wall appearance and motion. Cardiovascular: Regular rate and rhythm. No edema appreciated Respiratory: Normal respirations, no respiratory distress appreciated Abdomen/GI: Non distended, soft Back: Normal ROM Skin: General appearance color normal MS/ Extremity: Moves all extremities, no obvious deformities appreciated, no edema noted to the lower extremities Neuro: Awake and alert, normal gait Psych: Behavior is normal, Mood is normal, Patient is cooperative and pleasant 10:32 ENT: Dental exam: dental caries, that is moderate, specifically in the lower right second molar (#31) and lower right third molar (#32). 10:32 Neck: no submandibular swelling or tenderness appreciated . Vital Signs: 10:29 BP 106 / 86; Pulse 108; Resp 18; Temp 98.4; Pulse Ox 100% on R/A; Weight 49.9 kg (R); aj1 Height 5 ft. 3 in. (160.02 cm) (R); Pain 10; 10:29 Body Mass Index 19.49 (49.90 kg, 160.02 cm) aj1 MDM: 10:32 Patient medically screened. [facility] 10:36 Data reviewed: vital signs, nurses notes. Counseling: I had a detailed discussion with [facility] the patient and/or guardian regarding: the historical points, exam findings, and any diagnostic results supporting the discharge/admit diagnosis, the need for outpatient follow up, to return to the emergency department if symptoms worsen or persist or if there are any questions or concerns that arise at home. 10:36 ED course: Patient is alert and non toxic in appearance in the ED. Patient advised to [facility] follow [facility] with dentist and otherwise given strict return precautions. patient understood and agrees with the plan of care. . Administered Medications: No medications were administered Disposition: 11/18/18 10:36 Discharged to Home. Impression: Dental caries. - Condition is Stable. - Discharge Instructions: Dental Pain. - Prescriptions for Peridex 0.12 % Mucous Membrane mouthwash - place 15 milliliter by MUCOUS MEMBRANE route 2 times per day after brushing teeth, swish in mouth for 30 seconds then spit out; 1 bottle. penicillin V potassium 500 mg Oral tablet - take 1 tablet by ORAL route 4 times per day for 10 days; 40 tablet. - Medication Reconciliation Form, Thank You Letter, Antibiotic Education, Prescription Opioid Use form. - Follow up: Private Physician; When: 2 - 3 days; Reason: Recheck today's complaints, Continuance of care, Re-evaluation by your physician. - Notes: Please apply CLOVE OIL to your tooth as needed for pain. Addendum: 11/19/2018 11:10 Co-signature as Attending Physician, Tye Gallegos MD I agree with the assessment and c reyes plan of care. Signatures: Sanjuanita Win RN RN aj1 Tye Gallegos MD MD cha Mickail, Joel, PA PA crispinm Jr Navarrete, CROCHETER CROCHETER em Corrections: (The following items were deleted from the chart) 11/18 10:53 10:36 11/18/2018 10:36 Discharged to Home. Impression: Dental caries. Condition is em Stable. Forms are Medication Reconciliation Form, Thank You Letter, Antibiotic Education, Prescription Opioid Use. Follow up: Private Physician; When: 2 - 3 days; Reason: Recheck today's complaints, Continuance of care, Re-evaluation by your physician. ping
[2018-11-18 10:59] VITALS: BP 106/86; TEMP 98.4; O2SAT 100
== END 2018-11-18 10:53 | disposition home or self-care (01) ==
LOC: ER 10:15
DX: K02.9 Dental caries, unspecified (principal); F17.210 Nicotine dependence, cigarettes, uncomplicated; Z88.3 Allergy status to other anti-infective agents; Z88.8 Allergy status to other drugs, medicaments and biological substances
CPT/HCPCS: 99282

== ENCOUNTER 2019-09-28 16:49 | Emergency (ER) | payer OTHER, SELFPAY ==
--- OUTSIDE RECORDS SUMMARY | 2019-09-28 16:52 | XMS REPORT | Continuity of Care Document ---
:1995 Author Organization [facility] t Address [address] [place] [address] Care Team Providers Name Role Phone Asked, Pcp Primary Care Physician Unavailable Jeannine Murray Attending Clinician Andrae Muñoz MD Attending Clinician DR TREVON Attending Clinician Unavailable DR TREVON Admitting Clinician Unavailable Problems Condition Condition Condition Status Onset Resolution Last Treating Co mments Source Name Details Category Date Date Treatment Clinician Date Opioid Opioid Disease Active Sharon dependence dependence 1-14 Me thodi with with 00:00: st withdrawal withdrawal 00 Allergies, Adverse Reactions, Alerts This patient has no known allergies or adverse reactions. Social History Social Habit Start Date Stop Date Quantity Comments Source History of tobacco Cigarette Smoker Sharon use Anabaptist History [facility] Alcohol Std Drinks Method ist History [facility] Alcohol Binge Anabaptist Sex Assigned At Sharon [facility] Cigarettes smoked 2018-05-07 2018-05-07 Sharon current (pack per 00:00:00 00:00:[address] day) - Reported Cigarette 2018-05-07 2018-05-07 Sharon pack-years 00:00:00 00:00:00 Anabaptist Alcohol intake 2018-05-07 2018-05-07 Current Sharon 00:00:00 00:00:00 non-drinker of Anabaptist alcohol (finding) History [facility] 2018-05-07 2018-05-07 1 Sharon Alcohol Frequency 00:00:00 00:00:[address] Smoking Status Start Date Stop Date Source Current every day smoker 2018-05-07 00:00:00 Jackie ston [facility] Medications Ordered Filled Start Stop Current Ordering Indication Dosage Frequency Signature Comments Components Source Medication Medication Date Date Medication? Clinician (SIG) Name Name gabapentin alcoholism 600mg [id number] Take 2 Sharon (NEURONTIN) 05-16 [id number] capsules Methodi 300 mg 00:00: 23:59 3D ([address] capsule 00 :00 total) by mouth 3 (three) times a day. Procedures This patient has no known procedures. Plan of Care Planned Activity Planned Date Details Comments Source Future Scheduled 2019-11-24 INFLUENZA VACCINE [place] [facility] Test 00:00:00 [code = INFLUENZA VACCINE] Future Scheduled 2014 Screening for [facility] thodist Test 00:00:00 malignant neoplasm of cervix (procedure) [code = 089769872] Encounters Start End Encounter Admission Attending Care Care Encounter Source Date/Time Date/Time Type Type Clinicians Facility Department ID 2019-09-27 2019-09-27 Telephone [facility] [id number] 00:00:00 00:00:00 Estrellita Paez EVENT PROMOTER [id number] [facility] [id number] MATERNAL [phone] & CHILD [address] [place] [address] 2019-09-27 2019-09-27 Telephone [facility] [id number] 00:00:00 00:00:00 [facility] [id number] [facility] [id number] Professio [phone] [place] [address] Office [facility] One 2019-09-14 2019-09-14 Refill [facility] [id number] 00:00:00 00:00:00 [facility] [id number] [facility] [id number] Professio [phone] [place] [address] Office Building One 2019-08-28 2019-08-28 Telephone [facility] [id number] 00:00:00 00:00:00 [facility] [id number] [facility] [id number] Professio [phone] [place] [address] Office Building One 2019-08-22 2019-08-22 Telephone Toni DEGENO [id number] 00:00:00 00:00:00 Abdirahman Edwards [id number] Andrae Gomez [id number] Professio [phone] [place] 044 Office Building One 2019-08-15 2019-08-15 Telemedici Toni [facility] [id number] 08:19:15 08:49:15 ne Visit Abdirahman Gomez [id number] Andrae Jha [id number] Professio [phone] n[place] 044 Building 2017-08-31 2017-09-01 Emergency E NIDIA LESTER [facility] [id number] [facility] 21:44:00 01:30:00 [facility] Center Results Test Description Test Time Test Comments Results Result Comments Source THYROID PANEL/SCREEN (TSH) 2017-08-31 22:45:00 Test Item Value Reference Range Interpretation Comme nts TSH (test code = A57) 1.110 uIU/mL 0.358-3.740 [id number] 22:40:00 Test Item Value Reference Range Interpretation Comments ACETAMINPH (test code = 94M) <2.0 ug/mL 10.0-30.0 L COMPREHENSIVE METABOLIC [id number] 22:40:00 Test Item Value Reference Range Interpretation Comments GLUCOSE (test code = 06D) 72 mg/dL 75-100 L SODIUM (test code = 01A) 139 mmol/L 136-145 POTASSIUM (test code = 01B) 3.6 mmol/L 3.6-5.1 CHLORIDE (test code = 04A) 107 mmol/L 98-107 CO2 (test code = 02A) 25 mmol/L 22-32 ANION GAP (test code = ANG) 10.6 mmol/L BUN (test code = 05D) 22 mg/dL 7-18 H CREATININE (test code = 03E) 0.7 mg/dL 0.4-1.1 BUN/CREA (test code = BCR) 30 12-20 H CALCIUM (test code = 09D) 8.4 mg/dL 8.3-9.5 BILI TOTAL (test code = 11A) 0.5 mg/dL 0.2-1.0 PROTEIN (test code = 07D) 7.8 g/dL 6.4-8.2 ALBUMIN (test code = 08D) 4.0 g/dL 3.5-4.8 GLOBULIN (test code = GLB) 3.8 g/dL 1.5-3.8 ALB/GLOB (test code = AGRR) 1.1 1.0-2.6 ALK PHOS (test code = 35A) 68 IU/L 42-121 AST (test code = 30A) 20 IU/L <=42 ALT (test code = 31A) 17 IU/L <=78 BRAIN NATRIURETIC [id number] 22:31:00 Test Item Value Reference Range Interpretation Comments proBNP (test code = PBNP) 16 pg/mL 0-125 ALCOHOL BLOOD (ETOH)2017-08-31 22:30:00 Test Item Value Reference Range Interpretation Comments ETOH (test code = HALC) ETHANOL The result is to be used only for medical purposes ALCOHOL (test code = <10 mg/dL <=10 56A) CARDIAC [id number] 22:30:00 Test Item Value Reference Range Interpretation Comments TROPONIN I (test code = A84) <0.015 ng/mL 0.000-0.045 CKMB (test code = A49) 1.3 ng/mL <=3.6 CPK (test code = 32A) 60 IU/L 26-192 [id number] 22:26:00 Test Item Value Reference Range Interpretation Comments SALICYLATE (test code = 94B) 2.9 mg/dL 2.8-20.0 AMYLASE AND [id number] 22:26:00 Test Item Value Reference Range Interpretation Comments AMYLASE (test code = 10A) 24 U/L 28-100 L LIPASE (test code = 60A) 97 IU/L 73-393 AMMONIA [id number] 22:25:00 Test Item Value Reference Range Interpretation Comments AMMONIA (test code = 54A) 16 umol/L 11-32 [id number] 22:25:00 Test Item Value Reference Range Interpretation Comments MAGNESIUM (test code = 48A) 2.2 mg/dL 1.8-2.4 DRUGS OF [id number] 22:17:00 Test Item Value Reference Range Interpretation Comments DRUG SCRN (test code URINE DRUG SCREEN = HDOA) This is an unconfirmed screening result and should not be used for non-medical purposes CANNABINOD (test code Negative NEGATIVE = 88C) AMPHETAMINE (test POSITIVE NEGATIVE A code = 84A) BENZODIAZP (test code POSITIVE NEGATIVE A = 86A) BARBITURAT (test code Negative NEGATIVE = 85A) OPIATES (test code = Negative NEGATIVE 92B) COCAINE (test code = POSITIVE NEGATIVE A 87A) PHENCYCLID (test code Negative NEGATIVE = 66A) METHADONE (test code POSITIVE NEGATIVE A = 64A) DOAH (test code = DOAH) *URINE DRUG SCREEN Cut-off values are as follows: Cannabinoids 50 ng/mL Cocaine 300 ng/mL Amphetamines 1000 ng/mL Phencyclidine 25 ng/mL Benzodiazepines 200 ng.mL Methadone 300 ng/mL Barbiturates 200 ng/mL Opiates 2000 ng/mL SERUM [id number] 22:17:00 Test Item Value Reference Range Interpretation Comments PREG SRM (test code = PGS) NEGATIVE NEGATIVE CBC (INCLUDES AUTOMATED DIFFERENTIAL)2017-08-31 22:16:00 Test Item Value Reference Range Interpretation Comments WBC (test code = WBC) 5.4 10\S\3/uL 4.5-11.0 RBC (test code = RBC) 3.66 10\S\6/uL 4.30-5.70 L HGB (test code = HBG) 10.9 g/dL 12.0-15.5 L HCT (test code = HCT) 32.3 % 35.0-44.0 L MCV (test code = MCV) 88.3 fL 81.0-99.0 MCH (test code = MCH) 29.8 pg 27.0-31.0 MCHC (test code = MCHC) 33.7 g/dL 32.0-36.0 RDW (test code = RDW) 12.7 % 11.5-14.5 PLT (test code = PLT) 278 10\S\3/uL 130-400 MPV (test code = MPV) 11.0 fL 9.4-12.4 NEUTROP # (test code = NE#) 1.5 10\S\3/uL 1.6-8.0 L LYMPH # (test code = LY#) 3.1 10\S\3/uL 1.1-3.5 MONOCYTE # (test code = MO#) 0.5 10\S\3/uL 0.0-1.1 EOSINOPH # (test code = EO#) 0.2 10\S\3/uL 0.0-0.7 BASOPHIL # (test code = BA#) 0.0 10\S\3/uL 0.0-0.3 IG # (test code = IG#) 0.01 10\S\3/uL 0.00-0.06 NRBC # (test code = NRBC#) 0.00 10\S\3/uL 0.00-0.01 NEUTROPH % (test code = NE%) 28.2 % 35.0-73.0 L LYMPH % (test code = LY%) 58.5 % 20.0-55.0 H MONO % (test code = MO%) 9.5 % 2.5-10.0 EOSINOPH % (test code = EO%) 3.2 % 0.0-5.0 BASOPHIL % (test code = BA%) 0.4 % 0.0-2.0 IG % (test code = IG%) 0.2 % 0.0-0.8 NRBC% (test code = NRBC%) 0.0 % 0.0-0.2 MANDIFF (test code = MDIFF) NO NO RBC MORPH (test code = RBCMOR) NORMAL PRO TIME AND [id number] 22:16:00 Test Item Value Reference Range Interpretation Comments PT (test code = 11.7 s 9.8-13.6 TT) INR (test code = 1.0 INR) INRH (test code = SUGGESTED INRH) THERAPEUTIC RANGE FOR INR: 2.5 - 3.5 For Patients with Prosthetic Valves or Patients with recurrent Thromboembolic Events 2.0 - 3.0 For Most Other Applications PTT (test code = 18.3 s 20.2-38.0 L PTT) PTTH (test code = To monitor the PTTH) effectiveness of heparin, we offer the Anti-Xa (Heparin Assay). It can be used for either unfractionated or LMW Heparin. Order Code is ANTI-XA [id number] 22:09:00 Test Item Value Reference Range Interpretation Comments COLOR (test code = COLU) YELLOW YELLOW CLARITY (test code = CLA) CLEAR CLEAR GLUCOSE UR (test code = UA GLUCOSE) NEGATIVE NEGATIVE BILI UR (test code = BILE) NEGATIVE NEGATIVE KETONES UR (test code = MARTHA) TRACE NEGATIVE A SP GRAVITY (test code = SPGR) 1.021 1.005-1.030 PH UR (test code = PH) 6.0 4.5-8.0 PROTEIN UR (test code = PU) NEGATIVE NEGATIVE UROBIL UR (test code = UROQ) 1.0 EU/dL 0.2-1.0 NITRITE UR (test code = NITRITE) NEGATIVE NEGATIVE BLOOD UR (test code = UA BLOOD) NEGATIVE NEGATIVE LEUK ES UR (test code = LEUK) NEGATIVE NEGATIVE
--- OUTSIDE RECORDS SUMMARY | 2019-09-28 16:52 | XMS REPORT | Clinical Summary ---
:1995 Author Organization [facility] Address [address] [place] [id number] Care Team Providers Name Role Phone Asked, Pcp Primary Care Provider Unavailable Allergies No Known Allergies Medications Medication Sig Dispensed Refills Start Date End Date Status gabapentin Take 2 capsules 180 capsule 0 05/16/2018 05/16/2019 (NEURONTIN) 300 mg (600 mg total) capsuleIndications: by mouth 3 alcoholism (three) times a day. Active Problems Problem Noted Date Opioid dependence with withdrawal 05/08/2018 Social History Tobacco Use Types Packs/Day Years Used Date Current Every Day Smoker Cigarettes 1.5 5 Tobacco Cessation: Ready to Quit: No; Co unseling Given: Yes Alcohol Use Drinks/Week oz/Week Comments No Alcohol Habits Answer Date Recorded How often do you have a drink containing alcohol? Never 05/07/2018 How many drinks containing alcohol do you have on a typical Not asked day when you are drinking? How often do you have six or more drinks on one occasion? No t asked Sex Assigned at Date Recorded Not on file Job Start Date Occupation Industry Not on file Not on file Not on file Travel History Travel Start Travel End No recent travel history available. 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
--- OUTSIDE RECORDS SUMMARY | 2019-09-28 16:52 | XMS REPORT | Summary of Care ---
:1995 Author Organization [facility] Address [address] [place] [address] Care Team Providers Name Role Phone Abdirahman Muñoz MD Primary Care Provider [phone] Reason for Visit Reason Comments Depression Encounter Details Date Type Department Care Team Description 08/15/2019 Telemedicine Visit [facility] Abdirahman Muñoz Anxiety and Pediatric and Adult MD Andrae depression (Primary Primary Care- [address]) [place] [address] [facility] [address] , [address] [place], [place] [phone] [address] (Fax) [phone] Allergies Active Allergy Reactions Severity Noted Date Comments Clindamycin Hives 10/28/2017 Gabapentin Hives 10/28/2017 documented as of this encounter (statuses as of 08/15/2019) Medications Medication Sig Dispensed Refills Start Date End Date Status escitalopram Take 1 tablet 30 tablet 12 08/15/2019 Ac tive oxalate 20 mg by mouth tabletIndications: daily. Anxiety and depression clonazePAM 1 mg Take 1 tablet 60 tablet 0 08/15/2019 Active tabletIndications: by mouth 2 Anxiety and (two) times depression daily as needed (anxiety). vit Take 1 Packet 30 Each 6 11/24/2016 08/15/2019 D iscontinued 84-oovn-sjwvk-dha by mouth (SELECT-OB + DHA) daily. 29 mg iron-1 mg -250 mg combo packIndications: Supervision of high risk , antepartum, second trimester HYDROcodone-acetami Take 1 tablet 30 tablet 0 02/25/201708/14 Discontinued nophen (NORCO) by mouth 10-325 mg tablet every 6 (six) hours as needed for Pain (scale 1-3), Pain (scale 4-6) or Pain (scale 7-10). ibuprofen 800 mg Take 1 tablet 60 tablet 0 02/25/2017 08/15/19 20 Discontinued tablet by mouth every 8 (eight) hours as needed for Pain (scale 1-3). traMADOL (ULTRAM) Take 1 tablet 10 tablet 0 10/28/2017 020 Discontinued 50 mg tablet by mouth every 6 (six) hours as needed for Pain (scale 4-6). clonazePAM Take 1 mg by 0 08/15/2019 Disco ntinued (KLONOPIN) 1 mg mouth 3 tablet (three) times daily. documented as of this encounter (statuses as of 08/15/2019) Active Problems Problem Noted Date Liveborn by 02/25/2017 38 weeks gestation of 02/22/2017 Insufficient care in third trimester 02/23/20 17 Elevated blood pressure complicating , antepa rtum, third 02/22/2017 trimester Supervision of high risk , antepartum, second trimester 11/24/2016 History of pre-eclampsia in prior , currently , second 11/24/2016 trimester Insufficient care, second trimester 7 Previous delivery affecting , antepa rtum 08/24/2016 Uterine size date discrepancy, first trimester 017 Missed menses 08/24/2016 Needs flu shot 08/24/2016 Poor dentition 08/24/2016 Tobacco use disorder 08/24/2016 documented as of this encounter (statuses as of 08/15/2019) Resolved Problems Problem Noted Date Resolved Date Supervision of high risk , antepartum, first 201611/24/2016 trimester History of pre-eclampsia in prior , currently 08/2411/24/2016 , first trimester documented as of this encounter (statuses as of 08/15/2019) Immunizations Name Administration Dates Next Due DTAP 01/21/1998 DTP 04/05/1995, 05/31/1994, 03/30/1994, 01/26/1994 HEPATITIS A 02/16/2007 HIB 3 Dose Schedule 04/05/1995, 05/31/1994, 03/30/1994, 01/26/1994 HPV 02/16/2007, 12/02/2006 Hep B, Adol or Pedi Dosage 05/31/1994, 01/26/1994, 4 Influenza Virus Vaccine Quad IM 3+ YRS 08/24/2016 MMR 01/21/1998, 04/05/1995 Meningococcal Vaccine 12/02/2006 Polio (IPV/OPV) 01/21/1998, 05/31/1994, 03/27/1994, 01/26/1994 Tdap 02/16/2007 documented as of this encounter Social History Tobacco Use Types Packs/Day Years Used Date Current Every Day Smoker Cigarettes 05/2014 - 06/29/2016 Smokeless Tobacco: Never Used Comments: smokes 1/2 ppd Alcohol Use Drinks/Week oz/Week Comments No Sex Assigned at Date Recorded Not on file Job Start Date Occupation Industry Not on file Not on file Not on file Travel History Travel Start Travel End No recent travel history available. documented as of this encounter Last Filed Vital Signs Not on filedocumented in this encounter Progress Notes Abdirahman Muñoz MD - 08/15/2019 9:30 AM CDT TELEHEALTH NOTE Verbal consent obtained from Patient: Shruti Garcia for telehealth services provided below. Communication with patient was conducted via Telephone due to patient unable to obtain video call option. Location of Patient: Home Location of Provider: Office Date of Service: 08/15/2019 Chief Complaint: depression and anxiety HPI: Anxiety Presents for follow-up visit. Symptoms include decreased concentration, depressed mood, excessive worry, irritability, nervous/anxious behavior and panic. Patient reports no insomnia. Her past medical history is significant for depression. Compliance with medications: off meds for the last 4 months. Depression This is a chronic problem. The current episode started more than 1 year ago. The problem occurs constantly. The problem has been gradually worsening. Past Medical History: Diagnosis Date Bereavement 05/2018 3 month old daughter of SIDS Preeclampsia, unspecified trimester 2011 and 2013 pregnancies Allergies Allergen Reactions Clindamycin Hives Gabapentin Hives Family History Problem Relation Age of Onset Hypertension Father Non-contributory Mother SLE Other - see comments Mother HIV Arthritis NoFHx Asthma NoFHx defects NoFHx Breast Cancer NoFHx Colon Cancer NoFHx Ovarian Cancer NoFHx Uterine Cancer NoFHx Cancer NoFHx Depression NoFHx Diabetes NoFHx Genetic NoFHx Heart NoFHx High cholesterol NoFHx Mental retardation NoFHx Neurological NoFHx Osteoporosis NoFHx Psychiatry NoFHx MEDICATIONS: No current outpatient medications on file. No current facility-administered medications for this visit. ROS Review of Systems Constitutional: Positive for irritability. Psychiatric/Behavioral: Positive for decreased concentration. The patient is nervous/anxious. The patient does not have insomnia. TELEHEALTH EXAM Patient is alert and communicative on the phone with no distress noted. ASSESSMENT/ PLAN 1. Anxiety and depression escitalopram oxalate 20 mg tablet clonazePAM 1 mg tablet follow up 1 month After visit summary (AVS ) documentation will be available through [employer] for this encounter. A total of 20 minutes was spent on the Telephone due to patient unable to obtain video call option with the patient. Abdirahman Muñoz MD documented in this encounter Plan of Treatment Health Maintenance Due Date Last Done Comments HPV VACCINES (3 - Female 06/04/2007 02/16/2007, 12/02/2006 2-dose series) DTaP,Tdap,and Td Vaccines 02/16/2017 02/16/2007, 01/21/1998 , (7 - Td) 04/05/1995, Additional history exists INFLUENZA VACCINE (#1) 2018 08/24/2016 PAP SMEAR 08/25/2019 08/24/2016 PNEUMOCOCCAL 0-64 YEARS Aged Out No longe r eligible COMBINED SERIES based on patient 's age to complete this topic documented as of this encounter Results Not on filedocumented in this encounter Visit Diagnoses Diagnosis Anxiety and depression - Primary Dysthymic disorder documented in this encounter Advance Directives Name Relationship Healthcare Agent Relationship Co mmunication Marvin Sanchez Primary healthcare agent
--- OUTSIDE RECORDS SUMMARY | 2019-09-28 16:53 | XMS REPORT | Summary of Care ---
:1995 Author Organization [facility] - [facility] Address [address] [place] [address] Care Team Providers Name Role Phone Abdirahman Muñoz MD Primary Care Provider [phone] Reason for Visit Reason Comments Rx Concern/Question Encounter Details Date Type Department Care Team Description 08/22/2019 Telephone [facility] [employer] Family Abdirahman Muñoz Rx Conc florin/Question Medicine - Patricia Abebe MD [address] [place] [address] [place] [address] [place], [place] [phone] Allergies Active Allergy Reactions Severity Noted Date Comments Clindamycin Hives 10/28/2017 Gabapentin Hives 10/28/2017 documented as of this encounter (statuses as of 08/22/2019) Medications Medication Sig Dispensed Refills Start Date End Date Status escitalopram oxalate 20 Take 1 tablet by 30 tablet 12 0 Active mg tabletIndications: mouth daily. Anxiety and depression clonazePAM 1 mg Take 1 tablet by 60 tablet 0 08/15/2019 Active tabletIndications: mouth 2 (two) Anxiety and depression times daily as needed (anxiety). documented as of this encounter (statuses as of 08/22/2019) Active Problems Problem Noted Date Liveborn by [...] as of this encounter (statuses as of 08/22/2019) Resolved Problems Problem Noted Date Resolved Date Supervision of high risk , antepartum, first 201611/24/2016 trimester History of pre-eclampsia in prior , currently 08/2411/24/2016 , first trimester documented as of this encounter (statuses as of 08/22/2019) Immunizations Name Administration Dates Next Due DTAP [...] Signs Not on filedocumented in this encounter Plan of Treatment Health Maintenance Due Date Last Done Comments PNEUMOCOCCAL 0-64 YEARS COMBINED 11/24/1999 SERIES (1 of 1 - PPSV23) HPV VACCINES (3 - Female 2-dose 06/04/2007 02/16/2007, 11/23 series) DTaP,Tdap,and Td Vaccines (7 - Td) 02/16/2017 02/16/2007, 0 01/21/1998, 04/05/1995, Additional history exists INFLUENZA VACCINE (#1) 2018 08/24/2016 PAP SMEAR 08/25/2019 08/24/2016 documented as of this encounter Results Not on filedocumented in this encounter Advance Directives Name Relationship Healthcare Agent Relationship Co mmunication Marvin Sanchez Primary healthcare agent
--- OUTSIDE RECORDS SUMMARY | 2019-09-28 16:53 | XMS REPORT | Summary of Care ---
:1995 Author Organization [facility] Address [address] [place] [address] Care Team Providers Name Role Phone Abdirahman Muñoz MD Primary Care Provider [phone] Reason for Visit Reason Comments Refill Request Encounter Details Date Type Department Care Team Description 09/14/2019 Refill [facility] Family Medicine Abdirahman Lux MD Refill Request - [address] [facility] [place] [address] [place] [address] [phone] Allergies Active Allergy Reactions Severity Noted Date Comments Clindamycin Hives 10/28/2017 Gabapentin Hives 10/28/2017 documented as of this encounter (statuses as of 09/14/2019) Medications Medication Sig Dispensed Refills Start Date End Date Status escitalopram Take 1 30 tablet 12 08/15/2019 Active oxalate 20 mg tablet by tabletIndications: mouth daily. Anxiety and depression clonazePAM 1 mg Take 1 60 tablet 0 09/14/2019 Act baylee tabletIndications: tablet by Anxiety and mouth 2 depression (two) times daily as needed (anxiety). clonazePAM 1 mg Take 1 60 tablet 0 08/15/2019 Dis continued tabletIndications: tablet by 0 ( Reorder) Anxiety and mouth 2 depression (two) times daily as needed (anxiety). documented as of this encounter (statuses as of 09/14/2019) Active Problems Problem Noted Date Liveborn by [...] as of this encounter (statuses as of 09/14/2019) Resolved Problems Problem Noted Date Resolved Date Supervision of high risk , antepartum, first 201611/24/2016 trimester History of pre-eclampsia in prior , currently 08/2411/24/2016 , first trimester documented as of this encounter (statuses as of 09/14/2019) Immunizations Name Administration Dates Next Due DTAP [...] 02/16/2007, 0 01/21/1998, 04/05/1995, Additional history exists PAP SMEAR 08/25/2019 08/24/2016 INFLUENZA VACCINE (Season Ended) 2019 08/24/2016 documented as of this encounter Results Not on filedocumented in this encounter Visit Diagnoses Diagnosis Anxiety and depression Dysthymic disorder documented in this encounter Advance Directives Name Relationship Healthcare Agent Relationship Co mmunication Marvin Sanchez Primary healthcare agent
--- OUTSIDE RECORDS SUMMARY | 2019-09-28 16:53 | XMS REPORT | Summary of Care ---
:1995 Author Organization [facility] - [facility] Address [address] [place] [address] Care Team Providers Name Role Phone Abdirahman Muñoz MD Primary Care Provider [phone] Reason for Visit Reason Comments Rx Concern/Question Encounter Details Date Type Department Care Team Description 08/28/2019 Telephone [facility] [employer] Family Abdirahman Muñoz Rx Conc florin/Question Medicine - Patricia Abebe MD [address] [place] [address] [place] [address] [place], [place] [phone] Allergies Active Allergy Reactions Severity Noted Date Comments Clindamycin Hives 10/28/2017 Gabapentin Hives 10/28/2017 documented as of this encounter (statuses as of 08/28/2019) Medications Medication Sig Dispensed Refills Start Date End Date Status escitalopram oxalate 20 Take 1 tablet by 30 tablet 12 0 Active mg tabletIndications: mouth daily. Anxiety and depression clonazePAM 1 mg Take 1 tablet by 60 tablet 0 08/15/2019 Active tabletIndications: mouth 2 (two) Anxiety and depression times daily as needed (anxiety). documented as of this encounter (statuses as of 08/28/2019) Active Problems Problem Noted Date Liveborn by [...] as of this encounter (statuses as of 08/28/2019) Resolved Problems Problem Noted Date Resolved Date Supervision of high risk , antepartum, first 201611/24/2016 trimester History of pre-eclampsia in prior , currently 08/2411/24/2016 , first trimester documented as of this encounter (statuses as of 08/28/2019) Immunizations Name Administration Dates Next Due DTAP [...] Relationship Healthcare Agent Relationship Co mmunication Marvin Garcia Father Primary healthcare agent
--- OUTSIDE RECORDS SUMMARY | 2019-09-28 16:54 | XMS REPORT | Summary of Care ---
:[address] [facility] Address [address] [place] [address] Care Team Providers Name Role Phone Abdirahman Muñoz MD Primary Care Provider [phone] Reason for Visit Reason Comments Assessment light spotting Encounter Details Date Type Department Care Team Description 09/27/[address] [facility] [address] [place] [address] [place] [address] [place], [place] [phone] [address] [phone] Allergies Active Allergy Reactions Severity Noted Date Comments Clindamycin Hives 10/28/2017 Gabapentin Hives 10/28/2017 documented as of this encounter (statuses as of 09/27/2019) Medications Medication Sig Dispensed Refills Start Date End Date Status escitalopram oxalate 20 Take 1 tablet by 30 tablet 12 0 Active mg tabletIndications: mouth daily. Anxiety and depression clonazePAM 1 mg Take 1 tablet by 60 tablet 0 09/14/2019 Active tabletIndications: mouth 2 (two) Anxiety and depression times daily as needed (anxiety). documented as of this encounter (statuses as of 09/27/2019) Active Problems Problem Noted Date Liveborn by [...] as of this encounter (statuses as of 09/27/2019) Resolved Problems Problem Noted Date Resolved Date Supervision of high risk , antepartum, first 201611/24/2016 trimester History of pre-eclampsia in prior , currently 08/2411/24/2016 , first trimester documented as of this encounter (statuses as of 09/27/2019) Immunizations Name Administration Dates Next Due DTAP [...] filedocumented in this encounter Plan of Treatment Date Type Specialty Care Team Description 10/03/2019 [facility] Initial Visit [facility] Jeannine Yepez, [facility] [address] [facility] [place], [place] [address] [phone] Health Maintenance Due Date Last Done Comments PNEUMOCOCCAL 0-64 YEARS COMBINED 11/24/1999 SERIES (1 of 1 - PPSV23) Depression Screening 2005 HPV VACCINES (3 - Female 2-dose 06/04/2007 02/16/2007, 11/23 series) DTaP,Tdap,and Td Vaccines (7 - Td) 02/16/2017 02/16/2007, 0 01/21/1998, 04/05/1995, Additional history exists PAP SMEAR 08/25/2019 08/24/2016 INFLUENZA VACCINE (Season Ended) 2019 08/24/2016 documented as of this encounter Results Not on filedocumented in this encounter Insurance Payer Benefit Plan / Subscriber ID Effective Dates Phone Addre ss Type Group [facility] MEDICAID OF xxxxxxxxx 2019-Present [phone] Medicaid [place] [id number] [place] [id number] documented as of this encounter Advance Directives Name Relationship Healthcare Agent Relationship Co mmunication Marvin Garcia Father Primary healthcare agent
--- OUTSIDE RECORDS SUMMARY | 2019-09-28 16:54 | XMS REPORT | Summary of Care ---
:1995 Author Organization [facility] - [facility] Address [address] [place] [address] Care Team Providers Name Role Phone Abdirahman Muñoz MD Primary Care Provider [phone] Reason for Visit Reason Comments Rx Concern/Question Encounter Details Date Type Department Care Team Description 09/27/2019 Telephone [facility] [employer] Family Abdirahman Muñoz Rx Conc florin/Question Medicine - Patricia Abebe MD [address] [place] [address] [address] [place] [address] [place] [address] [place] [phone] Allergies Active Allergy Reactions Severity Noted Date Comments Clindamycin Hives 10/28/2017 Gabapentin Hives 10/28/2017 documented as of this encounter (statuses as of 09/28/2019) Medications Medication Sig Dispensed Refills Start Date End Date Status escitalopram oxalate 20 Take 1 tablet by 30 tablet 12 0 Active mg tabletIndications: mouth daily. Anxiety and depression clonazePAM 1 mg Take 1 tablet by 60 tablet 0 09/14/2019 Active tabletIndications: mouth 2 (two) Anxiety and depression times daily as needed (anxiety). documented as of this encounter (statuses as of 09/28/2019) Active Problems Problem Noted Date Liveborn by [...] as of this encounter (statuses as of 09/28/2019) Resolved Problems Problem Noted Date Resolved Date Supervision of high risk , antepartum, first 201611/24/2016 trimester History of pre-eclampsia in prior , currently 08/2411/24/2016 , first trimester documented as of this encounter (statuses as of 09/28/2019) Immunizations Name Administration Dates Next Due DTAP [...] Description 10/03/2019 Office Visit [facility], [facility] Room 10/03/2019 Initial Visit [facility] Jeannine Yepez, [employer] [address] [place], [place] [address] [phone] Health Maintenance Due Date Last Done Comments [...] Effective Dates Phone Addre ss Type Group [facility] MEDICAID OF xxxxxxxxx 2019-Present [phone] [address] Medicaid [place] [id number] [place] [phone] documented as of this encounter Advance Directives Name Relationship Healthcare Agent Relationship Co mmunication Marvin Garcia Father Primary healthcare agent
[2019-09-28 18:52] LABS: Basophils % 0.5 % (0-1.3); Hematocrit 28.6 % (36.0-45.0); Lymphocytes % 45.4 % (15.3-44.8); MPV 9.3 fL (7.6-11.3); RBC Red Blood Cell Count 3.05 M/uL (3.86-4.86)
[2019-09-28 19:15] LABS: BUN Blood Urea Nitrogen 12 mg/dL (7-18); Bicarbonate 28 mmol/L (21-32); Glucose Level 86 mg/dL (74-106); Potassium 3.8 mmol/L (3.5-5.1); Sodium Level 140 mmol/L (136-145)
[2019-09-28 19:32] LABS: HCG, Quantitative 6250 mIU/mL (1-3)
[2019-09-28 19:34] LABS: Urine Blood 2+ (NEG); Urine Glucose NEGATIVE (NEG); Urine Protein NEGATIVE (NEG)
[2019-09-28] MEDS ORDERED: ACETAMINOPHEN 500 MG TAB ONE (20:02)
--- NOTE | 2019-09-28 20:35 | ER ---
Nurse's Notes [facility] Name: Shruti Garcia Age: 23 yrs Sex: Female : 1995 Arrival Date: 09/28/2019 Time: 16:54 Bed 18 Private MD: Diagnosis: Threatened ;Less than 8 weeks gestation of Presentation: 09/27 17:03 Chief complaint: Patient states: Vaginal bleeding for 3 days. "like a period", but ll1 started having clots today. Cramping to lower abdomen and back today. G4, P2. Coronavirus screen: Proceed with normal triage. Patient denies a cough. Patient denies shortness of breath or difficulty breathing. Patient denies measured and/or subjective temperature greater than 100.4F prior to today's visit. Patient denies travel on a cruise ship or to a country the [facility] currently lists as an affected area. Patient denies contact with known and/or suspected case of COVID-19. Ebola Screen: Patient denies travel to an Ebola-affected area in the 21 days before illness onset. Initial Sepsis Screen: Does the patient meet any 2 criteria? No. Patient's initial sepsis screen is negative. Risk Assessment: Do you want to hurt yourself or someone else? Patient reports no desire to harm self or others. Onset of symptoms was September 26, 2019. 17:03 Method Of Arrival: Ambulatory ll1 17:03 Acuity: TIMOTEO 3 ll1 20:59 Initial Sepsis Screen: Does the patient have a suspected source of infection? No. Patient's initial sepsis screen is negative. 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 - Social history:: Smoking status: Patient reports the use of cigarette tobacco products, smokes one-half pack cigarettes per day, Patient/guardian denies using alcohol, street drugs. Screenin:00 Abuse screen: Denies threats or abuse. Nutritional screening: No deficits noted. Tuberculosis screening: No symptoms or risk factors identified. Fall Risk None identified. Assessment: 17:30 General: Appears in no apparent distress. uncomfortable, Behavior is calm, cooperative. ah Pain: Complains of pain in suprapubic area Pain currently is 7 out of 10 on a pain scale. Quality of pain is described as crampy, Pain began 2-3 days ago. Neuro: Level of Consciousness is awake, alert, Oriented to person, place, time, situation. Cardiovascular: Capillary refill < 3 seconds Patient's skin is warm and dry. Respiratory: Respiratory effort is even, unlabored, Respiratory pattern is regular, symmetrical. GI: Bowel sounds present X 4 quads. Reports cramping. : Urine is clear, Reports cramping, lower back vaginal bleeding that is with clots, light flow. Derm: Skin is intact, is healthy with good turgor. 18:30 Reassessment: Patient and/or family updated on plan of care and expected duration. Pain ah level reassessed. Patient is alert, oriented x 3, equal unlabored respirations, skin warm/dry/pink. 19:30 Reassessment: Patient and/or family updated on plan of care and expected duration. Pain ah level reassessed. Patient is alert, oriented x 3, equal unlabored respirations, skin warm/dry/pink. awaiting for ultrasound. 20:15 Reassessment: Patient and/or family updated on plan of care and expected duration. Pain ah level reassessed. ultrasound in room at this time. Pt states that tylenol has helped. No other needs voiced. Vital Signs: 17:03 BP 109 / 76; Pulse 76; Resp 16; Temp 98.5; Pulse Ox 100% ; Weight 47.63 kg; Height 5 ll1 ft. 4 in. (162.56 cm); Pain 8/10; 20:30 BP 119 / 84; Pulse 81; Resp 17; Pulse Ox 94% ; ah 17:03 Body Mass Index 18.02 (47.63 kg, 162.56 cm) ll1 ED Course: 16:54 Patient arrived in ED. mr 17:05 Triage completed. ll1 17:06 Arm band placed on. ll1 18:13 Leidy Ambrocio FNP-C is [facility]. kb 18:13 Deniz Guo MD is Attending Physician. kb 18:40 Initial lab(s) drawn, by me, sent to lab. Inserted saline lock: 20 gauge in left em1 antecubital area, using aseptic technique. Blood collected. 18:49 Alissa Mistry, RN is Primary Nurse. 20:00 Patient has correct armband on for positive identification. Placed in gown. Bed in low ah position. Call light in reach. Side rails up X 1. Pulse ox on. NIBP on. 20:00 No provider procedures requiring assistance completed. IV discontinued, intact, bleeding controlled, No redness/swelling at site. Pressure dressing applied. 20:38 Transvaginal Ob In Process Unspecified. EDMS Administered Medications: 19:45 Drug: Tylenol 1000 mg Route: PO; 20:55 Follow up: Response: No adverse reaction Outcome: 20:34 Discharge ordered by . 20:45 Discharged to home ambulatory. 20:45 Condition: stable 20:45 Discharge instructions given to patient, Instructed on discharge instructions, follow up and referral plans. Demonstrated understanding of instructions, follow-up care. 20:59 Patient left the ED. Signatures: Dispatcher [employer] EDMS Leidy Ambrocio, GOLF COURSE ARCHITECT-C GOLF COURSE ARCHITECT-Ckb Aneudy, Angelita Lugo, Cliff em1 Alissa Mistry, RN RN Jackson Carver RN RN ll1
--- NOTE | 2019-09-28 20:35 | EDPHYS ---
Physician Documentation [facility] Name: Shruti Garcia Age: 23 yrs Sex: Female : 1995 Arrival Date: 09/28/2019 Time: 16:54 Bed 18 Private MD: ED Physician Deniz Guo HPI: 09/27 18:26 This 23 yrs old Female presents to ER via Ambulatory with complaints of kb Vaginal Bleeding, . 18:26 The patient presents to the emergency department with abdominal pain, of the right kb lower quadrant and left lower quadrant, that started 3 day(s) ago, described as constant, vaginal bleeding, that is light. course: care: at a clinic, Leakage of Fluid: none appreciated, Ultrasound: the patient has not had an ultrasound. Previous pregnancies: in previous pregnancies patient has had. Associated signs and symptoms: Pertinent positives: abdominal pain, vaginal bleeding, Pertinent negatives: chest pain, diarrhea, dysuria, fever, frequency, nausea, ruptured membranes, seizure, shortness of breath, vaginal discharge, vomiting. The patient has not experienced similar symptoms in the past. The patient has not recently seen a physician. Pt reports vaginal bleeding and cramping started 3 days ago. Has her first OB appt with the [facility] on Tuesday. Called them about symptoms and was told to come to the ER if she got worse. Pain and bleeding got worse today. 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 - Social history:: Smoking status: Patient reports the use of cigarette tobacco products, smokes one-half pack cigarettes per day, Patient/guardian denies using alcohol, street drugs. ROS: 09/28 00:22 Constitutional: Negative for fever, chills, and weight loss, Neck: Negative for injury, kb pain, and swelling, Cardiovascular: Negative for chest pain, palpitations, and edema, Respiratory: Negative for shortness of breath, cough, wheezing, and pleuritic chest pain, Back: Negative for injury and pain, MS/Extremity: Negative for injury and deformity, Skin: Negative for injury, rash, and discoloration, Neuro: Negative for headache, weakness, numbness, tingling, and seizure. Abdomen/GI: Positive for abdominal cramps. : Positive for vaginal bleeding. Exam: 00:22 Constitutional: This is a well developed, well nourished patient who is awake, alert, kb and in no acute distress. Head/Face: Normocephalic, atraumatic. Chest/axilla: Normal chest wall appearance and motion. Nontender with no deformity. No lesions are appreciated. Cardiovascular: Regular rate and rhythm with a normal S1 and S2. No gallops, murmurs, or rubs. Normal PMI, no JVD. No pulse deficits. Respiratory: Lungs have equal breath sounds bilaterally, clear to auscultation and percussion. No rales, rhonchi or wheezes noted. No increased work of breathing, no retractions or nasal flaring. Back: No spinal tenderness. No costovertebral tenderness. Full range of motion. Skin: Warm, dry with normal turgor. Normal color with no rashes, no lesions, and no evidence of cellulitis. MS/ Extremity: Pulses equal, no cyanosis. Neurovascular intact. Full, normal range of motion. Neuro: Awake and alert, GCS 15, oriented to person, place, time, and situation. Cranial nerves II-XII grossly intact. Motor strength 5/5 in all extremities. Sensory grossly intact. Cerebellar exam normal. Normal gait. 00:22 Abdomen/GI: Inspection: abdomen appears normal, Bowel sounds: normal, in all quadrants, Palpation: soft, in all quadrants, mild abdominal tenderness, in the right lower quadrant and left lower quadrant. Vital Signs: 06/05 17:03 BP 109 / 76; Pulse 76; Resp 16; Temp 98.5; Pulse Ox 100% ; Weight 47.63 kg; Height 5 ll1 ft. 4 in. (162.56 cm); Pain 8/10; 20:30 BP 119 / 84; Pulse 81; Resp 17; Pulse Ox 94% ; ah 17:03 Body Mass Index 18.02 (47.63 kg, 162.56 cm) ll1 MDM: 18:13 Patient medically screened. kb 20:34 Data reviewed: vital signs, nurses notes. Data interpreted: Pulse oximetry: on room air kb is 100 %. Interpretation: normal. Counseling: I had a detailed discussion with the patient and/or guardian regarding: the historical points, exam findings, and any diagnostic results supporting the discharge/admit diagnosis, lab results, radiology results, the need for outpatient follow up, an OB/Gyne specialist. 09/27 18:24 Order name: Quantitative Hcg; Complete Time: 19:35 kb 09/27 18:24 Order name: Abo/rh Typing; Complete Time: 19:40 kb 09/27 18:24 Order name: Basic Metabolic Panel; Complete Time: 19:35 kb 09/27 18:24 Order name: CBC with Diff; Complete Time: 19:09 kb 09/27 18:25 Order name: Urine --Ancillary (enter results); Complete Time: 19:35 kb 09/27 18:25 Order name: Urine Dipstick--Ancillary (enter results); Complete Time: 19:35 kb 09/27 17:11 Order name: Urine Dipstick-Ancillary (obtain specimen); Complete Time: 18:24 kb 09/27 17:11 Order name: Urine Test (obtain specimen); Complete Time: 18:24 kb 09/27 18:24 Order name: IV Saline Lock; Complete Time: 18:40 kb 09/27 18:24 Order name: Labs collected and sent; Complete Time: 18:40 kb 09/27 18:24 Order name: NPO; Complete Time: 19:17 kb 09/27 18:25 Order name: US Transvaginal Ob kb Administered Medications: 19:45 Drug: Tylenol 1000 mg Route: PO; 20:55 Follow up: Response: No adverse reaction Disposition: 09/28 07:08 Co-signature as Attending Physician, Deniz Guo MD. rn Disposition: 09/28/19 20:34 Discharged to Home. Impression: Threatened , Less than 8 weeks gestation of . - Condition is Stable. - Discharge Instructions: First Trimester of , [id number], Threatened Miscarriage, [id number]. - Medication Reconciliation Form, Thank You Letter, Antibiotic Education, Prescription Opioid Use form. - Follow up: Emergency Department; When: As needed; Reason: Worsening of condition. Follow up: Private Physician; When: 2 - 3 days; Reason: Recheck today's complaints, Continuance of care, Re-evaluation by your physician. Signatures: Dispatcher [employer] EDLeidy Wiggins, ABRASIVES SALES REPRESENTATIVE-C ABRASIVES SALES REPRESENTATIVE-Deniz Almaraz MD MD rn Harris, Amy RN Jackson Contreras RN RN ll1 Corrections: (The following items were deleted from the chart) 09/27 20:59 20:34 09/28/2019 20:34 Discharged to Home. Impression: Threatened ; Less than 8 ah weeks gestation of . Condition is Stable. Forms are Medication Reconciliation Form, Thank You Letter, Antibiotic Education, Prescription Opioid Use. Follow up: Emergency Department; When: As needed; Reason: Worsening of condition. Follow up: Private Physician; When: 2 - 3 days; Reason: Recheck today's complaints, Continuance of care, Re-evaluation by your physician. kb
--- NOTE | 2019-09-28 20:48 | RAD REPORT ---
EXAM DESCRIPTION: US - Transvaginal OB - 09/28/2019 8:38 pm CLINICAL HISTORY: with pelvic pain and vaginal bleeding COMPARISON: None. FINDINGS: The uterus measures 9 x 5 x 6 centimeters. A normal appearing gestational sac is present within the endometrium. Within this is a yolk sac and pole with a crown-rump length 1.1. Cardia c activity 152 beats per minute The right and left ovary not visualized secondary to overlying bowel gas. . . An adnexal mass is not noted. No significant free fluid is seen. IMPRESSION: Single live intrauterine with an estimated gestational age 7 weeks 0 days MANJINDER 05/16/2020
[2019-09-28 21:09] VITALS: TEMP 98.5
[2019-09-28 21:11] VITALS: BP 119/84; O2SAT 94
== END 2019-09-28 20:59 | disposition home or self-care (01) ==
LOC: ER 16:49
DX: O20.0 Threatened abortion (principal); Z3A.08 8 weeks gestation of pregnancy; Z88.3 Allergy status to other anti-infective agents; F17.210 Nicotine dependence, cigarettes, uncomplicated
CPT/HCPCS: 36415; 76817; 80048; 81003; 81025; 84702; 85025; 86900; 86901; 99284

== ENCOUNTER 2020-06-07 10:01 | Emergency (ER) | payer OTHER ==
--- NOTE | 2020-06-07 10:26 | ER ---
Nurse's Notes [facility] [address] [place] Name: Shruti Garcia Age: 24 yrs Sex: Female : 1995 Arrival Date: 06/07/2020 Time: 10:03 Bed 15 Private MD: Diagnosis: Periapical abscess without sinus Presentation: 06/07 10:13 Chief complaint: Patient states: L sided dental pain for 3-4 days. States she has bad ll1 teeth in the upper and lower jaw. No fever. Dental appointment is scheduled for next week. Coronavirus screen: Client denies travel out of the [place] in the last 14 days. At this time, the client does not indicate any symptoms associated with coronavirus-19. Ebola Screen: Patient denies travel to an Ebola-affected area in the 21 days before illness onset. Initial Sepsis Screen: Does the patient meet any 2 criteria? No. Patient's initial sepsis screen is negative. Does the patient have a suspected source of infection? Yes: Other: dental pain. Risk Assessment: Do you want to hurt yourself or someone else? Patient reports no desire to harm self or others. Onset of symptoms was June 03, 2020. 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 - Social history:: Smoking status: Patient reports the use of cigarette tobacco products, smokes one-half pack cigarettes per day. Screenin:15 Abuse screen: Denies threats or abuse. Nutritional screening: No deficits noted. ll1 Tuberculosis screening: No symptoms or risk factors identified. Fall Risk None identified. Total Espinosa Fall Scale indicates No Risk (0-24 pts). Assessment: 10:16 General: Appears uncomfortable, Behavior is calm, cooperative, appropriate for age. ll1 Pain: Complains of pain in L jaw Pain currently is 10 out of 10 on a pain scale. Quality of pain is described as aching, throbbing. Neuro: No deficits noted. Cardiovascular: No deficits noted. Respiratory: No deficits noted. EENT: Reports pain in L upper and lower jaw. Vital Signs: 10:13 BP 128 / 76; Pulse 65; Resp 16; Temp 97.8; Pulse Ox 100% ; Weight 49.9 kg; Height 5 ft. ll1 3 in. (160.02 cm); Pain 10/10; 10:13 Body Mass Index 19.49 (49.90 kg, 160.02 cm) ll1 ED Course: 10:03 Patient arrived in ED. ds1 10:07 Leidy Ambrocio FNP-C [facility]. kb 10:07 Tye Gallegos MD is Attending Physician. kb 10:11 Jackson Carver, MARTIN is Primary Nurse. ll1 10:11 Arm band placed on Patient placed in an exam room, on a stretcher. ll1 10:15 Triage completed. ll1 10:15 Patient has correct armband on for positive identification. Bed in low position. Call ll1 light in reach. Cardiac monitoring not applicable on this patient. 10:45 No provider procedures requiring assistance completed. Patient did not have IV access ll1 during this emergency room visit. Administered Medications: 10:36 Drug: Augmentin 875 mg Route: PO; ll1 10:45 Follow up: Response: No adverse reaction; RASS: Alert and Calm (0) ll1 10:36 Drug: Salters (7.5 mg-325 mg) 1 tabs Route: PO; ll1 10:45 Follow up: Response: No adverse reaction; RASS: Alert and Calm (0) ll1 Outcome: 10:26 Discharge ordered by . kb 10:46 Discharged to home ambulatory. ll1 10:46 Condition: stable 10:46 Discharge instructions given to patient, Instructed on discharge instructions, follow up and referral plans. medication usage, Demonstrated understanding of instructions, follow-up care, medications, Prescriptions given X 2. 10:47 Patient left the ED. ll1 Signatures: Leidy Ambrocio FNP-C FNP-Kelvin KellyCharu swanson ds1 Divine Olsen RN RN Jackson Carver RN RN ll1
--- NOTE | 2020-06-07 10:26 | EDPHYS ---
Physician Documentation [facility] Name: Shruti Garcia Age: 24 yrs Sex: Female : 1995 Arrival Date: 06/07/2020 Time: 10:03 Bed 15 Private MD: ED Physician Tye Gallegos HPI: 06/07 10:24 This 24 yrs old Female presents to ER via Ambulatory with complaints of kb Dental Pain. 10:24 The patient presents with pain, redness, swelling. The problem is located in the lower kb left second molar (#18) and upper left cuspid (#11). Onset: The symptoms/episode began/occurred 4 day(s) ago. Duration: The symptoms are continuous. Modifying factors: The symptoms are alleviated by nothing, the symptoms are aggravated by nothing. Associated signs and symptoms: Pertinent positives: pain, redness in area, swelling. Severity of symptoms: At their worst the symptoms were moderate, in the emergency department the symptoms are unchanged. The patient has not experienced similar symptoms in the past. The patient has not recently seen a physician. Pt reports dental pain to upper and lower left mouth. States it started 4 days ago and is due to bad teeth. Pt has appt scheduled next week, but the pain was getting worse. 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 - Social history:: Smoking status: Patient reports the use of cigarette tobacco products, smokes one-half pack cigarettes per day. ROS: 10:21 Constitutional: Negative for fever, chills, and weight loss, Respiratory: Negative for kb shortness of breath, cough, wheezing, and pleuritic chest pain, Abdomen/GI: Negative for abdominal pain, nausea, vomiting, diarrhea, and constipation, Neuro: Negative for headache, weakness, numbness, tingling, and seizure. 10:21 ENT: Positive for dental pain. Exam: 10:21 Constitutional: This is a well developed, well nourished patient who is awake, alert, kb and in no acute distress. Head/Face: Normocephalic, atraumatic. MS/ Extremity: Pulses equal, no cyanosis. Neurovascular intact. Full, normal range of motion. Neuro: Awake and alert, GCS 15, oriented to person, place, time, and situation. Cranial nerves II-XII grossly intact. Motor strength 5/5 in all extremities. Sensory grossly intact. Cerebellar exam normal. Normal gait. 10:21 ENT: Dental exam: abscess, that is mild, specifically in the upper left cuspid (#11), dental caries, that is moderate, specifically in the upper left cuspid (#11) and lower left second molar (#18), the patient wears dentures, missing teeth, pain, that is moderate, specifically in the upper left cuspid (#11) and lower left second molar (#18). 10:21 Respiratory: the patient does not display signs of respiratory distress, Respirations: normal. Vital Signs: 10:13 BP 128 / 76; Pulse 65; Resp 16; Temp 97.8; Pulse Ox 100% ; Weight 49.9 kg; Height 5 ft. ll1 3 in. (160.02 cm); Pain 10/10; 10:13 Body Mass Index 19.49 (49.90 kg, 160.02 cm) ll1 MDM: 10:07 Patient medically screened. kb 10:21 Data reviewed: vital signs, nurses notes. Data interpreted: Pulse oximetry: on room air kb is 100 %. Interpretation: normal. Counseling: I had a detailed discussion with the patient and/or guardian regarding: the historical points, exam findings, and any diagnostic results supporting the discharge/admit diagnosis, the need for outpatient follow up, a dentist, to return to the emergency department if symptoms worsen or persist or if there are any questions or concerns that arise at home. Administered Medications: 10:36 Drug: Augmentin 875 mg Route: PO; ll1 10:45 Follow up: Response: No adverse reaction; RASS: Alert and Calm (0) ll1 10:36 Drug: Compton (7.5 mg-325 mg) 1 tabs Route: PO; ll1 10:45 Follow up: Response: No adverse reaction; RASS: Alert and Calm (0) ll1 Disposition: 02/13/21 10:26 Discharged to Home. Impression: Periapical abscess without sinus. - Condition is Stable. - Discharge Instructions: Dental Pain, [id number], Dental Abscess, [id number]. - Prescriptions for Augmentin 875- 125 mg Oral Tablet - take 1 tablet by ORAL route every 12 hours for 10 days; 20 tablet. Diclofenac Sodium 75 mg Oral Tablet, Delayed Release (E.C.) - take 1 tablet by ORAL route 2 times per day As needed; 30 tablet. - Medication Reconciliation Form, Thank You Letter, Antibiotic Education, Prescription Opioid Use, Work release form form. - Follow up: Emergency Department; When: As needed; Reason: Worsening of condition. Follow up: Private Physician; When: 2 - 3 days; Reason: Recheck today's complaints, Continuance of care, Re-evaluation by your physician. Addendum: 06/08/2020 14:42 Co-signature as Attending Physician, Tye Gallegos MD I agree with the assessment and c reyes plan of care. Signatures: Leidy Ambrocio, SHREDDED FILLER MACHINE WRAPPER LAYER-C SHREDDED FILLER MACHINE WRAPPER LAYER-Ckb Tye Gallegos MD MD cha Baxter, Heather, RN RN Jackson Carver RN RN ll1 Corrections: (The following items were deleted from the chart) 06/07 10:47 10:26 06/07/2020 10:26 Discharged to Home. Impression: Periapical abscess without ll1 sinus. Condition is Stable. Forms are Medication Reconciliation Form, Thank You Letter, Antibiotic Education, Prescription Opioid Use. Follow up: Emergency Department; When: As needed; Reason: Worsening of condition. Follow up: Private Physician; When: 2 - 3 days; Reason: Recheck today's complaints, Continuance of care, Re-evaluation by your physician. kb
[2020-06-07] MEDS ORDERED: HYDROCODONE/APAP 7.5/325 MG TAB ONE (10:50)
[2020-06-07] MEDS ORDERED: AMOX/K CLAV 875 MG TAB ONE (10:50)
[2020-06-07 10:51] VITALS: BP 128/76; TEMP 97.8; O2SAT 100
== END 2020-06-07 10:47 | disposition home or self-care (01) ==
LOC: ER 10:01
DX: K04.7 Periapical abscess without sinus (principal); F17.210 Nicotine dependence, cigarettes, uncomplicated; Z88.1 Allergy status to other antibiotic agents; Z88.3 Allergy status to other anti-infective agents; Z88.8 Allergy status to other drugs, medicaments and biological substances
CPT/HCPCS: 99283

== ENCOUNTER 2021-01-27 17:05 | Emergency (ER) | payer OTHER ==
--- NOTE | 2021-01-27 18:21 | EDPHYS ---
Physician Documentation [facility] [place] [place] Name: Shruti Garcia Age: 25 yrs Sex: Female : 1995 Arrival Date: 01/27/2021 Time: 17:08 Bed 20 Private MD: ED Physician Deniz Guo HPI: 01/27 18:16 This 25 yrs old Female presents to ER via Ambulatory with complaints of Eye rn Pain. 18:16 The patient is experiencing pain, tearing, The patient sustained None. to both eyes, rn caused by an unknown mechanism. Onset: The symptoms/episode began/occurred 3 day(s) ago. Duration: the symptoms are continuous. Aggravated by closing eye, light, rubbing, Alleviated by nothing. Associated signs and symptoms: Pertinent negatives: fever, headache, runny nose. Patient does not utilize any form of vision correction. Severity of symptoms: At their worst the symptoms were moderate in the emergency department the symptoms are unchanged. The patient has not experienced similar symptoms in the past. The patient has not recently seen a physician. Patient reports had a stye in right eye a week ago that went away. Now having several days of bilateral eye pain. Denies any trauma. Reports very sensitive to light and feels like something is in her eyes even though has not gotten anything in her eyes. Does not wear contacts. No vision changes or loss.. Historical: - Allergies: 17:24 Ciprofloxacin HCl; sv 17:24 Clindamycin; sv 17:24 GABAPENTIN; sv 17:24 Neurontin; sv - PMHx: 17:24 Anxiety; Depression; Overdose; PREECLAMPSIA; sv - Immunization history:: Adult Immunizations up to date. - Social history:: Smoking status: Patient reports the use of cigarette tobacco products. - Family history:: not pertinent. - Hospitalizations: : No recent hospitalization is reported. ROS: 18:16 Constitutional: Negative for fever, chills, and weight loss, Eyes: Negative for injury rn or splash. ENT: Negative for injury, pain, and discharge, Neck: Negative for injury, pain, and swelling, Skin: Negative for injury, rash, and discoloration, Neuro: Negative for headache, weakness, numbness, tingling, and seizure. Exam: 18:16 Constitutional: This is a well developed, well nourished patient who is awake, alert, rn sensitive to light Head/Face: Normocephalic, atraumatic. Eyes: Pupils equal round and reactive to light, extra-ocular motions intact. Lids and lashes normal. Injected conjunctiva. Positive bilateral fluorescein uptake that is irregular and at 6 o'clock position of both eyes, almost appears dendritic lesions, no ulceration, no hypopyon, no hyphema Vital Signs: 17:25 BP 109 / 80; Pulse 87; Resp 18; Temp 97.8; Pulse Ox 99% ; Weight 49.9 kg; Height 5 ft. sv 3 in. (160.02 cm); Pain 10/10; 17:25 Body Mass Index 19.49 (49.90 kg, 160.02 cm) sv MDM: 18:06 Patient medically screened. rn 18:16 Differential diagnosis: Corneal abrasion of Corneal ulcer of Acute iritis of Keratitis, rn herpes keratitis. Data reviewed: vital signs, nurses notes, and as a result, I will discharge patient. Counseling: I had a detailed discussion with the patient and/or guardian regarding: the historical points, exam findings, and any diagnostic results supporting the discharge/admit diagnosis, the need for outpatient follow up, to return to the emergency department if symptoms worsen or persist or if there are any questions or concerns that arise at home. ED course: Will treat patient for infectious conjunctivitis and possible herpes keratitis. Urged to follow-up with ophthalmology.. Administered Medications: No medications were administered Disposition Summary: 01/27/21 18:20 Discharge Ordered Location: Home rn Problem: new rn Symptoms: have improved rn Condition: Stable rn Diagnosis - Unspecified acute conjunctivitis, bilateral rn - Herpesviral keratitis rn Followup: rn - With: Ayaka Fernandez MD - When: 2 - 3 days - Reason: Recheck today's complaints, Re-evaluation by your physician Discharge Instructions: - Discharge Summary Sheet rn - Herpes Keratitis rn - Bacterial Conjunctivitis, Adult rn Forms: - Medication Reconciliation Form rn - Thank You Letter rn - Antibiotic burner shaft - Prescription Opioid Use rn Prescriptions: - Acyclovir 800 mg Oral Tablet - take 1 tablet by ORAL route 5 times per day for 10 days; 50 tablet; Refills: 0, rn Product Selection Permitted - Erythromycin 5 mg/gram (0.5 %) Ophthalmic Ointment - apply 1 centimeter by OPHTHALMIC route 2-3 times daily for 7 days; 1 tube; rn Refills: 0, Product Selection Permitted Signatures: Kerline Real RN RN sv Deniz Guo MD MD rn
--- NOTE | 2021-01-27 18:21 | ER ---
Nurse's Notes [facility] Name: Shruti Garcia Age: 25 yrs Sex: Female : 1995 Arrival Date: 01/27/2021 Time: 17:08 Bed 20 Private MD: Diagnosis: Unspecified acute conjunctivitis, bilateral;Herpesviral keratitis Presentation: 01/27 17:23 Chief complaint: Patient states: R eye sty x 1 week and went away. Today it now silva sv in bilateral eyes with double and blurry vision. cc/o headache. Mechanism of Injury: No Mechanism of Injury. Risk Assessment: Do you want to hurt yourself or someone else? Patient reports no desire to harm self or others. Onset of symptoms was January 27, 2021. 17:23 Method Of Arrival: Ambulatory sv 17:23 Acuity: TIMOTEO 3 sv 17:24 Coronavirus screen: Vaccine status: Patient reports being unvaccinated. Client denies sv travel out of the [place] in the last 14 days. Ebola Screen: No symptoms or risks identified at this time. The patient reports a positive loss of vision. 17:25 Initial Sepsis Screen: Does the patient meet any 2 criteria? No. Patient's initial sv sepsis screen is negative. Does the patient have a suspected source of infection? No. Patient's initial sepsis screen is negative. Triage Assessment: 17:26 General: Appears in no apparent distress. uncomfortable, Behavior is calm, cooperative. sv Neuro: Level of Consciousness is awake, alert, obeys commands, Gait is steady. Respiratory: Respiratory effort is even, unlabored. Historical: - Allergies: 17:24 Ciprofloxacin HCl; sv 17:24 Clindamycin; sv 17:24 GABAPENTIN; sv 17:24 Neurontin; sv - PMHx: 17:24 Anxiety; Depression; Overdose; PREECLAMPSIA; sv - Immunization history:: Adult Immunizations up to date. - Social history:: Smoking status: Patient reports the use of cigarette tobacco products. - Family history:: not pertinent. - Hospitalizations: : No recent hospitalization is reported. Screenin:21 Abuse screen: Denies threats or abuse. Denies injuries from another. Nutritional ld1 screening: No deficits noted. Tuberculosis screening: No symptoms or risk factors identified. Fall Risk None identified. Assessment: 18:21 General: Appears in no apparent distress. uncomfortable, Behavior is calm, cooperative, ld1 appropriate for age. Pain: Denies pain. Neuro: Level of Consciousness is awake, alert, obeys commands, Oriented to person, place, time, situation. Cardiovascular: Capillary refill < 3 seconds Patient's skin is warm and dry. Respiratory: Airway is patent Respiratory effort is even, unlabored, Respiratory pattern is regular, symmetrical. GI: Abdomen is flat, non-distended. : No signs and/or symptoms were reported regarding the genitourinary system. EENT: Eyes Pt c/o spots in her eyes and itching.. Sclera/Cornea are clear in iris of right eye and iris of left eye. Derm: No signs and/or symptoms reported regarding the dermatologic system. Musculoskeletal: No signs and/or symptoms reported regarding the musculoskeletal system. Vital Signs: 17:25 BP 109 / 80; Pulse 87; Resp 18; Temp 97.8; Pulse Ox 99% ; Weight 49.9 kg; Height 5 ft. sv 3 in. (160.02 cm); Pain 10/10; 17:25 Body Mass Index 19.49 (49.90 kg, 160.02 cm) sv ED Course: 17:08 Patient arrived in ED. as 17:23 Arm band placed on. sv 17:24 Triage completed. sv 17:59 Delores Osullivan, MARTIN is Primary Nurse. ap3 18:06 Deniz Guo MD is Attending Physician. rn 18:20 Ayaka Fernandez MD is Referral Physician. rn 18:21 Patient has correct armband on for positive identification. Placed in gown. Bed in low ld1 position. Call light in reach. Pulse ox on. NIBP on. Door closed. Noise minimized. Warm blanket given. 18:21 No provider procedures requiring assistance completed. Patient did not have IV access ld1 during this emergency room visit. Administered Medications: No medications were administered Outcome: 18:20 Discharge ordered by . rn 18:32 Discharged to home ambulatory. ld1 18:32 Condition: stable 18:32 Discharge instructions given to patient, Instructed on discharge instructions, follow up and referral plans. no drinking with medication, medication usage, Demonstrated understanding of instructions, follow-up care, medications, Prescriptions given X 2. 18:33 Patient left the ED. ld1 Signatures: Kerline Real RN RN Renae Gonzalez Roman, MD MD rn Delores Osullivan RN RN ap3 Marialuisa Buckner RN RN ld1 Corrections: (The following items were deleted from the chart) 17: 17:23 Chief complaint: Patient states: R eye sty x 1 week and went away. Today it now sv silva in bilateral eyes. sv 17: 17:25 Resp 18bpm; Temp 97.8F; 49.9 kg; Height 5 ft. 3 in.; BMI: 19.4; Pain 10/10; sv sv
[2021-01-27] MEDS ORDERED: TETRACAINE HCL 0.5% 4ML OPTH ONE (18:37)
[2021-01-27 18:39] VITALS: BP 109/80; TEMP 97.8; O2SAT 99
== END 2021-01-27 18:33 | disposition home or self-care (01) ==
LOC: ER 17:05
DX: H10.33 Unspecified acute conjunctivitis, bilateral (principal); B00.52 Herpesviral keratitis; Z72.0 Tobacco use; Z88.1 Allergy status to other antibiotic agents; Z88.3 Allergy status to other anti-infective agents; Z88.8 Allergy status to other drugs, medicaments and biological substances
CPT/HCPCS: 99283

== ENCOUNTER → 2023-07-20 | Emergency (ER) | payer OTHER ==
[~2023-07-20] MED LIST: LORAZEPAM 1 MG TABLET ONE
--- NOTE | 2023-07-20 14:44 | ER ---
Nurse's Notes [facility] Name: Shruti Garcia Age: 27 yrs Sex: Female : 1995 Arrival Date: 07/20/2023 Time: 13:31 Bed 19 Private MD: Abdirahman Muñoz Diagnosis: Anxiety disorder, unspecified Presentation: 07/19 13:51 Chief complaint: Feeling anxious, out of Klonopin for 2 months. Coronavirus screen: At hb this time, the client does not indicate any symptoms associated with coronavirus-19. Ebola Screen: No symptoms or risks identified at this time. Initial Sepsis Screen: Does the patient meet any 2 criteria? No. Patient's initial sepsis screen is negative. Does the patient have a suspected source of infection? No. Patient's initial sepsis screen is negative. Risk Assessment: Do you want to hurt yourself or someone else? Patient reports no desire to harm self or others. Onset of symptoms was July 20, 2023. 13:51 Method Of Arrival: Ambulatory hb 13:53 Acuity: TIMOTEO 4 hb Triage Assessment: 13:53 General: Appears in no apparent distress. Behavior is calm, cooperative. Pain: Denies hb pain. Neuro: Level of Consciousness is awake, alert, obeys commands, Oriented to person, place, time, situation. Cardiovascular: Patient's skin is warm and dry. Respiratory: Respiratory effort is even, unlabored, Respiratory pattern is regular, symmetrical. 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 - Social history:: Smoking status: Patient denies any tobacco usage or history of. Screenin:27 [facility] ED Fall Risk Assessment (Adult) History of falling in the last 3 months, ll1 including since admission No falls in past 3 months (0 pts) Confusion or Disorientation No (0 pts) Intoxicated or Sedated No (0 pts) Impaired Gait No (0 pts) Mobility Assist Device Used No (0 pt) Altered Elimination No (0 pt) Score/Fall Risk Level 0 - 2 = Low Risk Oriented to surroundings, Hourly rounding (assess needs \T\ fall precautionary measures) done. Abuse screen: Denies threats or abuse. Nutritional screening: No deficits noted. Tuberculosis screening: No symptoms or risk factors identified. Assessment: 14:05 General: Appears in no apparent distress. Behavior is calm, cooperative, appropriate ll1 for age. General: Reports anxiety. Pain: Denies pain. Neuro: No deficits noted. 14:50 Reassessment: No changes from previously documented assessment. Patient and/or family ll1 updated on plan of care and expected duration. Pain level reassessed. Patient is alert, oriented x 3, equal unlabored respirations, skin warm/dry/pink. Vital Signs: 13:53 BP 121 / 93; Pulse 112; Resp 16; Temp 98.5; Pulse Ox 100% on R/A; Weight 52.16 kg; hb Height 5 ft. 4 in. ; Pain 0/10; 14:50 BP 111 / 82; Pulse 98; Resp 17; Pulse Ox 100% ; ll1 13:53 Body Mass Index 19.74 (52.16 kg, 162.56 cm) hb 13:53 Pain Scale: Adult hb ED Course: 13:34 Patient arrived in ED. mr 13:34 Abdirahman Muñoz MD is Private Physician. mr 13:36 Leidy Ambrocio FNP-C is [facility]. kb 13:36 Deniz Guo MD is Attending Physician. kb 13:53 Arm band placed on. hb 13:55 Triage completed. hb 14:00 Jackson Carver, RN is Primary Nurse. ll1 14:28 Patient has correct armband on for positive identification. Bed in low position. ll1 Provided Education on: ER procedures and process. Cardiac monitoring not applicable on this patient. 15:11 No provider procedures requiring assistance completed. Patient did not have IV access ll1 during this emergency room visit. Administered Medications: 14:05 Drug: LORazepam PO 1 mg PO once Route: PO; ll1 15:11 Follow up: Response: No adverse reaction ll1 Medication: 14:28 VIS not applicable for this client. ll1 Outcome: 14:44 Discharge ordered by . kb 15:12 Discharged to home ambulatory, ll1 15:12 Condition: stable 15:12 Discharge instructions given to patient, Instructed on discharge instructions, follow up and referral plans. Demonstrated understanding of instructions, follow-up care, medications, Prescriptions given X 1, 15:13 Patient left the ED. ll1 Signatures: Leidy Ambrocio, DAK[place]-C SENIOR OCCUPATIONAL THERAPIST-Angelita Liao, Boogie Reg mr Divine Olsen, RN RN Jackson Montes De Oca RN RN ll1 Corrections: (The following items were deleted from the chart) 15:14 14:50 BP 113 / 61; Pulse 98bpm; Resp 17bpm; Pulse Ox 100%; ll1 ll1
--- NOTE | 2023-07-20 14:44 | EDPHYS ---
Physician Documentation [facility] Name: Shruti Garcia Age: 27 yrs Sex: Female : 1995 Arrival Date: 07/20/2023 Time: 13:31 Bed 19 Private MD: Abdirahman Muñoz ED Physician Deniz Guo HPI: 07/19 14:08 This 27 yrs old Female presents to ER via Ambulatory with complaints of Anxiety. kb 14:08 Pt is a 27 year old female who present with anxiety. states she had been on klonipin, kb but ran out about 2 months ago and hasn't been able to get into a psychiatrist. Denies suicidal or homicidal ideations. States the anxiety normal comes and goes, but today it has been constant. . CASER IN: 14:28 LMP N/A - control method, Not ll1 Historical: - Allergies: 13:52 Ciprofloxacin HCl; hb 13:52 Clindamycin; hb 13:52 GABAPENTIN; hb 13:52 Neurontin; hb - PMHx: 13:52 Anxiety; Depression; Overdose; PREECLAMPSIA; hb - Immunization history:: Adult Immunizations up to date. - Social history:: Smoking status: Patient denies any tobacco usage or history of. ROS: 14:08 Constitutional: As per HPI kb Exam: 14:08 Constitutional: This is a well developed, well nourished patient who is awake, alert, kb and in no acute distress. Head/Face: Normocephalic, atraumatic. ENT: Moist Mucous membranes Cardiovascular: Regular rate Respiratory: Respirations even and unlabored. No increased work of breathing. Talking in full sentences Skin: Warm, dry with normal turgor. Normal color. MS/ Extremity: Pulses equal, no cyanosis. Neurovascular intact. Full, normal range of motion. Neuro: Awake and alert, GCS 15, oriented to person, place, time, and situation. Moves all extremities. Normal gait. Vital Signs: 13:53 BP 121 / 93; Pulse 112; Resp 16; Temp 98.5; Pulse Ox 100% on R/A; Weight 52.16 kg; hb Height 5 ft. 4 in. ; Pain 0/10; 14:50 BP 111 / 82; Pulse 98; Resp 17; Pulse Ox 100% ; ll1 13:53 Body Mass Index 19.74 (52.16 kg, 162.56 cm) hb 13:53 Pain Scale: Adult hb MDM: 13:36 Patient medically screened. kb 14:09 Data reviewed: vital signs, nurses notes. kb 14:09 Differential diagnosis: depression, anxiety. Counseling: I had a detailed discussion kb with the patient and/or guardian regarding the historical points, exam findings, and any diagnostic results supporting the discharge/admit diagnosis, the need for outpatient follow up, a family practitioner, to return to the emergency department if symptoms worsen or persist or if there are any questions or concerns that arise at home. 07/19 13:59 Order name: EKG; Complete Time: 13:59 kb 07/19 13:59 Order name: EKG - Nurse/Tech; Complete Time: 14:01 kb Administered Medications: 14:05 Drug: LORazepam PO 1 mg PO once Route: PO; ll1 15:11 Follow up: Response: No adverse reaction ll1 Disposition: 17:22 Co-signature as Attending Physician, Deniz Guo MD I reviewed the patient's care rn provided by the Advanced Practice Provider and agree with the diagnosis and treatment plan. Disposition Summary: 07/20/23 14:44 Discharge Ordered Notes: Location: Home kb Condition: Stable kb Diagnosis - Anxiety disorder, unspecified kb Followup: kb - With: Emergency Department - When: As needed - Reason: Worsening of condition Followup: kb - With: Private Physician - When: 2 - 3 days - Reason: Recheck today's complaints, Continuance of care, Re-evaluation by your physician Discharge Instructions: - Discharge Summary Sheet kb - Panic Attack, [id number] kb - Generalized Anxiety Disorder, Adult kb Forms: - Medication Reconciliation Form kb - Thank You Letter kb - Antibiotic Education kb - Prescription Opioid Use kb - Patient Portal Instructions kb - Leadership Thank You Letter kb Prescriptions: - Hydroxyzine HCl 25 mg Oral tablet - take 1 tablet ORAL route every 8 hours As needed; 12 tablet; Refills: 0, kb Product Selection Permitted Signatures: Leidy Ambrocio FNP-C FNP-Deniz Almaraz MD MD rn Baxter, Heather, RN RN hb Lewis, Lynsay, RN RN ll1
[2023-07-20 15:34] VITALS: BP 113/61; TEMP 98.5; O2SAT 100
== END ==
LOC: ER 13:31
DX: F41.9 Anxiety disorder, unspecified (principal); Z88.1 Allergy status to other antibiotic agents; Z88.8 Allergy status to other drugs, medicaments and biological substances
CPT/HCPCS: 93005

== ENCOUNTER 2023-11-30 10:07 | Emergency (ER) | payer OTHER ==
[2023-11-30 10:43] LABS: Absolute Eosinophils 0.1 K/uL (0-0.5); Absolute Lymphocytes (CBC) 1.2 K/uL (0.7-4.9); Absolute Monocytes 0.3 K/uL (0.1-1.3); Absolute Neutrophil 2.5 K/uL (1.8-8.0); Basophils % 0.5 % (0-1.3); Eosinophils % 2.6 % (0-4.4); Hematocrit 38.4 % (36.0-45.0); Hemoglobin 12.9 g/dL (12.0-15.0); Lymphocytes % 29.1 % (15.3-44.8); MCH 29.9 pg (27.0-35.0); MCHC 33.7 g/dL (32.0-36.0); MCV 88.7 fL (80-100); Monocytes % 6.4 % (3.3-12.3); Neutrophils % 61.4 % (41.7-73.7); Platelets 275 thou/uL (152-406); RBC Red Blood Cell Count 4.33 M/uL (3.86-4.86); Red Cell Distribution Width 12.8 % (12.1-15.2)
[2023-11-30 10:55] LABS: PT Prothrombin Time 11.9 SECONDS (9.4-12.5); PTT, Activated Partial Thromb 27.9 SECONDS (24.3-36.9); Protime INR 1.06
[2023-11-30 10:56] LABS: Specific Gravity 1.021 (1.005-1.030)
[2023-11-30 11:01] LABS: ALT/SGPT 17 U/L (13-56); AST/SGOT 16 U/L (15-37); Albumin 3.7 g/dL (3.4-5.0); Albumin/Globulin Ratio 0.9 (1.1-1.8); Alkaline Phosphatase 72 U/L (45-117); Anion Gap 9.3 mEq/L (5.0-15.0); BUN Blood Urea Nitrogen 15 mg/dL (7-18); Bicarbonate 26 mEq/L (21-32); Bilirubin Total 0.3 mg/dL (0.2-1.0); Globulin 4.3 g/dL (2.3-3.5); Glomerular Filtration Rate 108 ml/min (=/>90); Glucose Level 87 mg/dL (74-106); Potassium 3.3 mEq/L (3.5-5.1); Sodium Level 138 mEq/L (136-145)
[2023-11-30 11:03] LABS: Bilirubin Direct < 0.2 mg/dL (0-0.2); Bilirubin Indirect, Calculated 0.1 mg/dL (0.2-0.8)
[2023-11-30 11:12] LABS: Barbiturates NEGATIVE (NEGATIVE); Benzodiazepines NEGATIVE (NEGATIVE); Cocaine NEGATIVE (NEGATIVE); METHAMPHETAM POSITIVE (NEGATIVE); Methadone NEGATIVE (NEGATIVE); Opiates NEGATIVE (NEGATIVE); Phencyclidine NEGATIVE (NEGATIVE); THC Cannibis NEGATIVE (NEGATIVE)
[2023-11-30 11:14] LABS: Specific Gravity 1.021 (1.005-1.030); Sqamous Epithelial <5 /HPF (None Seen); Urine Bacteria Loaded /HPF (<20); Urine Bilirubin NEGATIVE (Negative); Urine Blood 3+ (OVER) (Negative); Urine Clarity Extremely Turbid (Clear); Urine Color Light-Orange (Yellow); Urine Culture Reflex Order REFLEXED; Urine Glucose NEGATIVE (Negative); Urine Ketones NEGATIVE (Negative); Urine Microscopic Reflex YN ORDER UMIC; Urine Mucus 4+ /HPF (None Seen); Urine Nitrite NEGATIVE (Negative); Urine Protein 2+ (Negative); Urine RBC >50 /HPF (None Seen); Urine Urobilinogen 1+ (Normal); Urine WBC >50 /HPF (<5)
--- NOTE | 2023-11-30 11:59 | EDPHYS ---
Physician Documentation [facility] Name: Shruti Garcia Age: 28 yrs Sex: Female : 1995 Arrival Date: 11/30/2023 Time: 10:07 Bed 17 Private MD: ED Physician Deniz Guo HPI: 11/29 11:53 This 28 yrs old Female presents to ER via EMS with complaints of Suicidal Ideation. rn 11:53 The patient presents to the emergency department with suicide ideation. Onset: The rn symptoms/episode began/occurred yesterday. Associated signs and symptoms: Pertinent positives; anxiety, depression, suicide ideation, Pertinent negatives: fever, hallucinations, homicidal ideation. Severity of symptoms: At their worst the symptoms were moderate. The patient has not experienced similar symptoms in the past. Pt reports recently homeless, having thoughts of killing herself. Has attempted in past with overdose of pills. . TAPPER HELPER: 13:26 LMP N/A - , Not kj2 Historical: - Allergies: 10:20 Ciprofloxacin HCl; ph 10:20 Clindamycin; ph 10:20 GABAPENTIN; ph 10:20 Neurontin; ph - Home Meds: 10:54 Suboxone 8-2 mg sublingual Film 1 film tid [Active]; trazodone 100 mg Oral tablet 1 tab nj1 every day at bedtime [Active]; bupropion HCl 150 mg Oral Tablet, Extended Release 24 hr 1 tab daily [Active]; fluoxetine 40 mg Oral capsule 1 cap daily [Active]; - PMHx: 10:20 Anxiety; Depression; Overdose; PREECLAMPSIA; ph - Immunization history:: Adult Immunizations up to date. - Infectious Disease History:: Denies. - Social history:: Patient uses street drugs, Methamphetamine (Meth) last used 1 week ago, also uses Suboxone daily for opioid addiction, Smoking status: unknown. - Family history:: not pertinent. - Hospitalizations: : No recent hospitalization is reported. ROS: 11:53 Constitutional: Negative for fever, chills, and weight loss, Cardiovascular: Negative rn for chest pain, palpitations, and edema, Respiratory: Negative for shortness of breath, cough, wheezing, and pleuritic chest pain, Abdomen/GI: Negative for abdominal pain, nausea, vomiting, diarrhea, and constipation, MS/Extremity: Negative for injury and deformity, Skin: Negative for injury, rash, and discoloration, Neuro: Negative for headache, weakness, numbness, tingling, and seizure, Exam: 11:53 Constitutional: This is a well developed, well nourished patient who is awake, alert, rn and in no acute distress. Cardiovascular: Regular rate and rhythm. No pulse deficits. Respiratory: No increased work of breathing, no retractions or nasal flaring. Abdomen/GI: Soft, non-tender MS/ Extremity: Pulses equal, no cyanosis. Neuro: Awake and alert, GCS 15 12:54 ECG was reviewed by the Attending Physician. rn Vital Signs: 10:15 BP 112 / 89; Pulse 88; Resp 18; Temp 97.7; Pulse Ox 100% on R/A; Weight 49.9 kg; Height ph 5 ft. 4 in. ; 10:15 Body Mass Index 18.88 (49.90 kg, 162.56 cm) ph MDM: 10:15 Patient medically screened. rn 11:53 Differential diagnosis: depression, suicidal ideations. Data reviewed: vital signs, rn nurses notes, lab test result(s), and as a result, I will admit patient. Counseling: I had a detailed discussion with the patient and/or guardian regarding the historical points, exam findings, and any diagnostic results supporting the discharge/admit diagnosis, lab results, the need for further work-up and treatment in the hospital, the need to transfer to another facility. 11/29 10:15 Order name: Acetaminophen; Complete Time: :11/29 10:15 Order name: Basic Metabolic Panel; Complete Time: : rn 11/29 10:15 Order name: CBC with Diff; Complete Time: 11/29 10:15 Order name: ETOH Level; Complete Time: :11/29 10:15 Order name: Hepatic Function; Complete Time: :11/29 10:15 Order name: PT-INR; Complete Time: :11/29 10:15 Order name: Test, Urine; Complete Time: :11/29 10:15 Order name: Ptt, Activated; Complete Time: :58 rn 11/29 10:15 Order name: Salicylate; Complete Time: : rn 11/29 10:15 Order name: Urinalysis w/ reflexes; Complete Time: :11/29 10:15 Order name: Urine Drug Screen; Complete Time: 11:58 rn 11/29 11:23 Order name: Urine Culture [facility] 11/29 10:15 Order name: EKG - Nurse/Tech; Complete Time: 11:34 rn 11/29 10:15 Order name: IV Saline Lock; Complete Time: 10:39 rn 11/29 10:15 Order name: Labs collected and sent; Complete Time: 10:39 rn 11/29 10:15 Order name: Suicide Precautions; Complete Time: 10:23 rn 11/29 10:15 Order name: Suicide Screening ([place]); Complete Time: 10:23 rn EC:54 Rate is 81 beats/min. Rhythm is regular. QRS [place] is Normal. AR interval is normal. QRS rn interval is normal. QT interval is normal. No Q waves. T waves are Normal. No ST changes noted. Clinical impression: Normal ECG. Interpreted by me. Reviewed by me. Administered Medications: 12:45 Drug: Potassium Chloride PO 40 mEq PO once Route: PO; kj2 21:26 Follow up: Response: No adverse reaction kj2 12:50 Drug: Macrobid PO 100 mg PO once; administer with food Route: PO; kj2 12:50 Follow up: Response: No adverse reaction kj2 Disposition Summary: 11/30/23 11:58 Transfer Ordered Notes: Transfer Location: Psych Facility rn Reason: Higher level of care rn Condition: Stable rn Problem: new rn Symptoms: have improved rn Accepting Physician: (11/30/23 13:28) kj2 Diagnosis - Suicidal ideations rn Forms: - Medication Reconciliation Form rn - SBAR form rn Signatures: Dispatcher [employer] Deniz Salgado MD MD rn Hall, Patricia RN RN Emma Rizzo RN RN [id number] Jocelyne Choudhury, RN RN kj2 Corrections: (The following items were deleted from the chart) 13:28 11:58 rn kj2
--- NOTE | 2023-11-30 11:59 | ER ---
Nurse's Notes [facility] Name: Shruti Garcia Age: 28 yrs Sex: Female : 1995 Arrival Date: 11/30/2023 Time: 10:07 Bed 17 Private MD: Diagnosis: Suicidal ideations Presentation: 11/29 10:14 Chief complaint:. ph 10:15 Chief complaint: EMS states: Pt called EMS for suicidal thoughts, has recently moved to the area w/ , has been homeless approx 1 week, also has hx of meth use, reports last using approx 1 week ago, denies attempt or plan, states that she has felt suicidal in the past when her child past away, has not taken depression medications in 1 week. Coronavirus screen: Vaccine status: Patient reports receiving the 2nd dose of the covid vaccine. Ebola Screen: No symptoms or risks identified at this time. Initial Sepsis Screen: Does the patient meet any 2 criteria? No. Patient's initial sepsis screen is negative. Does the patient have a suspected source of infection? No. Patient's initial sepsis screen is negative. Risk Assessment: Do you want to hurt yourself or someone else? Patient reports no desire to harm self or others. Onset of symptoms was November 30, 2023. 10:15 Method Of Arrival: EMS: [facility] 10:15 Acuity: TIMOTEO 2 Triage Assessment: 10:22 General: Appears in no apparent distress. Behavior is cooperative, crying. Pain: Denies ph pain. Neuro: Level of Consciousness is awake, alert, obeys commands, Oriented to person, place, time, situation. [place]: 13:26 LMP N/A - , Not kj2 Historical: - Allergies: 10:20 Ciprofloxacin HCl; ph 10:20 Clindamycin; ph 10:20 GABAPENTIN; ph 10:20 Neurontin; ph - Home Meds: 10:54 Suboxone 8-2 mg sublingual Film 1 film tid [Active]; trazodone 100 mg Oral tablet 1 tab nj1 every day at bedtime [Active]; bupropion HCl 150 mg Oral Tablet, Extended Release 24 hr 1 tab daily [Active]; fluoxetine 40 mg Oral capsule 1 cap daily [Active]; - PMHx: 10:20 Anxiety; Depression; Overdose; PREECLAMPSIA; ph - Immunization history:: Adult Immunizations up to date. - Infectious Disease History:: Denies. - Social history:: Patient uses street drugs, Methamphetamine (Meth) last used 1 week ago, also uses Suboxone daily for opioid addiction, Smoking status: unknown. - Family history:: not pertinent. - Hospitalizations: : No recent hospitalization is reported. Screenin:59 [facility] ED Fall Risk Assessment (Adult) History of falling in the last 3 months, nj1 including since admission No falls in past 3 months (0 pts) Confusion or Disorientation No (0 pts) Intoxicated or Sedated No (0 pts) Impaired Gait No (0 pts) Mobility Assist Device Used No (0 pt) Altered Elimination No (0 pt) Score/Fall Risk Level 0 - 2 = Low Risk Oriented to surroundings, Maintained a safe environment, Hourly rounding (assess needs \\T\\ fall precautionary measures) done. Abuse screen: Denies threats or abuse. Denies injuries from another. Nutritional screening: No deficits noted. Tuberculosis screening: No symptoms or risk factors identified. Assessment: 10:00 General: Appears in no apparent distress. comfortable, Behavior is calm, cooperative, nj appropriate for age. 10:00 Pain: Denies pain. Neuro: Level of Consciousness is awake, alert, obeys commands, nj1 Oriented to person, place, time, situation. Cardiovascular: Patient's skin is warm and dry. Respiratory: Airway is patent Respiratory effort is even, unlabored. 10:52 Reassessment: Ok by Dr Guo for patient to take her suboxone. Pt had only one film [facility] left in her medications bag. This RN administers medication at this time. 11:22 Reassessment: Security here to collect patients belongings, copy of list given to [facility] security. (2 patient's bags). 11:34 Reassessment: Patient appears in no apparent distress at this time. Patient and/or nj1 family updated on plan of care and expected duration. Pain level reassessed. Patient is alert, oriented x 3, equal unlabored respirations, skin warm/dry/pink. Close monitoring in place (sitter). Psych: 10:00 [place] Suicide Severity Screening: In the past month, have you wished you were kj2 or wished you could go to sleep and not wake up? Patient responds "yes." Based off the client's responses additional C-SSRS screening is required. "In the past month, have you actually had any thoughts of killing yourself?" Patient responds "yes." Based off the client's response additional [place] suicide severity screening questions to be further documented on paper forms. "In your lifetime, have you ever done anything, started to do anything, or prepared to do anything to end your life?" Patient responds "no.". 10:00 Interventions: Removed personal items and placed in bag. Patient placed in hospital kj2 gown. Belonging list filled out. Safety Checks: sitter in place. Patient uses methamphetamines Last use was 1 weeks ago. Commitment: Patient will be a voluntary commitment. 10:00 Objective: Patient is cooperative, Speech is normal, Affect is appropriate. nj1 10:00 Subjective: Having thoughts of suicide. Denies suicidal plan. nj1 Vital Signs: 10:15 BP 112 / 89; Pulse 88; Resp 18; Temp 97.7; Pulse Ox 100% on R/A; Weight 49.9 kg; Height ph 5 ft. 4 in. ; 10:15 Body Mass Index 18.88 (49.90 kg, 162.56 cm) ph ED Course: 10:00 Patient has correct armband on for positive identification. Sitter in place performing nj1 close monitoring. 10:00 Provided Education on: Suicide precautions. nj1 10:14 Patient arrived in ED. ph 10:15 Deniz Guo MD is Attending Physician. rn 10:20 Triage completed. ph 10:22 Arm band placed on Patient placed in an exam room. ph 10:23 Jocelyne Choudhury, MARTIN is Primary Nurse. kj2 10:39 Acetaminophen Sent. em1 10:39 Basic Metabolic Panel Sent. em1 10:39 CBC with Diff Sent. em1 10:39 ETOH Level Sent. em1 10:39 Hepatic Function Sent. em1 10:39 PT-INR Sent. em1 10:39 Test, Urine Sent. em1 10:39 Ptt, Activated Sent. em1 10:39 Salicylate Sent. em1 10:39 Urinalysis w/ reflexes Sent. em1 10:39 Urine Drug Screen Sent. em1 11:34 EKG done, by ED staff, reviewed by Deniz Guo MD. nj1 12:07 faxed chart to [facility] bd 13:08 pt accepted in transfer [facility] Hooper, admin approval given by bd [place]. 13:26 No provider procedures requiring assistance completed. kj2 13:28 IV discontinued, intact, bleeding controlled, No redness/swelling at site. Pressure kj2 dressing applied. Administered Medications: 12:45 Drug: Potassium Chloride PO 40 mEq PO once Route: PO; kj2 21:26 Follow up: Response: No adverse reaction kj2 12:50 Drug: Macrobid PO 100 mg PO once; administer with food Route: PO; kj2 12:50 Follow up: Response: No adverse reaction kj2 Medication: 11:00 VIS not applicable for this client. nj1 Outcome: 11:58 ER care complete, transfer ordered by . rn 13:27 Transferred by [facility] Note: [facility] kj2 13:27 Condition: stable 13:27 Instructed on the need for transfer, 13:28 Patient left the ED. kj2 Signatures: Temi Moser Roman, MD MD rn Cliff Lugo em1 Kamila Pinedo RN RN Emma Padgett RN RN nj1 Jocelyne Choudhury RN RN kj2 Corrections: (The following items were deleted from the chart) 11:15 10:52 Reassessment: Ok by Dr Guo for patient to take her suboxone. Pt had only one nj1 film left in her medications bag. nj1
[2023-11-30] MEDS ORDERED: NITROFURAN MACRO 100 MG CAP PO ONE (12:47)
[2023-11-30] MEDS ORDERED: POTASSIUM CL SA 10 MEQ TAB PO ONE (12:47)
[2023-11-30 14:34] VITALS: BP 112/89; TEMP 97.7; O2SAT 100
--- NOTE | 2023-12-01 13:09 | EKG ---
Test Date: 2023-11-30 Test Time: 11:31:38 Patient Care Technician Instructor: JADA MEASUREMENT RESULTS: Intervals: Rate: 81 OK: 136 QRSD: 80 QT: 404 QTc: 469 [place]: P: 72 OK: 136 QRS: 75 T: 61 INTERPRETIVE STATEMENTS: Normal sinus rhythm Normal ECG Compared to ECG 07/20/2023 13:12:30 Sinus tachycardia no longer present Electronically Signed On 12-01-23 13:05:35 CDT by Nitesh Wu
== END 2023-11-30 13:28 ==
LOC: ER 10:07
DX: R45.851 Suicidal ideations (principal); F32.A Depression, unspecified
CPT/HCPCS: 36415; 80048; 80076; 80143; 80179; 80307; 81001; 81025; 82077; 85025; 85610; 85730; 87086; 87088; 93005

== ENCOUNTER 2024-05-02 18:15 | Inpatient (IN) | payer OTHER, SELFPAY ==
[2024-05-02] MEDS ORDERED: NA CHLORIDE 0.9% 1,000 ML ONE (18:37)
[2024-05-02 18:49] LABS: Specific Gravity 1.007 (1.005-1.030)
[2024-05-02 18:50] LABS: Absolute Eosinophils 0.1 K/uL (0-0.5); Absolute Lymphocytes (CBC) 2.1 K/uL (0.7-4.9); Absolute Monocytes 0.3 K/uL (0.1-1.3); Absolute Neutrophil 2.7 K/uL (1.8-8.0); Basophils % 0.6 % (0-1.3); Eosinophils % 2.1 % (0-4.4); Hematocrit 35.2 % (36.0-45.0); Hemoglobin 12.2 g/dL (12.0-15.0); Lymphocytes % 40.4 % (15.3-44.8); MCH 30.8 pg (27.0-35.0); MCHC 34.6 g/dL (32.0-36.0); MPV 8.3 fL (7.6-11.3); Monocytes % 5.4 % (3.3-12.3); Neutrophils % 51.5 % (41.7-73.7); Nucleated Red Blood Cells % 0.2 % (0-0); Platelets 282 thou/uL (152-406); RBC Red Blood Cell Count 3.96 M/uL (3.86-4.86); Red Cell Distribution Width 13.3 % (12.1-15.2)
[2024-05-02 18:50] LABS: Specific Gravity 1.007 (1.005-1.030); Sqamous Epithelial None Seen /HPF (None Seen); Urine Bacteria <20 /HPF (<20); Urine Bilirubin NEGATIVE (Negative); Urine Blood Negative (Negative); Urine Clarity Clear (Clear); Urine Color Colorless (Yellow); Urine Crystals Unidentified Few /HPF (None Seen); Urine Culture Reflex Order NOT NEEDED; Urine Glucose NEGATIVE (Negative); Urine Ketones NEGATIVE (Negative); Urine Microscopic Reflex YN ORDER UMIC; Urine Nitrite NEGATIVE (Negative); Urine Protein NEGATIVE (Negative); Urine RBC <5 /HPF (None Seen); Urine Urobilinogen Normal (Normal); Urine WBC <5 /HPF (<5); Urine pH 5.5 (5.0-7.0)
[2024-05-02 19:09] LABS: PT Prothrombin Time 11.4 SECONDS (9.4-12.5); PTT, Activated Partial Thromb 29.8 SECONDS (24.3-36.9); Protime INR 1.02
[2024-05-02 19:10] LABS: Barbiturates NEGATIVE (NEGATIVE); Benzodiazepines POSITIVE (NEGATIVE); Cocaine NEGATIVE (NEGATIVE); METHAMPHETAM POSITIVE (NEGATIVE); Methadone NEGATIVE (NEGATIVE); Opiates NEGATIVE (NEGATIVE); Phencyclidine NEGATIVE (NEGATIVE); THC Cannibis NEGATIVE (NEGATIVE)
[2024-05-02 19:13] LABS: AST/SGOT 15 U/L (15-37); Albumin 3.6 g/dL (3.4-5.0); Albumin/Globulin Ratio 0.9 (1.1-1.8); Alkaline Phosphatase 66 U/L (45-117); Anion Gap 7.6 mEq/L (5.0-15.0); BUN Blood Urea Nitrogen 22 mg/dL (7-18); Bicarbonate 27 mEq/L (21-32); Bilirubin Total 0.2 mg/dL (0.2-1.0); Globulin 3.9 g/dL (2.3-3.5); Glomerular Filtration Rate 119 ml/min (=/>90); Glucose Level 117 mg/dL (74-106); Potassium 3.6 mEq/L (3.5-5.1); Protein, Total 7.5 g/dL (6.4-8.2); Sodium Level 138 mEq/L (136-145)
[2024-05-02 19:17] LABS: ALT/SGPT < 14 U/L (13-56); Bilirubin Direct < 0.2 mg/dL (0-0.2)
--- NOTE | 2024-05-02 19:43 | ER ---
Nurse's Notes [facility] [place] Name: Shruti Garcia Age: 28 yrs Sex: Female : 1995 Arrival Date: 05/02/2024 Time: 18:15 Bed 3 Private MD: Diagnosis: Overdose, drug use, altered mental status Presentation: 05/02 18:18 Chief complaint: EMS states: Found in apartment by friends unresponsive. Friends adm 8 rs5 mg Narcan intranasally prior to calling EMS. Pt was responsive to painful stimuli on arrival, 1 mg narcan adm IV by EMS en route. Pt is a known drug user. Coronavirus screen: At this time, the client does not indicate any symptoms associated with coronavirus-19. Ebola Screen: No symptoms or risks identified at this time. Initial Sepsis Screen: Does the patient meet any 2 criteria? HR > 90 bpm. Yes Does the patient have a suspected source of infection? No. Patient's initial sepsis screen is negative. Risk Assessment: Do you want to hurt yourself or someone else? Patient reports no desire to harm self or others. Onset of symptoms was May 02, 2024. 18:18 Method Of Arrival: EMS: [facility] rs5 18:18 Acuity: TIMOTEO 3 rs5 Historical: - Allergies: 18:22 Ciprofloxacin HCl; rs5 18:22 Clindamycin; rs5 18:22 GABAPENTIN; rs5 18:22 Neurontin; rs5 - PMHx: 18:22 Depression; Anxiety; Overdose; PREECLAMPSIA; rs5 - PSHx: 18:22 None; rs5 - Immunization history:: Adult Immunizations up to date. - Infectious Disease History:: Denies. - Social history:: Smoking status: Patient denies any tobacco usage or history of. Screenin:48 [facility] ED Fall Risk Assessment (Adult) History of falling in the last 3 months, ko1 including since admission No falls in past 3 months (0 pts) Confusion or Disorientation Yes (5 pts) Intoxicated or Sedated Yes (3 pts) Impaired Gait Yes (1 pt) Mobility Assist Device Used No (0 pt) Altered Elimination Yes (1 pt) Score/Fall Risk Level 3 or more points = High Risk Oriented to surroundings, Maintained a safe environment, Educated pt \T\ family on fall prevention, incl call for assistance when getting out of bed, Assessed \T\ reinforced patient's understanding of fall precautions, Provided non-skid footwear, Hourly rounding (assess needs \T\ fall precautionary measures) done, Used ambulatory aids as needed (educated on \T\ assisted with), Used gait belt as appropriate Implemented a Fall Risk Plan of Care, Apply high fall risk patient identification: yellow non skid footwear/ fall signage, Activated bed/chair alarm, Remained w/in arm's length of patient and in sight while toileting, Offered frequent toileting (1:1 observation), Remained with patient while ambulating, Utilized family, sitter, or virtual head bookkeeper as indicated. Abuse screen: unknown. Nutritional screening: No deficits noted. Tuberculosis screening: No symptoms or risk factors identified. Assessment: 18:48 General: Appears unkempt, Behavior is lethargic. Pain: Unable to use pain scale. ko1 Patient is disoriented. Neuro: Level of Consciousness is lethargic. Cardiovascular: No deficits noted. Respiratory: No deficits noted. GI: No deficits noted. : No deficits noted. EENT: No deficits noted. Derm: No deficits noted. Musculoskeletal: No deficits noted. 19:30 General: Appears comfortable, Behavior is drowsy. Pain: Unable to use pain scale. FLACC ha1 scale score is 0 out of 10. Neuro: Level of Consciousness is confused, lethargic. Cardiovascular: Capillary refill < 3 seconds Patient's skin is warm and dry. Respiratory: Airway is patent Respiratory effort is even, unlabored, Respiratory pattern is regular, symmetrical. GI: Abdomen is flat, non-distended. : No signs and/or symptoms were reported regarding the genitourinary system. Derm: Skin is pink, warm \T\ dry. Musculoskeletal: Range of motion: intact in all extremities. 20:23 Reassessment: attempted to give report. ha1 20:36 Reassessment: REPORT GIVEN TO MARTIN BABB ICU. dd2 Vital Signs: 18:18 BP 100 / 75; Pulse 104; Resp 17; Pulse Ox 99% on R/A; rs5 18:53 BP 88 / 70; Pulse 88; Resp 14; Temp 97; Pulse Ox 100% on R/A; ko1 20:21 BP 96 / 74; Pulse 89; Resp 19 S; Pulse Ox 99% on R/A; ha1 21:23 BP 124 / 97; Pulse 93; Resp 18 S; Pulse Ox 100% on R/A; ha1 ED Course: 18:17 Patient arrived in ED. sp3 18:17 Sukhi Bell MD is Attending Physician. sp3 18:21 Triage completed. rs5 18:38 Acetaminophen Sent. ko1 18:38 Basic Metabolic Panel Sent. ko1 18:38 CBC with Diff Sent. ko1 18:38 ETOH Level Sent. ko1 18:38 Hepatic Function Sent. ko1 18:38 PT-INR Sent. ko1 18:38 Test, Urine Sent. ko1 18:38 Ptt, Activated Sent. ko1 18:38 Salicylate Sent. ko1 18:38 Urinalysis w/ reflexes Sent. ko1 18:38 Urine Drug Screen Sent. ko1 18:48 No provider procedures requiring assistance completed. Initial lab(s) drawn, by me, ko1 sent to lab. Urine collected: Self catheter specimen, clear, Amount Returned: 350mL EKG done, by ED staff, reviewed by Sukhi Bell MD. Self cath inserted, using sterile technique, 16 Fr., by team automobile assembler, balloon inflated, to gravity drainage, urine specimen collected. returned clear yellow urine. Patient tolerated well. Maintain EMS IV. Dressing intact. Good blood return noted. Site clean \T\ dry. Gauge \T\ site: 22g right ac. Flushed with 10 mL NS. 18:48 Patient has correct armband on for positive identification. Allergy band placed. Fall ko1 risk band placed. Placed in gown. Bed in low position. Call light in reach. Side rails up X2. Provided Education on: reorientation. Client placed on continuous cardiac and pulse oximetry monitoring. NIBP monitoring applied. night monitor on. Door closed. Noise minimized. Lights dimmed. Warm blanket given. Pillow given. 18:59 Mary Madden, MARTIN is Primary Nurse. ko1 19:35 CT Head Brain wo Cont In Process Unspecified. EDMS 19:42 Huey Martínez MD is Hospitalizing Provider. sp3 20:38 Patient admitted, IV remains in place. dd2 21:00 Arm band placed on right wrist. ha1 Administered Medications: 18:40 Drug: NS 0.9% IV 1000 ml IV at 1 bolus Per protocol; to be given as a bolus over 60 ko1 minutes Route: IV; Rate: 1 bolus; Site: right antecubital; 19:40 Follow up: IV Status: Completed infusion; IV Intake: 1000ml dd2 21:23 Follow up: Response: No adverse reaction; IV Status: Completed infusion; IV Intake: ha1 1000ml 19:51 Drug: NARcan IVP 10 mg IVP at 3 mg/hr once Route: IVP; Rate: 3 mg/hr; Site: right dd2 antecubital; 21:00 Follow up: Response: No adverse reaction ha1 21:27 Follow up: Response: No adverse reaction dd2 Medication: 18:48 VIS not applicable for this client. ko1 Intake: 19:40 IV: 1000ml; Total: 1000ml. dd2 21:23 IV: 1000ml; Total: 2000ml. ha1 Outcome: 19:42 Decision to Hospitalize by Provider. sp3 20:37 Admitted to ICU accompanied by nurse, room ICU 3, on monitor, with chart, dd2 20:37 Condition: stable 20:37 Instructed on the need for admit, Demonstrated understanding of instructions, PT'S SPOUSE INSTRUCTED ON ADISSION 21:24 Patient left the ED. ha1 Signatures: Dispatcher [employer] EDSukhi Atwood MD MD sp3 Indu Valladares RN RN ha1 Mary Madden RN RN ko1 Hammad Vargas RN RN rs5 BERNICE CHANDLER RN RN dd2
--- NOTE | 2024-05-02 19:43 | EDPHYS ---
Physician Documentation [facility] Name: Shruti Garcia Age: 28 yrs Sex: Female : 1995 Arrival Date: 05/02/2024 Time: 18:15 Bed 3 Private MD: ED Physician Sukhi Bell HPI: 05/02 18:25 This 28 yrs old Female presents to ER via EMS with complaints of Overdose. sp3 18:25 28-year-old female with a history of anxiety, depression, prior overdose now presents sp3 to the ED via EMS for altered mental status and presumed overdose. EMS was toned out for altered mental status and friends gave a total of 8 mg of intranasal Narcan on scene which patient responded somewhat. EMS gave 1 mg of Narcan IV to which patient was arousable to painful stimuli. A transferred here without difficulty. Upon arrival, 1 additional milligram of EMSs supply of Narcan was given based on my command to which patient was even more awake. EMS denies any signs of foul play or trauma. Blood sugar for them was 70. Review of systems, history, physical not obtainable due to mental status changes and overdose.. Historical: - Allergies: 18:22 Ciprofloxacin HCl; rs5 18:22 Clindamycin; rs5 18:22 GABAPENTIN; rs5 18:22 Neurontin; rs5 - PMHx: 18:22 Depression; Anxiety; Overdose; PREECLAMPSIA; rs5 - PSHx: 18:22 None; rs5 - Immunization history:: Adult Immunizations up to date. - Infectious Disease History:: Denies. - Social history:: Smoking status: Patient denies any tobacco usage or history of. ROS: 18:26 Unable to obtain ROS due to altered mental status, sp3 Exam: 18:26 Constitutional: The patient appears Disheveled female with pinpoint pupils and sp3 arousable to painful stimuli. No signs of obvious trauma. Heart and lung exam normal. Abdomen soft, no rash or bleeding noted. No other overt signs of trauma. Very limited exam secondary to mental status. 19:15 ECG was reviewed by the Attending Physician. EKG demonstrates normal sinus rhythm at 92 sp3 bpm with normal intervals except QTc of 507, normal QRS, normal axis, normal ST's ST segments without evidence of acute ischemia. Vital Signs: 18:18 BP 100 / 75; Pulse 104; Resp 17; Pulse Ox 99% on R/A; rs5 18:53 BP 88 / 70; Pulse 88; Resp 14; Temp 97; Pulse Ox 100% on R/A; ko1 20:21 BP 96 / 74; Pulse 89; Resp 19 S; Pulse Ox 99% on R/A; ha1 21:23 BP 124 / 97; Pulse 93; Resp 18 S; Pulse Ox 100% on R/A; ha1 MDM: 18:17 Medical Screening Exam initiated sp3 18:27 Data reviewed: vital signs, nurses notes, EMS record, diagnostic data from outside 3 facility, lab test result(s), EKG, radiologic studies. ED course: 28-year-old female with altered mental status per differential diagnosis includes IV drug use, drug-related overdose, polypharmacy overdose, electrolyte abnormality, other intracranial process, among others. Will obtain CT scan of the head, continue monitoring mental status and dose Narcan as needed, general labs, urine, UDS, , and general supportive care. Disposition probable admission for at least overnight observation.. 19:17 ED course: UDS positive for benzodiazepine and methamphetamine.. sp3 19:41 ED course: Patient positive for methamphetamine and benzodiazepine. However synthetic sp3 narcotic may still be on board given the fact that the Narcan had a positive effect. We will continue Narcan drip and maintain neurochecks. Currently patient is maintaining her own airway and vital signs are now normal including blood pressure. Patient will be admitted to the ICU until she is more arousable.. 05/02 18:17 Order name: Acetaminophen; Complete Time: : sp3 05/02 18:17 Order name: Basic Metabolic Panel; Complete Time: : sp3 05/02 18:17 Order name: CBC with Diff; Complete Time: 19: sp3 05/02 18:17 Order name: ETOH Level; Complete Time: 19: sp3 05/02 18:17 Order name: Hepatic Function; Complete Time: : sp3 05/02 18:17 Order name: PT-INR; Complete Time: 19: sp3 05/02 18:17 Order name: Test, Urine; Complete Time: 19: sp3 05/02 18:17 Order name: Ptt, Activated; Complete Time: : sp3 05/02 18:17 Order name: Salicylate; Complete Time: 19:21 sp3 05/02 18:17 Order name: Urinalysis w/ reflexes; Complete Time: 19:04 sp3 05/02 18:17 Order name: Urine Drug Screen; Complete Time: 19:17 sp3 05/02 18:28 Order name: CT Head Brain wo Cont; Complete Time: 19:47 sp3 05/02 18:17 Order name: EKG - Nurse/Tech; Complete Time: 18:48 sp3 05/02 18:17 Order name: IV Saline Lock; Complete Time: 18:26 sp3 05/02 18:17 Order name: Labs collected and sent; Complete Time: 18:38 sp3 05/02 18:17 Order name: Self; Complete Time: 18:26 sp3 Administered Medications: 18:40 Drug: NS 0.9% IV 1000 ml IV at 1 bolus Per protocol; to be given as a bolus over 60 ko1 minutes Route: IV; Rate: 1 bolus; Site: right antecubital; 19:40 Follow up: IV Status: Completed infusion; IV Intake: 1000ml dd2 21:23 Follow up: Response: No adverse reaction; IV Status: Completed infusion; IV Intake: ha1 1000ml 19:51 Drug: NARcan IVP 10 mg IVP at 3 mg/hr once Route: IVP; Rate: 3 mg/hr; Site: right dd2 antecubital; 21:00 Follow up: Response: No adverse reaction ha1 21:27 Follow up: Response: No adverse reaction dd2 Disposition Summary: 05/02/24 19:42 Hospitalization Ordered Notes: Hospitalization Status: Inpatient Admission sp3 Provider: Huey Martínez Location: Intensive Care Unit sp3 Condition: Stable sp3 Problem: an acute exacerbation sp3 Symptoms: have worsened sp3 Bed/Room Type: Standard 3 Room Assignment: 3-(05/02/24 20:17) vc1 Diagnosis - Overdose, drug use, altered mental status sp3 Forms: - Medication Reconciliation Form sp3 - SBAR form sp3 - Leadership Thank You Letter sp3 Critical care time excluding procedures: 18:36 Critical care time: Bedside Care: 20 minutes, Consultation: 10 minutes. Total time: 30 sp3 minutes Signatures: Dispatcher [employer] EDSukhi Atwood MD MD sp3 Lashaun Rain RN RN vc1 Mary Madden, RN RN ko1 Hammad Vargas, RN RN rs5 BERNICE CHANDLER, MARTIN RN dd2 Indu Valladares RN ha1 Corrections: (The following items were deleted from the chart) 18:18 18:18 ACETAMINOPHEN+C.LAB.BRZ ordered. EDMS EDMS 18:18 18:18 BASIC METABOLIC PANEL+C.LAB.BRZ ordered. EDMS EDMS 18:18 18:18 CBC+H.LAB.BRZ ordered. EDMS EDMS 18:18 18:18 ETHANOL+C.LAB.BRZ ordered. EDMS EDMS 18:18 18:18 HEPATIC FUNCTION+C.LAB.BRZ ordered. EDMS EDMS 18:18 18:18 PROTIME (+INR)+COAG.LAB.BRZ ordered. EDMS EDMS 18:18 18:18 Test, Urine+UC.LAB.BRZ ordered. EDMS EDMS 18:18 18:18 PTT, ACTIVATED+COAG.LAB.BRZ ordered. EDMS EDMS 18:18 18:18 SALICYLATE+C.LAB.BRZ ordered. EDMS EDMS 18:18 18:18 Urinalysis+U.LAB.BRZ ordered. EDMS EDMS 18:18 18:18 URINE DRUG SCREEN+UC.LAB.BRZ ordered. EDMS EDMS 20:17 19:42 sp3 vc1
--- NOTE | 2024-05-02 19:46 | RAD REPORT ---
EXAM: CT brain without contrast HISTORY: MENTAL STATUS CHANGE COMPARISON: 05/18/2014 TECHNIQUE: Multiple contiguous axial images were obtained and a CT of the brain without contrast. Sag ittal and coronal reformats were performed. One or more of the following dose reduction techniques were used: Automated exposure control, adjust ment of the mA and/or kV according to patient size, and/or iterative reconstruction. FINDINGS: No evidence of hydrocephalus, intracranial hemorrhage, or extra-axial fluid collection. The brain is normal in morphology. No evidence of midline shift or areas of brain edema. The calvarium is intact. The visualized paranasal sinuses and mastoid air cells are essentially clear . IMPRESSION: No evidence of acute intracranial abnormality.
--- NOTE | 2024-05-02 21:32 | P.HP ---
Certification for Inpatient Patient admitted to: Inpatient With expected LOS: >2 Midnights Practitioner: I am a practitioner with admitting privileges, knowledge of patient current condition, hospital course, and medical plan of care. Services: Services provided to patient in accordance with Admission requirements found in Title 42 Section 412.3 of the Code of Federal Regulations Patient History Date of Service: 05/02/24 Reason for admission: overdose History of Present Illness: Concern for overdose 28-year-old female presented via EMS with complaints of overdose. She was noted to have altered mental status her friend gave her 8 mg of intranasal Narcan. On arrival patient also was given 1 mg Narcan by EMS. In the ER she was started on a Narcan drip. Her blood sugar was noted to be in the 70s. Patient in the ER has become slightly more arousable. Her UDS was abnormal. Her past medical history includes depression and anxiety. Allergies ciprofloxacin [From Cipro] Allergy (Intermediate, Verified 12/25/11 23:37) vomiting ciprofloxacin HCl [From Cipro] Allergy (Intermediate, Verified 12/25/11 23:37) vomiting gabapentin [From Neurontin] Allergy (Unverified 10/22/17 12:33) Unknown tramadol Allergy (Verified 06/12/12 23:26) Nausea/Vomiting Clindamycin Allergy (Uncoded 10/22/17 20:00) Unknown No Known All Allergy (Uncoded 09/16/16 14:25) Unknown No Known Aller Allergy (Uncoded 08/29/16 22:51) Unknown No Known Allergies Allergy (Uncoded 04/21/17 15:12) Unknown Home Medications: 1 tab PO DAILY 06/21/11 Cephalexin [Keflex*] 500 mg PO QID #28 cap 07/08/13 Hydrocodone 10/APAP 325 [[place] 10/325*] 1 tab PO Q4HR PRN #20 tab 07/08/13 - Past Medical/Surgical History -: section - Social History Alcohol use: No CD- Drugs: No Caffeine use: Yes Review of Systems 10-point ROS is otherwise unremarkable Physical Examination - Physical Exam General: Delirious HEENT: Atraumatic Respiratory: Clear to auscultation bilaterally, Normal air movement Cardiovascular: Regular rate/rhythm Gastrointestinal: Non-distended - Studies Laboratory Data (last 24 hrs) 05/02/24 05/02/24 05/02/24 18:30 18:30 18:30 WBC 5.20 Hgb 12.2 Hct 35.2 L Plt Count 282 PT 11.4 INR 1.02 APTT 29.8 Sodium 138 Potassium 3.6 BUN 22 H Creatinine 0.70 Glucose 117 H Total Bilirubin 0.2 AST 15 ALT < 14 Alkaline Phosphatase 66 Assessment and Plan - Problems (Diagnosis) (1) Overdose Current Visit: Yes Status: Acute - Plan 28-year-old female presents with overdose Overdose abnormal UDS Anxiety Polysubstance use Plan: Admit to ICU Continue Narcan drip N.p.o. IV fluids She may need Precedex if becomes too agitated - Advance Directives Does patient have a Living Will: No Does patient have a Durable POA for Healthcare: No
[2024-05-02 21:46] VITALS: O2SAT 99; BMI 20.9
[2024-05-02] MEDS: NA CHLORIDE 0.9% IV ONE (22:02)
[2024-05-02] MEDS: NALOXONE IV ONE (22:02)
[2024-05-02] MEDS: NA CHLORIDE 0.9% 1,000 ML IV SCH (22:08)
[2024-05-03] MEDS: ENOXAPARIN 40 MG/0.4 ML SQ SCH (08:30)
[2024-05-03 09:58] VITALS: TEMP 97.6
[2024-05-03 13:23] VITALS: BP 105/81
--- NOTE | 2024-05-07 10:58 | EKG ---
Test Date: 2024-05-02 Test Time: 18:44:23 Fluorescent Solution Mixer: SANTIAGO MEASUREMENT RESULTS: Intervals: Rate: 92 GA: 156 QRSD: 80 QT: 410 QTc: 507 [place]: P: 66 GA: 156 QRS: 58 T: 27 INTERPRETIVE STATEMENTS: Normal sinus rhythm Prolonged QT Abnormal ECG Compared to ECG 11/30/2023 11:31:38 Prolonged QT interval now present Electronically Signed On 05-07-24 10:52:45 TRACK SWEEPER by Nabor Dow
== END 2024-05-03 12:00 | disposition home or self-care (01) | DRG 917 ==
LOC: ER 18:15 → ERHOLD 19:51 → 3RD-ICU 20:53
PROVIDERS: ADMIT Internal Medicine; ATTEND Hospitalist
DX: T43.621A Poisoning by amphetamines, accidental (unintentional), initial encounter (principal); G92.8 Other toxic encephalopathy; F32.A Depression, unspecified; F41.9 Anxiety disorder, unspecified; Z88.1 Allergy status to other antibiotic agents; Z88.8 Allergy status to other drugs, medicaments and biological substances
CPT/HCPCS: 36415; 51702; 70450; 80048; 80076; 80143; 80179; 80307; 81001; 81025; 82077; 85025; 85610; 85730; 93005; 96361; 96374; 99285; J1650; J2310; J7030

== ENCOUNTER 2024-12-15 22:05 | Emergency (ER) | payer SELFPAY ==
[2024-12-15] MEDS ORDERED: NA CHLORIDE 0.9% 500 ML ONE (23:10)
[2024-12-15] MEDS ORDERED: NA CHLORIDE 0.9% 1,000 ML ONE (23:10)
[2024-12-15 23:46] LABS: Absolute Lymphocytes (CBC) 1.7 K/uL (0.7-4.9); Hematocrit 33.0 % (36.0-45.0); Hemoglobin 11.4 g/dL (12.0-15.0); MCH 29.6 pg (27.0-35.0); MCHC 34.5 g/dL (32.0-36.0); MCV 85.7 fL (80-100); MPV 9.2 fL (7.6-11.3); Nucleated RBC Absolute Count 0.0 (0-0); Nucleated Red Blood Cells % 0.0 % (0-0); RBC Red Blood Cell Count 3.85 M/uL (3.86-4.86); White Blood Count 4.20 thou/uL (4.3-10.9)
[2024-12-15 23:53] LABS: PT Prothrombin Time 13.4 SECONDS (10-13.0); Protime INR 1.19
--- NOTE | 2024-12-16 00:05 | RAD REPORT ---
INDICATION: COUGH COMPARISON: No existing relevant imaging studies are available FINDINGS: Single frontal view of the chest was obtained. SUPPORT DEVICES: None HEART/MEDIASTINUM: Cardiomediastinal contours are normal. LUNGS/PLEURA: Lungs are clear. No pleural effusion or pneumothorax. OTHER: No other significant findings. IMPRESSION: No acute findings. Electronically signed by: Avinash Brown DO 12/15/2024 11:57 PM CDT RP NR Due to temporary technical issues with the PACS/[employer] reporting system, reports are being claude d by the in-house radiologist without review as a courtesy to ensure prompt reporting the interpreting radiologist is fully responsible for the content of the report. Transcribed Date/Time: 12/16/2024 12:05 AM
[2024-12-16 00:14] LABS: ALT/SGPT 17 U/L (13-56); AST/SGOT 16 U/L (15-37); Albumin 4.0 g/dL (3.4-5.0); Albumin/Globulin Ratio 1.1 (1.1-1.8); Alkaline Phosphatase 61 U/L (45-117); Anion Gap 11.5 mEq/L (5.0-15.0); BUN Blood Urea Nitrogen 20 mg/dL (7-18); Globulin 3.7 g/dL (2.3-3.5); Glucose Level 58 mg/dL (74-106); Magnesium 2.0 mg/dL (1.6-2.4); NT PRO-BNP 55 pg/mL (<125); Potassium 3.5 mEq/L (3.5-5.1)
[2024-12-16 00:31] LABS: Bilirubin Indirect, Calculated 0.3 mg/dL (0.2-0.8); Troponin High Sensitivity < 3.0 pg/mL (<58.9)
--- NOTE | 2024-12-16 00:52 | EDPHYS ---
Physician Documentation [facility] Name: Shruti Garcia Age: 29 yrs Sex: Female : 1995 Arrival Date: 12/15/2024 Time: 22:05 Bed 7 Private MD: ED Physician Tye Gallegos HPI: 12/15 22:57 This 29 yrs old Female presents to ER via EMS with complaints of Altered georges Mental Status. 22:57 The patient presents with trouble concentrating. Onset: The symptoms/episode georges began/occurred 1 day(s) ago. Possible causes: drug use, low blood sugar, unknown, HEAT EXHAUSTION. Patient's baseline: Neuro:. [employer]: 22:18 LMP 12/08/2024, unknown al5 Historical: - Allergies: 22:18 Ciprofloxacin HCl; al5 22:18 Clindamycin; al5 22:18 GABAPENTIN; al5 22:18 Neurontin; al5 - PMHx: 22:18 Anxiety; Depression; Overdose; PREECLAMPSIA; al5 - PSHx: 22:18 None; al5 - Immunization history:: Adult Immunizations up to date. - Infectious Disease History:: Denies. - Social history:: Smoking status: Patient reports the use of cigarette tobacco products, smokes one-half pack cigarettes per day, Patient uses street drugs, Methamphetamine (Meth). ROS: 23:01 Constitutional: Negative for fever, chills, and weight loss, Eyes: Negative for injury, georges pain, redness, and discharge, ENT: Negative for injury, pain, and discharge, Neck: Negative for injury, pain, and swelling, Cardiovascular: Negative for chest pain, palpitations, and edema, Respiratory: Negative for shortness of breath, cough, wheezing, and pleuritic chest pain, Abdomen/GI: Negative for abdominal pain, nausea, vomiting, diarrhea, and constipation, Back: Negative for injury and pain, : Negative for injury, bleeding, discharge, and swelling, MS/Extremity: Negative for injury and deformity, Skin: Negative for injury, rash, and discoloration, Psych: Negative for depression, anxiety, suicide ideation, homicidal ideation, and hallucinations, Allergy/Immunology: Negative for hives, rash, and allergies, Endocrine: Negative for neck swelling, polydipsia, polyuria, polyphagia, and marked weight changes, Hematologic/Lymphatic: Negative for swollen nodes, abnormal bleeding, and unusual bruising, 23:01 Neuro: Positive for altered mental status, dizziness, near syncope, weakness, Exam: 23:01 Constitutional: This is a well developed, well nourished patient who is awake, alert, georges and in no acute distress. Head/Face: Normocephalic, atraumatic. Eyes: Pupils equal round and reactive to light, extra-ocular motions intact. Lids and lashes normal. Conjunctiva and sclera are non-icteric and not injected. Cornea within normal limits. Periorbital areas with no swelling, redness, or edema. ENT: Nares patent. No nasal discharge, no septal abnormalities noted. Tympanic membranes are normal and external auditory canals are clear. Oropharynx with no redness, swelling, or masses, exudates, or evidence of obstruction, uvula midline. Mucous membranes moist. Neck: Trachea midline, no thyromegaly or masses palpated, and no cervical lymphadenopathy. Supple, full range of motion without nuchal rigidity, or vertebral point tenderness. No Meningismus. Chest/axilla: Normal chest wall appearance and motion. Nontender with no deformity. No lesions are appreciated. Cardiovascular: Regular rate and rhythm with a normal S1 and S2. No gallops, murmurs, or rubs. Normal PMI, no JVD. No pulse deficits. Respiratory: Lungs have equal breath sounds bilaterally, clear to auscultation and percussion. No rales, rhonchi or wheezes noted. No increased work of breathing, no retractions or nasal flaring. Abdomen/GI: Soft, non-tender, with normal bowel sounds. No distension or tympany. No guarding or rebound. No evidence of tenderness throughout. Back: No spinal tenderness. No costovertebral tenderness. Full range of motion. Skin: Warm, dry with normal turgor. Normal color with no rashes, no lesions, and no evidence of cellulitis. MS/ Extremity: Pulses equal, no cyanosis. Neurovascular intact. Full, normal range of motion., bilateral aka Neuro: Awake and alert, GCS 15, oriented to person, place, time, and situation. Cranial nerves II-XII grossly intact. Motor strength 5/5 in all extremities. Sensory grossly intact. Cerebellar exam normal. Normal gait. Psych: Awake, alert, with orientation to person, place and time. Behavior, mood, and affect are within normal limits. 23:01 ECG was reviewed by the Attending Physician. 12/16 00:54 ECG was reviewed by the Attending Physician. [facility] Vital Signs: 12/15 22:08 BP 103 / 83; Pulse 91; Resp 18; Temp 98.3(O); Pulse Ox 100% on R/A; Weight 49.9 kg; oe Height 5 ft. 3 in. ; 12/16 00:44 BP 99 / 65; Pulse 104; Resp 18; Pulse Ox 100% ; cp4 02:30 BP 104 / 80; Pulse 98; Resp 16; Pulse Ox 100% on R/A; kb4 12/15 22:08 Body Mass Index 19.49 (49.90 kg, 160.02 cm) oe MDM: 12/15 22:12 Medical Screening Exam initiated georges 23:02 Differential Diagnosis: CVA, electrolyte abnormality, hypoglycemia, intracranial bleed, georges overdose, pneumonia, seizure, sepsis, TIA, UTI, volume depletion. Data reviewed: vital signs, nurses notes, lab test result(s), EKG, radiologic studies, CT scan, plain films. Consideration of Admission/Observation Escalation of care including admission/observation considered. I considered the following discharge prescriptions or medication management in the emergency department Medications were administered in the Emergency Department. See MAR. Independent interpretation of the following test(s) in the Emergency Department EKG: See my EKG interpretation above. Test considered but Not performed: MRI: no mri brain. Care significantly affected by the following chronic conditions: anxiety , depression, overdose. 12/15 22:14 Order name: Basic Metabolic Panel; Complete Time: 00:49 [facility] 12/15 22:14 Order name: CBC with Diff; Complete Time: 00:24 [facility] 12/15 22:14 Order name: LFT's; Complete Time: 00:49 [facility] 12/15 22:14 Order name: Magnesium; Complete Time: 00:49 [facility] 12/15 22:14 Order name: NT PRO-BNP; Complete Time: 00:49 [facility] 12/15 22:14 Order name: PT-INR; Complete Time: 23:56 [facility] 12/15 22:14 Order name: Troponin HS; Complete Time: 00:49 [facility] 12/15 22:14 Order name: CPK; Complete Time: 00:49 [facility] 12/15 22:14 Order name: UA Rfx Jean Cult if indicated; Complete Time: 01:49 [facility] 12/15 22:14 Order name: PREGU; Complete Time: 01:49 [facility] 12/15 23:04 Order name: Acetaminophen; Complete Time: 00:24 [facility] 12/15 23:04 Order name: ETOH Level; Complete Time: 00:24 [facility] 12/15 23:04 Order name: Salicylate; Complete Time: 00:06 [facility] 12/15 23:04 Order name: Urine Drug Screen [facility] 12/15 22:14 Order name: XRAY Chest (1 view) [facility] 12/15 23:04 Order name: EKG; Complete Time: 23:05 [facility] 12/15 22:14 Order name: Cardiac monitoring; Complete Time: 23:28 [facility] 12/15 22:14 Order name: EKG - Nurse/Tech; Complete Time: 23:17 [facility] 12/15 22:14 Order name: IV Saline Lock; Complete Time: 23:17 [facility] 12/15 22:14 Order name: Labs collected and sent; Complete Time: 23:17 [facility] 12/15 22:14 Order name: O2 Per Protocol; Complete Time: 23:17 [facility] 12/15 22:14 Order name: O2 Sat Monitoring; Complete Time: 23:17 [facility] 12/15 23:04 Order name: Suicide Screening ([place]); Complete Time: 23:17 [facility] 12/16 00:50 Order name: PO challenge: JUICE; Complete Time: 01:03 [facility] EC/24 00:54 Rate is 93 beats/min. Rhythm is regular. QRS [place] is Normal. SD interval is normal. QRS georges interval is normal. QT interval is prolonged at 497 msec. No Q waves. T waves are Normal. No ST changes noted. Clinical impression: NSR w/ Non-specific ST/T Changes and No evidence of ischemia. Interpreted by me. Reviewed by me. Administered Medications: 12/15 23:16 Drug: NS 0.9% IV (30 ml/kg) 30 ml/kg IV at bolus once; Sepsis Protocol; to be given as al5 a bolus over 90 minutes Route: IV; Rate: bolus; Site: left antecubital; 12/16 02:45 Follow up: Response: No adverse reaction; IV Status: Completed infusion; IV Intake: al5 1500ml Disposition Summary: 12/16/24 00:51 Discharge Ordered Notes: Location: Home georges Problem: new georges Symptoms: have improved georges Condition: Stable georges Diagnosis - Altered mental status, unspecified georges - Weakness georges - Heat exhaustion, unspecified georges - Other hypoglycemia georges - Hypoglycemia, unspecified georges Followup: georges - With: Private Physician - When: 2 - 3 days - Reason: Recheck today's complaints, Continuance of care, Re-evaluation by your physician Discharge Instructions: - Discharge Summary Sheet georges - Confusion georges - Hypoglycemia georges - Weakness georges - Fatigue georges - Near-Syncope, Cyki-kn-Ormo georges - Weakness, Flca-tw-Phxn georges - Aspirin and Your Heart georges - Hypoglycemia, Iaqz-pt-Ddbz georges - Deconditioning georges Forms: - Medication Reconciliation Form georges - Antibiotic Education georges - Prescription Opioid Use georges - Patient Portal Instructions georges - Leadership Thank You Letter georges Signatures: Dispatcher [employer] EDTye Angel MD MD cha Langhorst, Amanda RN RN al5 Corrections: (The following items were deleted from the chart) 12/15 22:15 22:15 BASIC METABOLIC PANEL+C.LAB.BRZ ordered. EDMS EDMS 22:15 22:15 CBC+H.LAB.BRZ ordered. EDMS EDMS 22:15 22:15 HEPATIC FUNCTION+C.LAB.BRZ ordered. EDMS EDMS 22:15 22:15 MAGNESIUM+C.LAB.BRZ ordered. EDMS EDMS 22:15 22:15 PROBNP+C.LAB.BRZ ordered. EDMS EDMS 22:15 22:15 PROTIME (+INR)+COAG.LAB.BRZ ordered. EDMS EDMS 22:15 22:15 Troponin High Sensitivity+C.LAB.BRZ ordered. EDMS EDMS 22:15 22:15 CREATINE PHOSPHOKINASE+C.LAB.BRZ ordered. EDMS EDMS 22:15 22:15 UA Rfx Jean Cult if indicated+U.LAB.BRZ ordered. EDMS EDMS 22:15 22:15 Test, Urine+UC.LAB.BRZ ordered. EDMS EDMS 22:15 22:15 Chest Single View+RAD.RAD.BRZ ordered. EDMS EDMS 22:15 22:15 Head Brain Wo Cont+CT.RAD.BRZ ordered. EDMS EDMS 23:05 23:05 ACETAMINOPHEN+C.LAB.BRZ ordered. EDMS EDMS 23:05 23:05 ETHANOL+C.LAB.BRZ ordered. EDMS EDMS 23:05 23:05 PTT, ACTIVATED+COAG.LAB.BRZ ordered. EDMS EDMS 23:05 23:05 SALICYLATE+C.LAB.BRZ ordered. EDMS EDMS 23:05 23:05 URINE DRUG SCREEN+UC.LAB.BRZ ordered. EDMS EDMS
--- NOTE | 2024-12-16 00:52 | ER ---
Nurse's Notes [facility] Name: Shruti Garcia Age: 29 yrs Sex: Female : 1995 Arrival Date: 12/15/2024 Time: 22:05 Bed 7 Private MD: Diagnosis: Altered mental status, unspecified;Weakness;Heat exhaustion, unspecified;Other hypoglycemia;Hypoglycemia, unspecified Presentation: 12/15 22:18 Chief complaint: EMS states: patient homeless and was outside all day, felt fine this al5 morning, but by this afternoon did not feel right. ems states that once patient was able to be in AC, was more alert. Coronavirus screen: At this time, the client does not indicate any symptoms associated with coronavirus-19. Ebola Screen: No symptoms or risks identified at this time. Initial Sepsis Screen: Does the patient meet any 2 criteria? HR > 90 bpm. No. Patient's initial sepsis screen is negative. Does the patient have a suspected source of infection? No. Patient's initial sepsis screen is negative. Risk Assessment: Do you want to hurt yourself or someone else? Patient reports no desire to harm self or others. Onset of symptoms was December 15, 2024. 22:18 Method Of Arrival: EMS: [facility] al5 22:18 Acuity: TIMOTEO 3 al5 Triage Assessment: 22:18 General: Appears in no apparent distress. comfortable, Behavior is calm, cooperative. al5 Pain: Complains of pain in back. EENT: No signs and/or symptoms were reported regarding the EENT system. Neuro: Level of Consciousness is awake, alert, obeys commands, Oriented to person, place, time, situation. Cardiovascular: Capillary refill < 3 seconds Patient's skin is warm and dry. Respiratory: Airway is patent Respiratory effort is even, unlabored, Respiratory pattern is regular, symmetrical. GI: No signs and/or symptoms were reported involving the gastrointestinal system. : No signs and/or symptoms were reported regarding the genitourinary system. Derm: Skin is intact, is healthy with good turgor, Skin is pink, warm \\T\\ dry. normal. Musculoskeletal: Circulation, motion, and sensation intact. Range of motion: intact in all extremities. 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 - Infectious Disease History:: Denies. - Social history:: Smoking status: Patient reports the use of cigarette tobacco products, smokes one-half pack cigarettes per day, Patient uses street drugs, Methamphetamine (Meth). Screenin:18 [facility] ED Fall Risk Assessment (Adult) History of falling in the last 3 months, al5 including since admission No falls in past 3 months (0 pts) Confusion or Disorientation No (0 pts) Intoxicated or Sedated No (0 pts) Impaired Gait No (0 pts) Mobility Assist Device Used No (0 pt) Altered Elimination No (0 pt) Score/Fall Risk Level 0 - 2 = Low Risk Oriented to surroundings, Maintained a safe environment, Hourly rounding (assess needs \\T\\ fall precautionary measures) done. Abuse screen: Denies threats or abuse. Denies injuries from another. Nutritional screening: No deficits noted. Tuberculosis screening: No symptoms or risk factors identified. Assessment: 22:18 Reassessment: see triage asessment. al5 23:19 Reassessment: Patient appears in no apparent distress at this time. No changes from al5 previously documented assessment. Patient and/or family updated on plan of care and expected duration. Pain level reassessed. Patient is alert, oriented x 3, equal unlabored respirations, skin warm/dry/pink. 12/16 01:30 Reassessment: Patient appears in no apparent distress at this time. No changes from al5 previously documented assessment. Patient and/or family updated on plan of care and expected duration. Pain level reassessed. Patient is alert, oriented x 3, equal unlabored respirations, skin warm/dry/pink. discharge pending UA. 02:40 Reassessment: Patient appears in no apparent distress at this time. No changes from al5 previously documented assessment. Patient and/or family updated on plan of care and expected duration. Pain level reassessed. Patient is alert, oriented x 3, equal unlabored respirations, skin warm/dry/pink. Psych: 08/23 23:17 [place] Suicide Severity Screening: In the past month, have you wished you were al5 or wished you could go to sleep and not wake up? Patient responds "No." "In the past month, have you actually had any thoughts of killing yourself?" Patient responds "no." "In your lifetime, have you ever done anything, started to do anything, or prepared to do anything to end your life?" Patient responds "no.". Subjective: Delusions are denied, Hallucinations are denied. Objective: Patient is cooperative, Speech is normal, Affect is appropriate. Interventions: n/a. Safety Checks: n/a. states she does meth sometimes. Commitment: n/a. Vital Signs: 22:08 BP 103 / 83; Pulse 91; Resp 18; Temp 98.3(O); Pulse Ox 100% on R/A; Weight 49.9 kg; oe Height 5 ft. 3 in. ; 12/16 00:44 BP 99 / 65; Pulse 104; Resp 18; Pulse Ox 100% ; cp4 02:30 BP 104 / 80; Pulse 98; Resp 16; Pulse Ox 100% on R/A; kb4 12/15 22:08 Body Mass Index 19.49 (49.90 kg, 160.02 cm) oe ED Course: 12/15 22:06 Patient arrived in ED. [email or web address] 22:12 Tye Gallegos MD is Attending Physician. georges 22:18 Arm band placed on right wrist. Patient placed in the treatment room, in view of staff al5 members, on pulse oximetry. 22:18 Patient has correct armband on for positive identification. Bed in low position. Call al5 light in reach. Side rails up X 1. Provided Education on: plan of care. 22:18 No provider procedures requiring assistance completed. al5 22:30 Triage completed. al5 23:16 Inserted saline lock: 22 gauge in left antecubital area, using aseptic technique. al5 ,using aseptic technique. done by Orestes Blood collected. Flushed with 10 mL NS. 23:20 Delores Mosher, RN is Primary Nurse. al5 23:29 XRAY Chest (1 view) In Process Unspecified. EDMS 12/16 01:18 Radiology exam delayed due to pt said to come back later. ag6 02:44 IV discontinued, intact, bleeding controlled, No redness/swelling at site. Pressure al5 dressing applied. Administered Medications: 12/15 23:16 Drug: NS 0.9% IV (30 ml/kg) 30 ml/kg IV at bolus once; Sepsis Protocol; to be given as al5 a bolus over 90 minutes Route: IV; Rate: bolus; Site: left antecubital; 12/16 02:45 Follow up: Response: No adverse reaction; IV Status: Completed infusion; IV Intake: al5 1500ml Medication: 12/15 22:18 VIS not applicable for this client. al5 Intake: 12/16 02:45 IV: 1500ml; Total: 1500ml. al5 Outcome: 00:51 Discharge ordered by . georges 02:44 Discharged to home ambulatory, al5 02:44 Condition: good 02:44 Discharge instructions given to patient, Instructed on discharge instructions, Demonstrated understanding of instructions, 02:48 Patient left the ED. al5 Signatures: Dispatcher [employer] EDMS Tye Gallegos MD MD cha Espinosa, Orlando oe Gutierrez, Autumn ag6 Preethi Erickson Christina cp4 Delores Mosher RN RN al5 Janny Sandoval RN RN kb4 Corrections: (The following items were deleted from the chart) 02:47 02:45 BP 104 / 80; Pulse 98bpm; Resp 16bpm; Pulse Ox 100% RA; kb4 kb4 02:48 01:30 Reassessment: discharge pending UA al5 al5
[2024-12-16 01:41] LABS: Urine Microscopic Reflex YN NO UMIC
[2024-12-16 01:51] LABS: METHAMPHETAM POSITIVE (NEGATIVE); THC Cannibis NEGATIVE (NEGATIVE)
[2024-12-16 02:53] VITALS: TEMP 98.3; O2SAT 100
[2024-12-16 02:56] VITALS: BP 104/80
== END 2024-12-16 02:48 | disposition home or self-care (01) ==
LOC: ER 22:05
DX: R41.82 Altered mental status, unspecified (principal); R53.1 Weakness; T67.5XXA Heat exhaustion, unspecified, initial encounter; E16.1 Other hypoglycemia
CPT/HCPCS: 36415; 71045; 80048; 80076; 80143; 80179; 80307; 81003; 81025; 82077; 82550; 83735; 83880; 84484; 85025; 85610; 93005; 96365; 96366; 99284; J7030; J7040